=== PATIENT | female | born 1930 | race Caucasian/White ===

== ENCOUNTER 2017-06-21 12:30 | Outpatient (CLI) | payer MEDICARE, OTHER | END 2017-06-21 12:31 | disposition home or self-care (01) | LOC: BICRAD 12:30 | PROVIDERS: ATTEND Internal Medicine Rheumatology | DX: M54.5 Low back pain (principal); M47.896 Other spondylosis, lumbar region; M54.6 Pain in thoracic spine; M85.88 Other specified disorders of bone density and structure, other site; M41.9 Scoliosis, unspecified | CPT/HCPCS: 72070; 72100 ==

== ENCOUNTER 2017-07-10 08:56 | Inpatient (IN) | payer MEDICARE, OTHER ==
[2017-07-10 09:37] LABS: INR-International Normal Ratio 1.9
[2017-07-10 09:40] LABS: Band 29 % (5-11); Hemoglobin 11.2 g/dL (12.0-16.0); Lymphocytes 5 % (21-51); MDiff Complete? YES; Mean Corpuscular HGB CONC 32.2 g/dL (32.0-36.0); Mean Corpuscular Hemoglobin 31.9 pg (27.0-31.0); Mean Corpuscular Volume 99.2 fl (81.0-99.0); Mean Platelet Volume 7.6 fL (7.4-10.4); Metamyelocyte 1 % (0-0); Monocytes 4 % (0-10); Neutrophil 61 % (42-75); Platelet Count 332 thou/uL (130-400); RBC Distribution Width 14.3 % (11.5-14.5); Red Blood Cell (RBC) Count 3.51 mill/uL (4.20-5.40); Toxic Granulation SLIGHT; Vacuoles SLIGHT; White Blood Cell (WBC) Count 13.9 thou/uL (4.8-10.8)
[2017-07-10 09:43] LABS: ALT (SGPT) 12 U/L (8-55); AST (SGOT) 18 U/L (5-34); Albumin 3.4 g/dL (3.4-4.8); Alkaline Phosphatase 61 U/L (40-150); Anion Gap 17 mmol/L (10-20); BUN (Urea Nitrogen) 60 mg/dL (9.8-20.1); Bilirubin, Total 0.5 mg/dL (0.2-1.2); Calc. Creatinine Clearance 0 mL/min (70-130); Calcium 11.3 mg/dL (7.8-10.44); Carbon Dioxide 29 mmol/L (23-31); Chloride 93 mmol/L (98-107); Estimated GFR-MDRD 8; Glucose 114 mg/dL (83-110); Potassium 4.1 mmol/L (3.5-5.1); Protein, Total 6.4 g/dL (6.0-8.3); Sodium 135 mmol/L (136-145)
[2017-07-10 09:50] LABS: Actual Bicarbonate (HCO3a) 27.7 mEq/L (22-26); Base Excess (BEa) 4.2 mEq/L (0 (+/-) 2.5); CO2 Tension 37.1 mmHg (35.0-45.0); Calcium, Ionized 1.3 mmol/L (1.12-1.30); Hematocrit-ABG 33.8 % (36.0-47.0); Hemoglobin (Hb) 9.9 g/dL (12.0-16.0); O2 Tension (PaO2) 85.3 mmHg (80.0-100.0); pH, Arterial 7.49 (7.35-7.45)
[2017-07-10 09:51] LABS: Analyzer IN Cardio ER
[2017-07-10 09:52] LABS: ALV-art Gradient 84.325 (0-20); Puncture Site RRA
[2017-07-10 09:53] LABS: CKMB 3.5 ng/mL (0-6.6); Troponin I 0.204 ng/mL (< 0.028)
[2017-07-10 10:23] LABS: Bilirubin Small (Negative); Blood, Urine Negative (Negative); Clarity CLOUDY (Clear); Glucose, Urine (Dipstick) Negative (Negative); Leukocyte Negative (Negative); Nitrite Negative (Negative); Protein, Urine (Dipstick) 100 mg/dL (Neg-Trace); Urobilinogen 0.2 mg/dL (0.2-1.0)
[2017-07-10 10:26] LABS: Bacteria/HPF None Seen HPF (None Seen); Hyaline Casts/LPF 0-3 HYALINE CAST LPF (0-3 Hyaline); Squamous Epithelial None Seen HPF (0-3); WBC/HPF 0-3 HPF (0-3)
--- NOTE | 2017-07-10 11:04 | RAD ---
FRONTAL VIEW CHEST: COMPARISON: 07/07/17. INDICATION: Dyspnea. FINDINGS: There is redemonstration of right-side tunneled vascular catheter. No lobar consolidation. Linear d ensity at the left lower lung, laterally, may relate to atelectasis. No effusion or discrete pneumot horax. There is extrinsic artifact limiting detail. No additional significant interval change. IMPRESSION: 1. No lobar consolidation. 2. Additional details are described above. POS: [facility]
[2017-07-10] MEDS ORDERED: cefTRIAXone\\ROCEPHIN 1 GM in Sodium Chloride 0.9% 100 ML IVPB SCH (11:15)
[2017-07-10] MEDS ORDERED: Dextrose 5% in Water 1,000 ML IV PRN (11:16)
[2017-07-10] MEDS ORDERED: Dextrose 50% Abboject 50 ML SYRINGE SLOW IVP PRN (11:16)
[2017-07-10] MEDS ORDERED: Azithromycin 500 MG VIAL ONE (11:17)
[2017-07-10] MEDS ORDERED: Vancomycin HCl 1.5 GM in Sodium Chloride 0.9% 250 ML 300 ML IVPB SCH (11:30)
--- NOTE | 2017-07-10 12:34 | PRG ---
DATE OF SERVICE: 07/10/2017 RENAL MEDICINE SUBJECTIVE: Ms. 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 She is currently on maintenance hemodialysis. She came in for shor tness of breath. She was initially noted to be hypoxemic. She was started on BiPAP with improvement of her oxygenation. We are now being consulted for her maintenance hemodialysis. Please note that the patient actually has some increased lung markings. Unclear if she has pneumonia. However, she w ill be empirically treated for pneumonia. Please note patient has some upper respiratory tract sympt oms in the last several days and this has not really improved. She has also noted to have a mildly e levated white count and will be empirically treated with IV antibiotics. We are seeing her for initi ation of dialysis at the hospital. REVIEW OF SYSTEMS: Positive for shortness of breath. No nausea, no vomiting. Denies any overt feve r, no chest pain. Appetite decreased. Energy level is decreased. No joint pains, no gross hematuri a. No dysuria. No urinary frequency. No hematochezia, no melena, no hematemesis. HOME MEDICATIONS: Includes the following; prednisone 40 mg q.a.m., glipizide ER 2.5 mg q.a.m., cloni dine 0.2 mg p.o. b.i.d., Renvela 800 mg t.i.d. with meals, Protonix 40 mg daily, nifedipine 30 mg b.i .d., lisinopril 20 mg b.i.d., furosemide 40 mg b.i.d.?, Coreg 12.5 mg p.o. b.i.d., atorvastatin 10 mg tab q.p.m., and Eliquis 2.5 mg once a day. 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 PAST SURGICAL HISTORY: 1. Status post renal biopsy. 2. Status post right IJ dialysis catheter placement. 3. Status post breast biopsy. 4. Status post eye surgery. 5. Status post bilateral mastectomies. 6. Status post aortic valve replacement. 7. Status post tonsillectomy. 8. Status post appendectomy. ALLERGIES: None. TRAUMA: None. IMMUNIZATIONS: Up to date. HOSPITALIZATION: Please see past medical history. SOCIAL HISTORY: The patient currently lives with one of her nephew/niece. 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 Education: Some college courses. No history of smoking, no alcohol intake , no IV drug abuse. Status post blood transfusion. Currently lives in [facility]. She is , no children. Originally from [place]. FAMILY HISTORY: Noncontributory. PHYSICAL EXAMINATION: VITAL SIGNS: Blood pressure 150/70, heart rate 70, pulse ox is 90% plus. GENERAL: Awake, comfortable, on BiPAP, not in overt distress. SKIN: Adequate turgor. HEENT: Patient has pinkish conjunctivae, anicteric sclerae. NECK: No neck mass, no carotid bruits, no JVD. CHEST: No deformities. LUNGS: Decreased breath sounds. HEART: Normal sinus rhythm. No murmurs, no gallops, no rubs. ABDOMEN: Globular, soft, nontender, no masses. EXTREMITIES: No edema. LABORATORY DATA: Laboratories of 07/10/2017; white count 13.9, hemoglobin 11.2. Sodium 135, potassi um 4.1, chloride 93, carbon dioxide 29, BUN 60, creatinine 5.34, glucose 114, calcium 11.3, AST 18, A LT 12, BNP 1375, albumin 3.4. IMAGING DATA: Chest x-ray of 07/10/2017, no lobar consolidation. There is a linear density of left lower lung field. No overt CHF. ASSESSMENT AND PLAN: 1. Shortness of breath - this could be from an underlying infection? pneumonia versus congestive hea rt failure. We will do an emergent hemodialysis. We will attempt to remove between 2 and 3 liters o f fluid as tolerated by the patient. After the dialysis today, I will maintain her on a Wednesday, Wed, and Wednesday hemodialysis regimen. Review of the last Kt/V suggested that she is adequately d ialyzed with the current dialysis regimen. 2. End-stage renal disease as previously mentioned. Emergent dialysis. Continue Wednesday, , and Wednesday dialysis. Please note, the patient had been receiving rituximab from her hand mounter due to her glomerulonep hritis. However, we have not seen any evidence of renal recovery where I can get off dialysis. Cont inue supportive care.
[2017-07-10 14:10] VITALS: BMI 24.1
--- NOTE | 2017-07-10 16:12 | HP ---
HISTORY OF PRESENT ILLNESS: This is an 87-year-old white female with end-stage renal disease seconda ry to diabetes/lupus, who presents with shortness of breath. The patient is followed by Dr. Robles and Dr. Oakes. She receives dialysis on a regular basis. Over the past week, she has been having inc reasing cough and congestion with low grade fever. This morning, she was having increasing shortness of breath and was unable to go to dialysis. She presented to the emergency room where she was immed iately started on BiPAP and she did well. At this time, she is much more comfortable and less respir atory distress. The BiPAP is helping her significantly. She was also found to have an elevated lact ic acid as well as an elevated white count of 14,000. Chest x-ray showed no obvious pneumonia. PAST MEDICAL HISTORY: 1. Includes lupus, but the diagnosis is uncertain at this time. She is presently being reworked by Dr. Devi. 2. End-stage renal disease. 3. Diabetes. PAST SURGICAL HISTORY: Include hysterectomy in 1985, double mastectomy in 1992, lens implant 2002, a ppendectomy, tonsillectomy, and aortic valve replacement. FAMILY HISTORY: Unremarkable. SOCIAL HISTORY: She is a nonsmoker. Presently living with a cousin in [facility]. ALLERGIES: HYDRALAZINE. REVIEW OF SYSTEMS: As above. PHYSICAL EXAMINATION: VITAL SIGNS: Stable, afebrile at this time. GENERAL: In no acute distress on BiPAP at this time, able to converse. HEENT: Clear. HEART: Regular rate and rhythm. LUNGS: With bilateral expiratory wheezing. ABDOMEN: Soft, nontender. EXTREMITIES: With trace edema. LABORATORY DATA: White count 13.9, H&H 11 and 34, platelets of 332. INR 1.9. Blood gas: pH 7.49, CO2 of 37, O2 of 85. Sodium 135, potassium 4.1, creatinine 5.3, BUN 60, CO2 of 29, blood sugar 114. Lactic acid 2.3. BNP 1375. Troponin 0.204. Chest x-ray with no lobar consolidation and atelectasi s present. No effusion present. ASSESSMENT: 1. Acute respiratory distress. 2. Pulmonary vascular congestion. 3. End-stage renal disease secondary to lupus/diabetes. 4. Diabetes. PLAN: 1. Admit. 2. Dialysis today. 3. Dr. Oakes consulted. 4. Continue to follow. 5. We will monitor CBC and electrolytes. 6. Dr. Devi presently in the process of evaluating the diagnosis of lupus. Patient may have dawn e type of vasculitis. 7. We will continue the Rocephin daily. 8. Blood culture and urine culture is pending.
[2017-07-10] MEDS ORDERED: cloNIDine 0.2 MG TAB PO PRN (16:14)
[2017-07-10 16:17] LABS: Hep B Surf Ag Non-Reactive S/CO (NonReactive)
[2017-07-10] MEDS: Sevelamer Carbonate 800 MG TAB PO SCH ×2 (18:11→19:05)
--- NOTE | 2017-07-10 19:39 | CON ---
DATE OF CONSULTATION: 07/10/2017 SERVICE: Pulmonary Medicine. HISTORY OF PRESENT ILLNESS: Patient is an 87-year-old white female with past medical history significant for end-stage renal disease. She dialyzes on Tuesdays, , and Saturdays. She has been having increasing difficulty breathing and cough going on for a little over a week. They have been increasing much fluid, they have been removing, but it had not had any significant impact on the way that she was feeling. This is a similar presentation to when she was diagnosed with this vascularity. Otherwise, there has been no interval change to her condition. She denies having any fevers, chills, nausea, vomiting or sputum production. She did have increasing weakness. They put her on oxygen in the emergency department immediately. She felt a little bit better. She is currently on dialysis. PAST MEDICAL HISTORY: 1. 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 2. End-stage renal disease. 3. Type 2 diabetes mellitus. PAST SURGICAL HISTORY: 1. Hysterectomy. 2. Double mastectomy. 3. Cataract surgery. 4. Appendectomy. 5. Tonsillectomy. 6. Aortic valve replacement. FAMILY HISTORY: Noncontributory. SOCIAL HISTORY: She denies any alcohol, tobacco or illicit drug use. She is presently living with a cousin in [facility]. ALLERGIES: HYDRALAZINE. MEDICATIONS LIST FOR INPATIENT MEDICATIONS: Reviewed. No specific updates were made at this time. REVIEW OF SYSTEMS: General, head, ears, eyes, nose, throat, cardiovascular, respiratory, GI, , musculoskeletal, neurologic and skin is negative except as mentioned in the HPI. PHYSICAL EXAMINATION: VITAL SIGNS: Afebrile, pulse 97, blood pressure 134/63, respirations 26, saturation 96% on 2-1/2 liters nasal cannula. GENERAL: Patient is awake, alert, in no apparent distress. LUNGS: Decent air entry. There is no prolonged expiratory phase. Crackles are present HEART: Normal rate, regular. ABDOMEN: Soft, nontender, nondistended. Bowel sounds are positive. MUSCULOSKELETAL: No cyanosis or clubbing. There is 1-2+ pitting in the bilateral lower extremities. NEUROLOGIC: Grossly nonfocal. LABORATORY DATA: Previous ANCA studies were positive. The anti-MPO was also elevated, suggested this is likely a very true vascularity that we could be dealing with. On this presentation, WBC 13.9, hemoglobin 11.2, platelets 332, 000. Neutrophil count is 61% with 29% bands. INR 1.9. PH 7.49, pCO2 of 37, pO2 of 85. Creatinine 5.34. Basic metabolic profile and liver function studies otherwise unremarkable. BNP 1300, troponin 0.2. IMAGING: Chest x-ray demonstrates no obvious lobar consolidation. Low lung volumes are evident. Culture in bilateral axilla. No obvious pleural effusion is present. There is a dialysis catheter in good position. ASSESSMENT: 1. Acute hypoxic respiratory failure. 2. End-stage renal disease. 3. 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 4. Systemic inflammatory response syndrome. PLAN: The patient is currently getting broad spectrum antibiotic coverage. I think this is reasonable. We will await the culture results. If she fails to improve her oxygen status with aggressive dialysis and starts developing any infiltrates, my suspicion is that we may be dealing with resurgence the vasculitic process. She is on prednisone 40 mg on a daily basis at home. She has not had any true chemotherapy directed at her vasculitis for several months now. She is due for next dose in August, they have been trying to stretch this thing out. Otherwise, supportive measures will be continued. She no longer requires BiPAP. 70 minutes have been devoted to this patient in various activities. For at least half of this time, I was at the bedside in direct patient interaction or coordinating care with the care team. For the remainder of the time I was immediately available to the patient in the hospital unit. SEAN
[2017-07-10] MEDS: Carvedilol 6.25 MG TAB PO SCH (21:13)
[2017-07-10] MEDS: Apixaban 5 MG TAB PO SCH (21:13)
[2017-07-10] MEDS: Latanoprost 0.005% Ophth Soln 2.5 ml Bottle EA EYE SCH (21:14)
[2017-07-10] MEDS: Atorvastatin Calcium 10 MG TAB PO SCH (21:14)
[2017-07-10] MEDS: NIFEdipine XL 30 MG TAB PO SCH (21:14)
[2017-07-11 05:36] LABS: Anion Gap 15 mmol/L (10-20); BUN (Urea Nitrogen) 32 mg/dL (9.8-20.1); Calc. Creatinine Clearance 13 mL/min (70-130); Calcium 11.2 mg/dL (7.8-10.44); Carbon Dioxide 30 mmol/L (23-31); Chloride 96 mmol/L (98-107); Estimated GFR-MDRD 13; Glucose 79 mg/dL (83-110); Potassium 3.7 mmol/L (3.5-5.1); Sodium 137 mmol/L (136-145)
[2017-07-11 05:54] LABS: Band 18 % (5-11); Hemoglobin 10.5 g/dL (12.0-16.0); Lymphocytes 5 % (21-51); MDiff Complete? YES; Mean Corpuscular HGB CONC 31.6 g/dL (32.0-36.0); Mean Corpuscular Hemoglobin 31.7 pg (27.0-31.0); Mean Platelet Volume 7.3 fL (7.4-10.4); Metamyelocyte 2 % (0-0); Monocytes 4 % (0-10); Myelocyte 2 % (0-0); Neutrophil 69 % (42-75); Platelet Count 319 thou/uL (130-400); RBC Distribution Width 14.2 % (11.5-14.5); Red Blood Cell (RBC) Count 3.32 mill/uL (4.20-5.40); White Blood Cell (WBC) Count 15.6 thou/uL (4.8-10.8)
[2017-07-11] MEDS: predniSONE 20 MG TAB PO SCH (08:45)
[2017-07-11] MEDS: NIFEdipine XL 30 MG TAB PO SCH ×2 (08:45→20:41)
[2017-07-11] MEDS: Apixaban 5 MG TAB PO SCH ×2 (08:45→20:41)
[2017-07-11] MEDS: Sevelamer Carbonate 800 MG TAB PO SCH ×3 (08:45→17:21)
[2017-07-11] MEDS: Lisinopril 20 MG TAB PO SCH (08:45)
[2017-07-11] MEDS: Furosemide 40 MG TAB PO SCH (08:45)
[2017-07-11] MEDS: Carvedilol 6.25 MG TAB PO SCH ×2 (08:46→20:41)
[2017-07-11] MEDS: cefTRIAXone\\ROCEPHIN 1 GM, Syringe 0.4 ML in Sterile Water 9.6 ML SLOW IVP SCH (09:45)
[2017-07-11] MEDS: Azithromycin 500 MG in Sodium Chloride 0.9% 250 ML 250 ML IVPB SCH (11:09)
--- NOTE | 2017-07-11 11:16 | PRG ---
DATE OF SERVICE: 07/11/2017 SUBJECTIVE: The patient is less short of breath compared to yesterday, but still having breathing di fficulties. She is sitting straight up in the bed. She states that this is her baseline for the pas t 2 years. OBJECTIVE: VITAL SIGNS: Temperature 99.6, pulse 97, respiration 24, pulse ox 93 on 3 liters, blood pressure 148 /73. HEART: Regular rate and rhythm. LUNGS: With bilateral rhonchi and rales, less so than yesterday. ABDOMEN: Soft. EXTREMITIES: With trace edema. LABORATORY DATA: White count 15.6, H&H is 10 and 33, platelets 319, sodium 137, potassium 3.7, CO2 3 0, creatinine 3.3, BUN 32, blood sugar 84, lactic acid decreased from 2.3-1.0. ASSESSMENT: 1. Acute hypoxic respiratory failure. 2. End-stage renal disease. 3. Vasculitis. 4. Systemic inflammatory response syndrome. PLAN: 1. Continue antibiotics. 2. Urine and blood cultures negative at this time. 3. Continue to follow with Dr. Prince and Dr. Oakes. Unsure if patient needs to increase steroids or further dialysis, this may be simply due to her vasculitis. 4. Consider albuterol neb treatments if indicated by Dr. Prince. 5. ANCA pending
--- NOTE | 2017-07-11 12:15 | PRG ---
DATE OF SERVICE: 07/11/2017 RENAL MEDICINE SUBJECTIVE: Ms. Curiel is still complaining of shortness of breath. She was on BiPAP yesterday. S he underwent emergent hemodialysis. We were able to remove 2 liters of fluid off her. Subjective feeling of shortness of breath this morning. However, on 2 liters, she is oxygenating 98% . The chest x-ray did not show overt CHF or any significant infiltrates. She has underlying ESRD from chronic glomerulonephritis. Please note she has undergone a course of I V rituximab for the possibility of a vasculitis. I do not see any renal improvement with this course of immunosuppressive regimen. She is being followed up by Dr. Devi, her curriculum and instruction director. A repe at ANCA has been sent again. At one time, he felt that she may not be a candidate for Cytoxan and will consider alternative immuno suppressive regimen with her, which is rituximab. OBJECTIVE: VITAL SIGNS: Blood pressure is 136/69, heart rate is 90, respiratory rate 36, pulse ox is 97%. GENERAL EXAM: Awake, sitting, not in overt distress, but does complain of mild shortness of breath. SKIN: Adequate turgor. HEENT: She has pinkish conjunctivae, anicteric sclerae. NECK: No neck mass, no carotid bruits, no JVD. CHEST: No deformities. LUNGS: Clear breath sounds. No wheezing. HEART: Normal sinus rhythm. No murmurs, no gallops, no rubs. ABDOMEN: Globular, soft, nontender, no masses. EXTREMITIES: No edema. MEDICATIONS: Medications of 07/11/2016 reviewed. LABORATORY DATA: Laboratories of 07/11/2017, white count 15.6, hemoglobin 10.5, sodium 137, potassiu m 3.7, chloride 96, carbon dioxide 30, BUN 32, creatinine 3.33, glucose 79, calcium is noted to be at 11.2. BNP is 1375. ASSESSMENT AND PLAN: 1. Shortness of breath - presumptive congestive heart failure. Consider repeating a cardiac echocar diogram. She is also being empirically treated with antibiotics for possible pulmonary infection. Trinh reina is also following. We are awaiting ANCA. 2. End-stage renal disease - secondary to chronic glomerulonephritis. She has received a course of IV rituximab with her curriculum and instruction director. No improvement with the renal function. Overall, I agree with current management. Continue supportive care. We will check basic metabolic panel and CBC in a.m. and cardiac echo.
--- NOTE | 2017-07-11 18:39 | PRG ---
DATE OF SERVICE: 07/11/2017 SERVICE: Pulmonary Medicine. INTERVAL HISTORY: The patient is doing fine from a respiratory standpoint. She indicates that she i s breathing comfortably, but she seems to have increasing work of breathing and a little conversation al dyspnea. Otherwise, there has been no interval change to her condition. She remains quite weak. PHYSICAL EXAMINATION: VITAL SIGNS: Afebrile, pulse 80, blood pressure 147/77, respirations 22, saturation 95% on 3 liters nasal cannula. GENERAL: The patient is awake and alert. No apparent distress. LUNGS: Bilateral rhonchi and crackles are present. No prolonged expiratory phase or wheezing is rama reciated. HEART: Normal rate, regular. ABDOMEN: Soft, nontender, nondistended. Bowel sounds are positive. MUSCULOSKELETAL: No cyanosis or clubbing. No pitting in the bilateral lower extremities. NEUROLOGIC: Grossly nonfocal. LABORATORY DATA: WBC 15.6, hemoglobin 10.5 and downtrending, platelets 319,000. INR 1.9. Creatinin e 3.3 after dialysis yesterday. Basic metabolic profile is otherwise unremarkable. Calcium is eleva mina at 11.2. ANCA are currently pending. Respiratory virus panel is negative for any acute viral pa thogens. ASSESSMENT: 1. Acute hypoxic respiratory failure. 2. End-stage renal disease. 3. Pulmonary infiltrate. 4. 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 5. Systemic inflammatory response syndrome. PLAN: We are awaiting the ANCAs to return. I am going to repeat chest x-ray tomorrow morning. If t he infiltrates are getting worse and her blood continues to drop, bronchoscopy will set up to determi ne whether or not diffuse alveolar hemorrhage is playing a role here. She is on Rituxan in the outia tient setting, but her last dose was back in May. At this point, I do believe the patient is eu volemic and I do not think that additional attempts at getting her long goods drier warranted.
[2017-07-11] MEDS: Atorvastatin Calcium 10 MG TAB PO SCH (20:41)
[2017-07-11] MEDS: Latanoprost 0.005% Ophth Soln 2.5 ml Bottle EA EYE SCH (20:42)
[2017-07-11] MEDS ORDERED: Amiodarone HCl 150 MG, Admixture Fee 1 EACH in Dextrose 5% in Water 100 ML IVPB SCH (21:45)
[2017-07-11] MEDS: Amiodarone HCl 450 MG, Admixture Fee 1 EACH in Dextrose 5% in Water 250 ML IVPB SCH (22:21)
[2017-07-12 04:54] LABS: Anion Gap 17 mmol/L (10-20); BUN (Urea Nitrogen) 60 mg/dL (9.8-20.1); Calc. Creatinine Clearance 9 mL/min (70-130); Calcium 11.9 mg/dL (7.8-10.44); Carbon Dioxide 29 mmol/L (23-31); Chloride 95 mmol/L (98-107); Estimated GFR-MDRD 9; Glucose 126 mg/dL (83-110); Potassium 4.3 mmol/L (3.5-5.1); Sodium 137 mmol/L (136-145)
[2017-07-12 05:10] LABS: Band 20 % (5-11); Hemoglobin 10.6 g/dL (12.0-16.0); Lymphocytes 5 % (21-51); MDiff Complete? YES; Mean Corpuscular HGB CONC 31.9 g/dL (32.0-36.0); Mean Corpuscular Hemoglobin 32.1 pg (27.0-31.0); Mean Platelet Volume 7.4 fL (7.4-10.4); Metamyelocyte 2 % (0-0); Monocytes 7 % (0-10); Myelocyte 2 % (0-0); Neutrophil 64 % (42-75); Platelet Count 379 thou/uL (130-400); Red Blood Cell (RBC) Count 3.32 mill/uL (4.20-5.40); White Blood Cell (WBC) Count 19.2 thou/uL (4.8-10.8)
[2017-07-12] MEDS: Amiodarone HCl 450 MG, Admixture Fee 1 EACH in Dextrose 5% in Water 250 ML IVPB SCH ×2 (07:27→21:28)
[2017-07-12] MEDS: NIFEdipine XL 30 MG TAB PO SCH ×2 (08:08→20:33)
[2017-07-12] MEDS: predniSONE 20 MG TAB PO SCH (08:08)
[2017-07-12] MEDS: Carvedilol 6.25 MG TAB PO SCH ×2 (08:08→20:33)
[2017-07-12] MEDS: Lisinopril 20 MG TAB PO SCH (08:09)
[2017-07-12] MEDS: Furosemide 40 MG TAB PO SCH (08:09)
[2017-07-12] MEDS: Sevelamer Carbonate 800 MG TAB PO SCH ×3 (08:09→16:49)
[2017-07-12] MEDS: Apixaban 5 MG TAB PO SCH ×2 (08:09→20:32)
[2017-07-12] MEDS: cefTRIAXone\\ROCEPHIN 1 GM, Syringe 0.4 ML in Sterile Water 9.6 ML SLOW IVP SCH (09:59)
--- NOTE | 2017-07-12 09:59 | RAD ---
CHEST 2 VIEWS: HISTORY: Followup infiltrate or vasculitis. COMPARISON: Chest 1 view, 07/10/17. FINDINGS: Worsening left lower lobe and linear airspace opacification. No pneumothorax. No pneumothorax. Central venous catheter is similar. Cardiac valve is similar. IMPRESSION: Worsening left lower lobe and lingular pneumonia. Followup recommended. POS: [facility]
[2017-07-12] MEDS: Azithromycin 500 MG in Sodium Chloride 0.9% 250 ML 250 ML IVPB SCH (11:07)
--- NOTE | 2017-07-12 13:39 | PRG ---
DATE OF SERVICE: 07/12/2017 HISTORY OF PRESENT ILLNESS: The patient states she had difficulty sleeping last night and was found to be in atrial fibrillation with RVR. She was started on an amiodarone drip with good response to h eart rate. She states she feels much better, still has some shortness of breath with speaking, is st able on nasal cannula otherwise. The patient verbalizes understanding of findings of left lobar lowe r and lingular pneumonia and concern for flare up of Bella's vasculitis. She has no other acute co mplaints this a.m. VITAL SIGNS: Temperature 97.7, heart rate peaking on documentation at 143 at 2141 hours last night. Last check at 72 of 11:00 a.m. today. Blood pressure 144/68, oxygen saturation 98% on 4 liters nasa l cannula, respiratory rate of 24. LABORATORY DATA: White blood cell count of 19.2, hemoglobin of 10.6, platelet count of 379, blood gl ucoses last 12 hours 164 to 115 range. Magnesium 2.0. Potassium of 4.3, sodium 137, CO2 29, creatin ine 4.27, BUN of 60, calcium of 11.9, hepatitis B surface antigen nonreactive. Point of care was neg ative, no growth on blood cultures x2 at 48 hours. No growth in urine culture at 48 hours. Major vi ral panel of sputum, nasopharynx swab negative. P-ANCA is pending. Echo report; ejection fraction o f 50-60%, left ventricular size is normal. Left atrial size moderately dilated. Chest x-ray showing left lobar and lingular pneumonia as above. Central venous catheter intact to right side. No pneum othorax. PHYSICAL EXAMINATION: GENERAL: The patient is alert and oriented, in mild respiratory effort when speaking in regards to d istress, no distress otherwise at rest. HEENT: Head is normocephalic, atraumatic. Extraocular movements are intact. Sclerae are white. Na lizbeth cannula in place. Oral mucosa is moist. NECK: Supple. Right tunneled catheter in place without erythema or exudates present. Dressing inta ct overlying line. CARDIOVASCULAR: Irregularly irregular rate and rhythm, regular rate otherwise. At the time of exam, prosthetic heart valve easily auscultated. LUNGS: Lungs with diminished breath sounds bilaterally, left greater than right. No wheezes or rale s at the time of exam. ABDOMEN: Soft, nontender, positive bowel sounds throughout, slightly bloated. EXTREMITIES: Lower extremities without cyanosis or edema. NEUROLOGIC: The patient is alert and oriented x3. Hard of hearing. No focal deficits. Speech is n ormal. ASSESSMENT AND PLAN: 1. Left lobar pneumonia with acute respiratory failure. Continue oxygen support. Pulmonology follo wing. We will follow their recommendations. The patient currently treated with Rocephin and azithro mycin. Nothing in cultures to change this at this point in time. 2. Bella's vasculitis. Follow up on P-ANCA for activity state, may be playing a part in the patie nt's lung function decline. 3. End-stage renal disease on hemodialysis secondary to Bella's. Nephrology following. Dialysis on Wednesday, , Saturdays. Plans for fistula formation are delayed secondary hospitalization, will resume on stabilization of the patient upon discharge. 4. Diastolic heart failure, appears stable, ejection fraction on echo with lung etiologies and heart etiologies. The patient entered atrial fibrillation with RVR, treated with amiodarone drip which kelsey s been titrated down. Will default to Critical Care and Cardiology at this point for p.o. recommenda tions or continuation of the patient's carvedilol otherwise. 5. Prosthetic heart valve, continuation on Eliquis at this point in time, no signs of bleeding. 6. Diabetes, continuation of sliding scale insulin checks. The patient is continued on 2.5 mg of Gl ucotrol, no hypoglycemia recorded in the last 24 hours. We will continue at this point in time. DISPOSITION: Once the patient has been stabilized from a respiratory and cardiac standpoint and unde rgone dialysis and proven to be stable afterwards, likely a candidate for floor transition. Follow u p on cardiac recommendations regarding heart rate last night.
--- NOTE | 2017-07-12 15:13 | CON ---
CARDIOLOGY CONSULTATION NOTE DATE OF CONSULTATION: 07/12/2017 PRIMARY CARE PHYSICIAN: Dr. Jerry Robles. PRIMARY PRODUCT ARCHITECT: Dr. Lisbeth Castillo. REFERRING PHYSICIAN: Dr. Prakash Prince. REASON FOR CARDIOLOGY CONSULTATION: AFib with RVR. HISTORY OF PRESENT ILLNESS: Ms. Curiel is an 87 years old female with significant history of hypertension and chronic kidney disease with hemodialysis on Wednesday, and Wednesday, which is managed by Dr. Oakes. The patient presented to Emergency Department due to worsening of shortness of breath for about 1 week. Because the patient's shortness of breath became worse associated with weakness, the patient's nephew brought the patient to the [facility] last Wednesday for further evaluation and treatment. The patient has been treated by her primary care doctor, Dr Oakes, and pulmonologists during this admission. The patient had been in the sinus rhythm until last night on 07/11/2017 at 1930. Her heart rhythm changed into atrial fibrillation with rapid ventricular response at 1930 on 07/11/2017 to 0920, 07/12/2017. The patient was asymptomatic and denied palpitation or fluttering in her chest. She is receiving amiodarone drip at this moment. The last office note on 06/15/[address] Castillo' office showed her vital sign showed bradycardia and hypotension. During initial cardiology consult assessment, the patient denied any dizziness, lightheadedness, chest pain or discomfort, diaphoresis, nausea, vomiting or any other cardiac complaints. She has a history of atrial valve replacement with bioprosthetic valve in 2016. She also have history of mild diastolic dysfunction. Her echocardiogram on showed an ejection fraction of 50% to 60%, moderate dilated left atrium , mild tricuspid regurgitation and mild mitral valve regurgitation. She never had a history of atrial fibrillation before. PAST MEDICAL HISTORY: 1. Aortic valve replacement with bioprosthetic valve in 2016, in [place]. 2. Lupus nephritis. 3. Chronic kidney disease, hemodialysis on Wednesday, , and Wednesday, which is managed by Dr. Oakes. 4. Hypertension. 5. Dyslipidemia. 6. Diabetes type 2. 7. Chronic diastolic heart failure. PAST SURGICAL HISTORY: 1. AV placement. 2. Total hysterectomy. 3. Appendectomy. 4. Tonsillectomy. 5. Bilateral lens replacement. 6. Mastectomy. FAMILY HISTORY: Her father due to complication of myocardial infarction. The patient's nephew has a history of diabetes and hypertension. Other than that, there are no significant history of coronary artery disease, diabetes, CVA or hypertension in her family. SOCIAL HISTORY: She denies tobacco, alcohol, or illicit drug abuse. She moved to [place], [place] from [place] about 1 year ago. 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 She live by herself nearby her nephew. ALLERGIES: She is allergic to HYDRALAZINE. HOME MEDICATIONS: Nifedipine ER 30 mg once a day, Eliquis 2.5 mg twice a day, Lasix 40 mg once a day, atorvastatin 10 mg once a day, prednisone 40 mg once a day, Protonix 40 mg once a day, glipizide ER 2.5 mg 1 tablet once a day, sevelamer carbonate 800 mg 2 tablets 3 times a day with food, Sensipar 30 mg once a day with food, carvedilol 6.25 mg twice a day, latanoprost 0.005% eye drop every day at evening time, lisinopril 10 mg once a day, clonidine 0.1 mg 1 tablet every 4 hours as needed for elevated blood pressure. REVIEW OF SYSTEMS: The following complete review of systems was negative, unless otherwise mentioned in the HPI or below. CONSTITUTIONAL: Weight loss or gain, sense of well being, ability to conduct usual activities, exercise tolerance. SKIN: Rash, itching, change in hair growth or loss, nail change. BREASTS: Breast lump, tenderness, swelling, nipple discharge. EYES: Vision change, double vision, tearing, blind spots, pain. HENT: Headache, vertigo, lightheadedness, nose bleeding, cold, obstruction, discharge, dental difficulty, gingival bleeding, denture, neck stiffness, pain, tenderness, mass in thyroid or other areas. CARDIOVASCULAR: Precordial pain, substernal distress, palpitations, syncope, dyspnea on exertion, orthopnea, nocturnal dyspnea, edema, cyanosis, heart murmur , varicosis claudication. RESPIRATORY: Pain, wheezing, stridor, hemoptysis, fever or night sweats. GASTROINTESTINAL: Poor appetite, dyspnea, indigestion, abdominal pain, heartburn, eructation, nausea, vomiting, jaundice, constipation, or diarrhea, blood in the stool. GENITOURINARY: Urgency, frequency, dysuria, nocturia, hematuria, polyuria, oliguria, unusual color of urine. MUSCULOSKELETAL: Positive to general weakness due to muscle loss from last hospitalization, but negative to pain, swelling, redness or heat of muscle or joint, limitation of motion, atrophy, cramps. NEUROLOGIC: Convulsion, paralysis, tremor, incoordination, difficulty with memory of speech, sensory or motor disturbance or muscular coordination. PSYCHIATRIC: Emotional problem, anxiety, depression, previous psychiatric care , unusual perceptions and hallucinations. PHYSICAL EXAMINATION: VITAL SIGNS: Blood pressure 144/68, heart rate 72, sinus rhythm, respiratory rate 24, O2 sat 98% with 4 liters nasal cannula and temperature 97.7. GENERAL: Well-developed, well-nourished without any acute distress; however, when she starts talking or eating, she started having shortness of breath. HEAD: Normocephalic and atraumatic. EYES: Extraocular muscle movements are intact. ENT: Oral and nasal mucosa are moist without lesion. NECK: No JVD. Neck is supple. Normal range of motion. LUNGS: Diminished coarse and diminished bilaterally at the bases. No wheezing , rales or rhonchi noted. CARDIOVASCULAR: Regular rate and rhythm. Normal S1 and S2. There are no S3 or S4. No significant murmur, hives, thrills, bruits or rub noted. There are 2 + pulses in the bilateral dorsal pedis, posterior tibial and popliteal. Carotid pulse present without bruits or thrills. No edema in the bilateral lower extremities. ABDOMEN: Soft, nontender or mass to palpate, nondistended. Bowel sounds are present. She is tolerating p.o. oral intake. MUSCULOSKELETAL: Able to move all extremities. No calf tenderness. SKIN: Warm and dry. No skin rash or lesion or bruise noted. NEUROLOGIC: Alert, oriented x4 and awake. Normal affect. PSYCHIATRIC: Mood and affect are normal. IMAGING DATA: EKG last night showed AFib with RVR; however, at this moment, the patient's telemetry records is showing the sinus rhythm, heart rate around 70s and 80s. LABORATORY DATA: WBC 19.2, hematocrit 33.3, hemoglobin 10.6 and hematocrit 30.3 , platelets 379. Sodium 137, potassium 4.3, BUN 60, creatinine 4.72 and glucose 129. BNP on 07/10 was 1375.4. ASSESSMENT AND PLAN: 1. Atrial fibrillation with rapid ventricular response. The patient converted back to sinus rhythm this morning around 0920. Since then, the patient has maintained sinus rhythm with occasional PACs with amiodarone drip. We would like to continue amiodarone drip at this moment and eventually we would like to change to p.o. form. The patient is on Eliquis 2.5 mg twice a day at this moment. It may be beneficial for this patient to discharge home with event monitor to continue to monitor the patient's heart rhythm. We would like to continue to monitor the patient on the telemetry at this moment. 2. Acute hypoxic respiratory failure secondary to pneumonia. At this moment, the patient's breathing status is stable with 4 liters nasal cannula. She is on IV antibiotic, which are managed by her primary care doctor and pulmonologists. 3. Acute on chronic diastolic heart failure. The patient's BNP on 07/10 was 1375.4. The patient has received Lasix 40 mg p.o. daily. The patient's condition is stable with the current medication. We would like to continue to monitor. She is on lisinopril 20 mg once a day. 4. Hypertension. The patient's blood pressure is stable with the current medication. We would like to adjust the patient's medication as appropriate. 5. End-stage renal disease, which Dr. Oakes is already following this patient for renal function. Her last dialysis was last Wednesday. 6. Present prosthetic heart valve. The patient has a history of bioprosthetic atrial valve replacement in 2015. The patient's echocardiogram shows her bioprosthetic valve is functioning normally. We would like to continue to monitor. 7. Type 2 diabetes. The patient on a.c. and bedtime glucose check, which is managed by patient's primary care doctors. 8. Generalized weakness. The patient complains of generalized weakness since the patient was hospitalized in 02/2017. Although she has exercised with physical therapist at home since she was discharged, the patient's condition have not improved. I would like to go ahead to order a physical therapist evaluation and a treatment for this patient to increase her strength. Thank you very much for allowing the Cardiology service to participate in the care of this patient. We will follow along with the patient's care team and make further recommendations as appropriate. SEAN
[2017-07-12] MEDS: Insulin Regular 300 UNITS/3 ML VIAL SC PRN (16:49)
[2017-07-12] MEDS: Latanoprost 0.005% Ophth Soln 2.5 ml Bottle EA EYE SCH (20:33)
[2017-07-12] MEDS: Atorvastatin Calcium 10 MG TAB PO SCH (20:33)
--- NOTE | 2017-07-12 22:20 | CON ---
ADDENDUM DATE OF CONSULTATION: 07/12/2017 Please refer to the notes already dictated by the nurse practitioner, Ashley. INDICATION FOR CONSULTATION: This is a very pleasant 87-year-old female that I have followed for the last year or so. She recently moved back to this area. HISTORY OF PRESENT ILLNESS: This is a very pleasant 87-year-old female who has recently been found t o have end-stage renal disease, and has been placed on dialysis. She has become weak in the last sev eral months and she has been transferred here. She has noticed some increasing shortness of breath f or the last week and was diagnosed on admission with pneumonia. She also was noted to have atrial fi brillation with rapid ventricular response. We are being asked to see her for the atrial fibrillatio n. She did receive some amiodarone and then converted back to sinus rhythm, which she remains in sin us rhythm and she is feeling okay this afternoon when she is being seen in consultation. She has had no history of significant arrhythmias in the past that I am aware of. She does have a bioprosthetic aortic valve and has a history of diastolic dysfunction. Her last echocardiogram showed an ejection fraction of 50% to 60%. There is no history of coronary artery disease that I am aware of. She du s have multiple other medical problems including her end-stage renal disease, which was due to lupus nephritis. She has a history of hypertension, dyslipidemia as well as her diabetes and she also has diastolic heart failure. Past medical history, social history, family history, please refer to the notes dictated. ALLERGIES: She has allergies to HYDRALAZINE. MEDICATIONS: Please refer to the notes already dictated. REVIEW OF SYSTEMS: Please refer to the notes already dictated. PHYSICAL EXAMINATION: GENERAL: Reveals a very pleasant, elderly female who is in no acute distress at this time. However, O2 saturation did drop into the 87% to 88% just while she is having a conversation with me. VITAL SIGNS: Her blood pressure is 144/68, heart rate is in the 70s, it shows a sinus rhythm. She i s afebrile. HEENT: Shows the head to be normocephalic and atraumatic. Carotid pulses are present. I did not he ar any significant bruits. CHEST: Has decreased breath sounds bilaterally and she has significant coarse rales in the left side , it is rhonchi. CARDIAC: Reveals regular rate and rhythm at this time. There were no significant murmurs, heaves, t hrills, bruits, or rubs noted. ABDOMEN: Shows abdomen to be soft and nontender. Positive bowel sounds are present. EXTREMITIES: Showed no clubbing, cyanosis, or edema. Pedal pulses are present. NEUROLOGIC: The patient appears to be intact at this time. She is in the bed, she did not get out o f the bed for any further evaluation. Her EKG shows a sinus rhythm without any acute changes. LABORATORY DATA: Please refer to the notes dictated. Her hemoglobin was 10.6 and WBC of 19.2. IMPRESSION: 1. As noted above, she has atrial fibrillation for which we will continue the amiodarone, we may nee d to eventually change this over. She is also on Eliquis, we will continue this for now. 2. End-stage renal disease for which she is on dialysis. Her BNP was elevated, but some of this was due to diastolic heart failure, but this would be assisted by the dialysis certainly. 3. Respiratory failure due to pneumonia. 4. Hypertension. This is better and stable at this time. 5. Type 2 diabetes. This needs to be dealt with by the primary care service. 6. Overall deconditioning and generalized weakness. The patient is considering moving into an [facility] living facility and then most likely, we will continue on and eventually end up in a halfway due to her inability to take care of herself. At this time, the cardiac status other than the episo de of atrial fibrillation appears to be stable.
[2017-07-13 05:20] LABS: Anion Gap 19 mmol/L (10-20); BUN (Urea Nitrogen) 83 mg/dL (9.8-20.1); Calc. Creatinine Clearance 9 mL/min (70-130); Calcium 11.4 mg/dL (7.8-10.44); Carbon Dioxide 23 mmol/L (23-31); Chloride 96 mmol/L (98-107); Estimated GFR-MDRD 8; Glucose 84 mg/dL (83-110); Potassium 4.4 mmol/L (3.5-5.1); Sodium 134 mmol/L (136-145)
[2017-07-13 05:40] LABS: Band 6 % (5-11); Hemoglobin 10.5 g/dL (12.0-16.0); Lymphocytes 6 % (21-51); MDiff Complete? YES; Mean Corpuscular HGB CONC 30.9 g/dL (32.0-36.0); Monocytes 5 % (0-10); Neutrophil 83 % (42-75); Platelet Count 356 thou/uL (130-400); White Blood Cell (WBC) Count 18.2 thou/uL (4.8-10.8)
--- NOTE | 2017-07-13 08:15 | PRG ---
DATE OF SERVICE: 07/12/2017 SUBJECTIVE: Ms. 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 Over the last sever al months the patient received a course of IV Rituximab. However, in spite of this medication the lydia kovacs's renal function remain unimproved. She still remains dialysis dependent. She was admitted fo r shortness of breath. Subsequent evaluation showed that the patient has an underlying pneumonia to explain her shortness of breath. This morning she is feeling better. Please note this patient is cu rrently being treated with IV antibiotics. She is currently being dialyzed. I am at the bedside sup ervising her dialysis. PHYSICAL EXAMINATION: VITAL SIGNS: Blood pressure 146/65, heart rate 64, respiratory rate 20, temperature 97.4, pulse ox 1 00%. GENERAL: Awake, alert, comfortable, not in distress. SKIN: Adequate turgor. HEENT: She has pinkish conjunctivae, anicteric sclerae. NECK: No neck mass, no carotid bruits, no JVD. CHEST: No deformities. LUNGS: Decreased breath sounds. HEART: Normal sinus rhythm. No murmur, no gallops, no rubs. ABDOMEN: Globular, soft, nontender, no masses. EXTREMITIES: No edema, no deformities. MEDICATIONS: 07/13/2017 - Reviewed. LABORATORY: 07/13/2017 - White count 18.2, hemoglobin 10.5, sodium 134, potassium 4.4, chloride 96, carbon dioxide 23, BUN 83, creatinine 5.18, calcium noted at 11.4. ASSESSMENT AND PLAN: 1. End-stage renal disease - stable. Continue current maintenance hemodialysis. Fluid removal as t olerated. The patient is noted to be euvolemic. No changes with the current dialysis bath. We will continue her Wednesday, , and Wednesday dialysis. 2. Mild. hypercalcemia. We will continue to observe. 3. Pneumonia on IV antibiotics. 4. As previously mention biopsy showed Pauci-immune glomerulonephritis. Status post Rituximab treat ment by a central office technician. Overall, continue supportive care.
--- NOTE | 2017-07-13 09:28 | PDOC.CTH ---
<Ashley Trevino - Last Filed: 07/13/17 14:00> Cardiology Progress Note - Subjective The pt seen and examined. No overnight events. No cardiac complaints. She stated she can breath better today with 3LNC. She is undergoing HD at this moment - Objective Vital Signs Temp Pulse Resp BP Pulse Ox 07/13/17 04:00 97.8 F 64 20 146/65 H 100 07/13/17 03:40 99 07/13/17 00:00 72 22 H 122/65 100 07/12/17 23:54 74 18 98 Weight 153 lb 4.8 oz 07/12/17 07/13/17 07/14/17 06:59 06:59 06:59 Intake Total 2039.6 2302.6 Output Total 100 250 Balance 1939.6 2052.6 - Physical Examination General/Neuro: alert & oriented x3 Neck: no JVD present Lungs: other: (diminished at bases) Heart: RRR Abdomen: soft Extremities: other: (No edemas) - Telemetry Telemetry Rhythm: SR w/ PACs - Labs Result Diagrams: 07/13/17 04:31 07/13/17 04:31 Troponin/CKMB CK-MB (CK-2) 3.5 ng/mL (0-6.6) 07/10/17 09:13 Troponin I 0.204 ng/mL (< 0.028) H 07/10/17 09:13 - Assessment/Plan 1. New onset of Afib with RVR - remain SR since 07/12/17 with Amiodarone drip; Change Amiodarone PO 400mg BID for 1wk and change to 200mg BID. 2. Acute resp. failure 2ndary to PNA - improving with IV antibiotics; managed by PCP/Gold Nib Grinder 3. HTN - stable with current medication; cont. monitor 4. CKD with HD - undergoing HD at this moment; S/p IV Rituximab tx by silver solution mixer managed by call center specialist 5. DM type 2 - on ACHS BG check; managed by PCP 6. Hyperlipidemia - on statin 7. Chronic diastolic HF - stable 8. Hx of AVR with bioprosthetic valve in 2016 - 9. Generalized weakness - the pt reported she feels better today MAR reviewed Review of Systems - Review of Systems Constitutional: reports: no symptoms reported EENTM: reports: no symptoms reported Respiratory: reports: see HPI Cardiac (ROS): reports: no symptoms reported ABD/GI: reports: no symptoms reported : reports: no symptoms reported <Bigg Castillo - Last Filed: 07/13/17 18:00> Cardiology Progress Note - Objective Vital Signs Temp Pulse Pulse Resp BP BP BP 07/13/17 15:00 98.2 F 83 24 H 139/71 07/13/17 14:00 70 131/66 07/13/17 13:41 07/13/17 13:39 72 16 07/13/17 13:00 69 131/66 07/13/17 12:00 81 20 117/66 07/13/17 11:19 82 125/71 07/13/17 11:00 98.4 F 90 24 H 07/13/17 10:43 90 07/13/17 10:42 144/60 H 07/13/17 10:29 98.4 F 90 24 H 144/60 H Pulse Ox Pulse Ox 07/13/17 15:00 96 07/13/17 14:00 07/13/17 13:41 99 07/13/17 13:39 99 07/13/17 13:00 07/13/17 12:00 98 07/13/17 11:19 89 L 07/13/17 11:00 94 L 07/13/17 10:43 07/13/17 10:42 07/13/17 10:29 94 L Weight 153 lb 4.8 oz 07/12/17 07/13/17 07/14/17 06:59 06:59 06:59 Intake Total 2039.6 2302.6 904 Output Total 397 963 6008 Balance 1939.6 2052.6 -1696 - Labs Result Diagrams: 07/13/17 04:31 07/13/17 04:31 Troponin/CKMB CK-MB (CK-2) 3.5 ng/mL (0-6.6) 07/10/17 09:13 Troponin I 0.204 ng/mL (< 0.028) H 07/10/17 09:13 - Assessment/Plan Pt. seen and eval. by me. I agree with the A/P by the STAGECRAFT PROFESSOR. She is feeling a little better today but is fatigued after dialysis.She remains in NSR. Change amiodarone from IV to po.
[2017-07-13] MEDS: Carvedilol 6.25 MG TAB PO SCH ×2 (10:42→21:27)
[2017-07-13] MEDS: predniSONE 20 MG TAB PO SCH (10:43)
[2017-07-13] MEDS: Lisinopril 20 MG TAB PO SCH (10:43)
[2017-07-13] MEDS: NIFEdipine XL 30 MG TAB PO SCH ×2 (10:43→21:27)
[2017-07-13] MEDS: Apixaban 5 MG TAB PO SCH ×2 (10:43→21:26)
[2017-07-13] MEDS: Sevelamer Carbonate 800 MG TAB PO SCH ×3 (10:43→17:16)
[2017-07-13] MEDS: cefTRIAXone\\ROCEPHIN 1 GM, Syringe 0.4 ML in Sterile Water 9.6 ML SLOW IVP SCH (10:49)
[2017-07-13] MEDS: Azithromycin 500 MG in Sodium Chloride 0.9% 250 ML 250 ML IVPB SCH (10:54)
[2017-07-13] MEDS: Amiodarone HCl 450 MG, Admixture Fee 1 EACH in Dextrose 5% in Water 250 ML IVPB SCH (12:05)
--- NOTE | 2017-07-13 14:15 | PRG ---
DATE OF SERVICE: 07/13/2017 HISTORY OF PRESENT ILLNESS: The patient states she successfully underwent hemodialysis this morning, feeling very fatigued afterwards. Physical therapy evaluation pending this afternoon. The patient currently living with nephew; however, she has come to conclusion that she will likely need additiona l assistance going forward with her continued deteriorating health, looking at [facility] currently f or assisted living options for additional help. However, acutely inpatient patient required re-stabi lization of amiodarone drip, currently last telemetry being in normal sinus rhythm. The patient brianne ins stable on 4 liters of nasal cannula when resting; however, when she coughs she de-saturates down into the low 80s, quickly rebounds. She states she is not producing any phlegm production at this po int in time despite the aggressive efforts to cough. She has not ambulated much while in the unit. Feels she would be amicable to a skilled placement as needed for continued rehabilitation and strengt h regain prior to discharge if needed. PHYSICAL EXAMINATION: VITAL SIGNS: Review of vital signs, temperature of 98.4, pulse of 81, respiratory rate of 20, oxygen saturation of 98% on 4 liters nasal cannula, oxygen saturation on 2 liters nasal cannula earlier tod ay at 89, blood pressure 117/66. GENERAL: The patient is alert and oriented, in no acute distress. HEENT: Head is normocephalic, atraumatic. Extraocular movements are intact. Sclerae are clear. Or al mucosa is moist. NECK: Supple. HEART: Regular rate and rhythm at the time of exam. LUNGS: With coarse breath sounds bilaterally with rhonchi, no wheezes, in left lower base. ABDOMEN: Soft, nontender, positive bowel sounds throughout, slightly bloated. EXTREMITIES: No lower extremity edema or cyanosis. NEUROLOGIC: The patient is alert and oriented x3, no focal deficits. Speech is normal. LABORATORY DATA: This a.m., sodium 134, potassium of 4.4, CO2 of 23, creatinine pre-hemodialysis 5.1 8, blood glucose last 12 hours range of 212-82. ASSESSMENT AND PLAN: 1. Lobar pneumonia with acute respiratory failure. Continuing IV antibiotics, azithromycin and Roce phin. Pulmonology has been following. The patient has had good benefit from DuoNeb. However, has n ot had much productive sputum. We will add Mucinex and adjust physical therapy as able on schedule w ith respiratory therapy. 2. 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 The patient continued on 40 mg of prednisone daily. 3. End-stage renal disease, on hemodialysis. Continued on dialysis program of Wednesday, , an d Wednesday, underwent successful hemodialysis this a.m., managed by Nephrology. 4. Atrial fibrillation with rapid ventricular response, rapid ventricular response component resolve d. Patient in sinus rhythm per rhythm strips after amiodarone drip reinitiated, management per Cardi ology. We will look forward to possible p.o. intervention for discharge planning. 5. Prosthetic heart valve. Continued on Eliquis. 6. Diabetes, type 2. Continue on sliding scale insulin and glipizide. The patient with some 80s bl ood glucose with no symptoms. We will continue with current regimen, especially after hemodialysis a nd monitor afterwards over the next 24 hours. Otherwise, we will hold glipizide. DISPOSITION: Pending Physical therapy evaluation with adding case management consultation as patient is having very slow progress with lungs, may require significant LTACH placement in the interim whil e she improves her strength and lung function. Possible transfer to telemetry today.
--- NOTE | 2017-07-13 16:44 | PRG ---
DATE OF SERVICE: 07/12/2017 SERVICE: Pulmonary Medicine. INTERVAL HISTORY: The patient is doing well from a respiratory standpoint. She denies any current f catherine, chills, nausea, vomiting or chest discomfort. She looks less toxic today. She just went down for a chest x-ray and I have reviewed that with her. PHYSICAL EXAMINATION: VITAL SIGNS: Afebrile, pulse 134/69, respirations 20, saturation 100% on 4 liters nasal cannula. GENERAL: Patient is awake, alert, no apparent distress. LUNGS: Excellent air entry. There is no prolonged expiratory phase. Rhonchi are present, but clear with cough. No crackles. HEART: Normal rate, regular. ABDOMEN: Soft, nontender, nondistended. Bowel sounds are positive. MUSCULOSKELETAL: No cyanosis or clubbing. No pitting in the bilateral lower extremities. NEUROLOGIC: Grossly nonfocal. LABORATORY DATA: WBC 19.2, hemoglobin 10.6, platelets 376,000. Neutrophil count is 64% with 20% ban ds. INR 1.9. Creatinine 1.5, carbon creatinine 4.72, BUN 60. Basic metabolic profile is otherwise unremarkable. Calcium 11.9. Blood cultures x2, influenza, respiratory virus panel, urine culture ar e all negative to date. IMAGING: Chest x-ray demonstrates a clear lower lobe infiltrate. ASSESSMENT: 1. Acute hypoxic respiratory failure. 2. End-stage renal disease. 3. Severe sepsis. 4. Healthcare-associated pneumonia. 5. History of vasculitis without active disease. PLAN: The chest x-ray today on the lateral showed a clear infiltrate in the left lower lobe. Vascul itis are multifocal. As such, I am less inclined to believe that we are dealing with a vasculitic pr ocess. I will leave everything where it is for the time being and will allow her to defervesce. If she continues to look better tomorrow, we will discontinue her steroids back to home doses. If she l ooks good tomorrow morning, transition to the floor.
--- NOTE | 2017-07-13 16:51 | PRG ---
DATE OF SERVICE: 07/13/2017 SERVICE: Pulmonary Medicine. INTERVAL HISTORY: The patient is really doing quite well from a respiratory standpoint. She is elenita thing very comfortably this morning. She went to dialysis today and has returned in good health. Tiarra dee has no complaints of shortness of breath or chest discomfort. She is clearing her secretions comfo rtably with cough. PHYSICAL EXAMINATION: VITAL SIGNS: Afebrile, pulse 70, blood pressure 131/66, respirations 24, saturation 96% on 4 liters nasal cannula. GENERAL: The patient is awake and alert, in no apparent distress. LUNGS: Decent air entry. There are no crackles, wheezing or rhonchi appreciated. HEART: Normal rate, regular. ABDOMEN: Soft, nontender, nondistended. Bowel sounds are positive. MUSCULOSKELETAL: No cyanosis or clubbing. There is trace to 1+ pitting in the bilateral lower extre mities. NEUROLOGIC: Grossly nonfocal. LABORATORY DATA: WBC 18.2 and gently down trending. There has been a significant improvement in the band count down to 6%. Hemoglobin and platelets are stable. Basic metabolic profile is essentially stable and unremarkable. Currently pending. ASSESSMENT: 1. Acute hypoxic respiratory failure. 2. Healthcare-associated pneumonia. 3. History of vasculitis (MPO positive). 4. Severe sepsis, resolving. 5. End-stage renal disease. PLAN: I will deescalate the patient's steroids to her home doses. She will transition to the floor. She will require a 7-day course of antibiotic. She will need a repeat chest x-ray in the outpatien t setting in 4-6 weeks to verify the infiltrate has resolved. Pulmonary Critical Care will continue to follow for the time being.
[2017-07-13] MEDS ORDERED: Polyethylene Glycol 3350 17 GM Packet PO SCH (20:00)
[2017-07-13] MEDS: Amiodarone 200 MG TAB PO SCH (21:26)
[2017-07-13] MEDS: guaiFENesin/DM ER PO SCH (21:27)
[2017-07-13] MEDS: Atorvastatin Calcium 10 MG TAB PO SCH (21:27)
[2017-07-13] MEDS: Insulin Regular 300 UNITS/3 ML VIAL SC PRN (21:27)
[2017-07-13] MEDS: Latanoprost 0.005% Ophth Soln 2.5 ml Bottle EA EYE SCH (21:28)
[2017-07-14 06:23] LABS: Band 7 % (5-11); Hemoglobin 10.1 g/dL (12.0-16.0); Lymphocytes 4 % (21-51); MDiff Complete? YES; Mean Corpuscular HGB CONC 31.2 g/dL (32.0-36.0); Mean Corpuscular Hemoglobin 31.2 pg (27.0-31.0); Mean Platelet Volume 7.1 fL (7.4-10.4); Metamyelocyte 1 % (0-0); Monocytes 7 % (0-10); Myelocyte 1 % (0-0); Neutrophil 80 % (42-75); Platelet Count 341 thou/uL (130-400); RBC Distribution Width 13.6 % (11.5-14.5); Red Blood Cell (RBC) Count 3.24 mill/uL (4.20-5.40); White Blood Cell (WBC) Count 13.6 thou/uL (4.8-10.8)
--- NOTE | 2017-07-14 09:09 | PRG ---
DATE OF SERVICE: 07/14/2017 SUBJECTIVE: Ms. 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 She was subsequently found to have pneumonia. She has been treated with antibiotics at the present time. Her breathing is much better today. PHYSICAL EXAMINATION: VITAL SIGNS: Blood pressure is 108/62, heart rate 74, respiratory rate 14, temperature 98.1, pulse o x 98%. GENERAL: Awake, alert, comfortable, not in distress. SKIN: Adequate turgor. HEENT: Pinkish conjunctiva. Anicteric sclerae. NECK: No neck mass, no carotid bruits, no JVD. CHEST: No deformities. LUNGS: Decreased breath sounds. HEART: Normal sinus rhythm. No murmur, no gallops or rubs. ABDOMEN: Globular, soft, nontender. No masses. EXTREMITIES: No edema, no deformities. MEDICATIONS: 07/14/2017 - Reviewed. LABORATORY: 07/14/2017 - White count 13.6, hemoglobin 10.1. 07/13/2017 - Sodium 134, potassium 4.4, chloride 96, carbon dioxide 23, BUN 83, creatinine 5.18, calc ium 11.4. ASSESSMENT AND PLAN: 1. End-stage renal disease, stable. Continue Wednesday, , and Wednesday hemodialysis regimen. No changes to be made with the current dialysis regimen. Again, fluid removal only as tolerated. 2. Shortness of breath - secondary to pneumonia, currently on IV antibiotics. 3. Pneumonia, on IV antibiotics. 4. Mild hypercalcemia. Continue to observe. Recheck basic met and CBC in a.m.
[2017-07-14] MEDS: Carvedilol 6.25 MG TAB PO SCH ×2 (10:11→22:13)
[2017-07-14] MEDS: predniSONE 20 MG TAB PO SCH (10:13)
[2017-07-14] MEDS: Sevelamer Carbonate 800 MG TAB PO SCH ×2 (10:18→10:21)
[2017-07-14] MEDS: Apixaban 5 MG TAB PO SCH ×2 (10:18→22:12)
[2017-07-14] MEDS: Amiodarone 200 MG TAB PO SCH ×2 (10:18→22:12)
[2017-07-14] MEDS: NIFEdipine XL 30 MG TAB PO SCH ×2 (10:18→22:12)
[2017-07-14] MEDS: guaiFENesin/DM ER PO SCH ×2 (10:19→22:12)
[2017-07-14] MEDS: Lisinopril 20 MG TAB PO SCH (10:19)
[2017-07-14] MEDS: cefTRIAXone\\ROCEPHIN 1 GM, Syringe 0.4 ML in Sterile Water 9.6 ML SLOW IVP SCH (10:25)
[2017-07-14] MEDS: Azithromycin 500 MG in Sodium Chloride 0.9% 250 ML 250 ML IVPB SCH (10:27)
--- NOTE | 2017-07-14 10:30 | PDOC.CTH ---
<Ashley Trevino - Last Filed: 07/14/17 10:28> Cardiology Progress Note - Subjective The pt seen and examined. No overnight events. No cardiac complaints. The pt reported that she was at bedside with minimal SOB. - Objective Vital Signs Temp Pulse Resp BP BP Pulse Ox 07/14/17 10:19 122/68 07/14/17 10:18 82 122/68 07/14/17 10:11 122/68 07/14/17 04:00 98.1 F 74 14 108/62 98 07/14/17 00:25 63 18 100 07/14/17 00:00 98.3 F 82 22 H 159/71 H 98 Weight 152 lb 4.8 oz 07/13/17 07/14/17 07/15/17 06:59 06:59 06:59 Intake Total 2302.6 2164 Output Total 250 2600 Balance 2052.6 -436 - Physical Examination General/Neuro: alert & oriented x3 Neck: no JVD present Lungs: other: (coases and diminished at bases) Heart: RRR Abdomen: soft Extremities: other: (No edema) - Telemetry Telemetry Rhythm: SR - Labs Result Diagrams: 07/14/17 04:39 07/13/17 04:31 Troponin/CKMB CK-MB (CK-2) 3.5 ng/mL (0-6.6) 07/10/17 09:13 Troponin I 0.204 ng/mL (< 0.028) H 07/10/17 09:13 - Assessment/Plan 1. New onset of Afib with RVR - remain SR with Amiodarone PO 400mg BID for 1wk and change to 200mg BID. 2. Acute resp. failure 2ndary to PNA - improving with IV antibiotics; managed by PCP/Baker Chef 3. HTN - stable with current medication; cont. monitor 4. CKD with HD on , , Wed - S/p IV Rituximab tx by mission planner; managed by manager corporate communications 5. DM type 2 - on ACHS BG check; managed by PCP 6. Hyperlipidemia - on statin 7. Chronic diastolic HF - stable 8. Hx of AVR with bioprosthetic valve in 2016 - cont. monitor 9. Generalized weakness - the pt reported she feels better today MAR reviewed Review of Systems - Review of Systems Constitutional: reports: see HPI EENTM: reports: no symptoms reported Respiratory: reports: see HPI Cardiac (ROS): reports: no symptoms reported ABD/GI: reports: no symptoms reported : reports: no symptoms reported <Bigg Castillo - Last Filed: 07/14/17 16:19> Cardiology Progress Note - Objective Vital Signs Temp Pulse Resp BP BP BP BP 07/14/17 11:55 97.2 F L 75 18 07/14/17 10:19 122/68 07/14/17 10:18 82 122/68 07/14/17 10:11 122/68 07/14/17 09:37 137/75 161/65 H 07/14/17 08:00 97.4 F L 82 18 122/68 BP Pulse Ox 07/14/17 11:55 118/63 100 07/14/17 10:19 07/14/17 10:18 07/14/17 10:11 07/14/17 09:37 07/14/17 08:00 100 Weight 152 lb 4.8 oz 07/13/17 07/14/17 07/15/17 06:59 06:59 06:59 Intake Total 2302.6 2164 720 Output Total 250 2600 Balance 2052.6 -436 720 - Labs Result Diagrams: 07/14/17 04:39 07/13/17 04:31 Troponin/CKMB CK-MB (CK-2) 3.5 ng/mL (0-6.6) 07/10/17 09:13 Troponin I 0.204 ng/mL (< 0.028) H 07/10/17 09:13 - Assessment/Plan Pt. seen and eval. She is feeling much better today. I agree with the A/P by the COMMUNITY OUTREACH COORDINATOR. Chest: expiratory wheeze. RRR.
--- NOTE | 2017-07-14 11:35 | PQF ---
CLINICAL DOCUMENTATION IMPROVEMENT CLARIFICATION FORM: ICD-10 Updated PLEASE DO AN ADDENDUM TO THE PROGRESS NOTE WITH ANY DOCUMENTATION UPDATES OR ADDITIONS AND CARRY THROUGH TO DC SUMMARY. THANK YOU. DATE: 07/14/17 ATTN: Dr. Jerry Robles Please exercise your independent, professional judgment in responding to the clarification form. Clinical indicators are provided on the bottom of this form for your review Please check appropriate box(s): [x ] Sepsis due to: (Pna, UTI, gangrenous gall bladder, etc.) PNA [ ] SIRS due to non-infectious process (please specify etiology) [ ] with organ dysfunction [ ] without organ dysfunction [ ] Severe sepsis with acute organ dysfunction of: (Examples: respiratory failure, encephalopathy, acute kidney failure, other) [ ] Other diagnosis [ ] Unable to determine In addition, please specify: Present on Admission (POA): [x ] Yes [ ] No [ ] Unable to determine For continuity of documentation, please document condition throughout progress notes and discharge summary. Thank You. CLINICAL INDICATORS - SIGNS / SYMPTOMS / LABS ER RECORD: PULSE 93, RESP 29, O2 SAT 83 ON ROOM AIR DX: RESPIRATORY DISTRESS, CKD, HOSPITAL AQUIRED PNEUMONIA, SEPSIS H&P: WHITE COUNT 13.9. LACTIC ACID 2.3 PULM. PN 07/13: HEALTHCARE-ASSOCIATED PNEUMONIA SEVERE SEPSIS, RESOLVING RISKS: H&P: ESRD. DIABETES. RECEIVES DIALYSIS ON REGULAR BASIS. PULMONOLOGY CONSULT: ACUTE HYPOXIC RESP. FAILURE. VASCULITIS, SIRS. TREATMENT: ADMIT INTERMEDIATE CARE. CPOE 07/10: RESP: CPAP/BIPAP CONTINUOUS ORDER 07/10: ROCEPHIN 1 GM CPOE 07/10: ZITHROMAX 500MG IV Thank you, Vicki (This form is maintained as a part of the permanent medical record) 2014 [employer] All Rights Reserved Vicki Miller RN, BSN [email or web address] Office: [phone] [facility]
[2017-07-14] MEDS ORDERED: Polyethylene Glycol 3350 17 GM Packet PO PRN (13:17)
--- NOTE | 2017-07-14 14:29 | PRG ---
DATE OF SERVICE: 07/14/2017 HISTORY OF PRESENT ILLNESS: The patient states that she worked with physical therapy in a much impro fly capacity this morning with improved breathing without shortness of breath and energy. However, s he only made it 120 steps with assistance on both sides with use of IV pole as a makeshift cane. She and nephew at bedside whom she lives with verbalized understanding about likely SNIF placement and a gree. Case Management consultation pending this p.m. VITAL SIGNS: Temperature of 97.2, pulse of 75, respiratory rate of 18, oxygen saturation 100% on 3 l iters nasal cannula, blood pressure 118/63. LABORATORY DATA: White blood cell count trending down to 13.7, hemoglobin 10.1, platelet count of 34 1, glucoses in the last 12 hours low of 63, high of 226. PHYSICAL EXAMINATION: GENERAL: The patient is alert and oriented, no acute distress. HEENT: Head is normocephalic, atraumatic. Extraocular movements are intact. Sclerae are clear. Or al mucosa is moist. NECK: Supple. Nasal cannula in place. HEART: Regular rate and rhythm. No murmurs auscultated. LUNGS: With coarse breath sounds bilaterally, diminished in the bases, left greater than right. ABDOMEN: Soft, nontender, positive bowel sounds throughout. EXTREMITIES: Lower extremities without cyanosis or edema. NEUROLOGIC: The patient is alert and oriented x3, no focal deficits. Normal speech. ASSESSMENT AND PLAN: 1. Left lobar pneumonia with acute respiratory failure, stabilized with IV antibiotics and on oxygen with nasal cannula. Documentation clarifications sepsis present on admission secondary to lobar pne umonia, currently resolved, per Pulmonology likely 1 more day of IV antibiotics. The patient is at d ay 4 of 5 of azithromycin IV, likely oral candidate tomorrow per Pulmonology recommendations for 7 da ys of antibiotics with follow up x-ray on an outpatient basis in several weeks. We will push forward with this plan. 2. Bella's vasculitis, pANCA currently still pending. It does not appear to be affecting the olivia ent's lungs at this point in time. 3. End-stage renal disease on hemodialysis, managed by Nephrology per outpatient infusion with Rheum atology. Recommend follow up on an outpatient basis once well healed. 4. Atrial fibrillation with rapid ventricular response is currently resolved. Patient back in sinus rhythm following amiodarone drip. Patient has been transitioned to amiodarone by mouth. 5. Prosthetic heart valve, continuation of Eliquis at this point in time and for paroxysmal atrial f ibrillation as above. 6. Diabetes type 2 with blood sugars reaching down in the 60s, discontinuing the glipizide. Continu e sliding scale, Accu-Cheks and insulin coverage. DISPOSITION: Recommendations for SNIF placement. Case Management consultation is pending. Continua tion of physical therapy and antibiotics. Likely transitioning to oral in the next 24 hours. The pa fermín continues to need oxygen and physical therapy support, will continue to need dialysis, currentl y scheduled for every Wednesday, , and Wednesday. We will follow up on case management rene ospina.
[2017-07-14 16:15] LABS: Cytoplasmic (C-ANCA) <1:20 titer (Neg:<1:20); Myeloperoxidase AutoAbs <9.0 U/mL (0.0-9.0); Perinuclear (P-ANCA) 1:20 titer (Neg:<1:20); Proteinase-3 AutoAbs Less than 3.5 U/mL (0.0-3.5)
[2017-07-14] MEDS: Atorvastatin Calcium 10 MG TAB PO SCH (22:12)
[2017-07-14] MEDS: Latanoprost 0.005% Ophth Soln 2.5 ml Bottle EA EYE SCH (22:13)
--- NOTE | 2017-07-14 22:46 | PRG ---
DATE OF SERVICE: 07/14/2017 SERVICE: Pulmonary Medicine. INTERVAL HISTORY: The patient is doing really quite well from a respiratory standpoint. She has bee n weaned down to room air. She currently denies any shortness of breath, fevers, chills, nausea, vom iting, or diarrhea. Her strength has improved and she was up walking in the hallways. Outside of [facility], there has been no interval change in her condition. PHYSICAL EXAMINATION: VITAL SIGNS: Afebrile, pulse 74, blood pressure 128/66, respirations 18, saturation 95% on room air. GENERAL: The patient is awake and alert, in no apparent distress. LUNGS: Excellent air entry. Dependent crackles are present. HEART: Normal rate, regular. ABDOMEN: Soft, nontender, nondistended. Bowel sounds are positive. MUSCULOSKELETAL: No cyanosis or clubbing. No pitting in the bilateral lower extremities. NEUROLOGIC: Grossly nonfocal. LABORATORY DATA: WBC 13.6, hemoglobin 10.1, platelets 341,000. RENE is 1:20. MPO is below assay motta it. Respiratory virus panel is negative. Urine culture and blood culture x2 are unremarkable. ASSESSMENT: 1. Acute hypoxic respiratory failure, resolved. 2. Healthcare-associated pneumonia. 3. History of vasculitis, currently not active. 4. Severe sepsis, resolving. 5. End-stage renal disease. PLAN: The patient can complete a 7-day course of antibiotics. At this point, she is stable for abarca sition out of the hospital. She has no further requirements for inpatient Pulmonary or Critical Care opinion. A repeat chest x-ray will need to be done in 4-6 weeks to verify if the infiltrate has res olved. Please call with additional questions or concerns moving forward. The patient will need to f ocus on mobility.
[2017-07-15 05:31] LABS: Anion Gap 15 mmol/L (10-20); BUN (Urea Nitrogen) 74 mg/dL (9.8-20.1); Calc. Creatinine Clearance 9 mL/min (70-130); Calcium 11.3 mg/dL (7.8-10.44); Carbon Dioxide 28 mmol/L (23-31); Chloride 95 mmol/L (98-107); Estimated GFR-MDRD 8; Glucose 112 mg/dL (83-110); Potassium 4.5 mmol/L (3.5-5.1); Sodium 133 mmol/L (136-145)
[2017-07-15 06:02] LABS: Band 5 % (5-11); Hemoglobin 10.2 g/dL (12.0-16.0); Lymphocytes 4 % (21-51); MDiff Complete? YES; Mean Corpuscular HGB CONC 31.3 g/dL (32.0-36.0); Mean Corpuscular Hemoglobin 31.1 pg (27.0-31.0); Mean Corpuscular Volume 99.4 fl (81.0-99.0); Mean Platelet Volume 7.1 fL (7.4-10.4); Metamyelocyte 2 % (0-0); Monocytes 3 % (0-10); Neutrophil 86 % (42-75); PLT Morphology Comment Appears Adequate; Platelet Count 332 thou/uL (130-400); RBC Distribution Width 13.6 % (11.5-14.5); Red Blood Cell (RBC) Count 3.27 mill/uL (4.20-5.40)
[2017-07-15] MEDS ORDERED: Epoetin (ESRD) 20,000 UNITS/ML SC SCH (08:15)
--- NOTE | 2017-07-15 08:28 | PRG ---
DATE OF SERVICE: 07/15/2017 SUBJECTIVE: Ms. Curiel is an 87-year-old white female who was admitted for pneumonia. Currently on antibiotics. She is currently at the dialysis, I am supervising her at bedside. She does complain of abdominal fullness. Denies any fever, shortness of breath or chest pain. OBJECTIVE: VITAL SIGNS: Blood pressure 138/65, heart rate 73, respiratory rate 18, pulse ox 92%. GENERAL: Awake, supine, comfortable, not in distress. SKIN: Adequate turgor. HEENT: Pinkish conjunctiva, anicteric sclerae. NECK: No neck mass, no carotid bruits, no JVD. CHEST: No deformities. LUNGS: Decreased breath sounds. HEART: Normal sinus rhythm. No murmur, no gallops, no rubs. ABDOMEN: Globular, soft, nontender, no masses. EXTREMITIES: No edema, no deformities. MEDICATIONS: 07/15/2017 - Reviewed. LABORATORY: 07/15/2017 - White count 15, hemoglobin 10.2. Sodium 133, potassium 4.5, chloride 95, c arbon dioxide 28, BUN 74, creatinine 4.9, glucose 112, calcium is 11.3. ASSESSMENT AND PLAN: 1. End-stage renal disease, stable. Continue current hemodialysis regimen of Wednesday, , and Wednesday. Due to the patient complaining of being uncomfortable with the dialysis - she was nonspec ific. I will shorten the treatment by 30 minutes. 2. Pneumonia - clinically much improved. The patient has been treated with antibiotics. 3. Hypertension, excellent control. Continue current blood pressure meds. 4. Borderline anemia. Start Epogen 7500 units subcu q. week. 5. Mild hypercalcemia. Continue to observe. If needed, we can refer her to Endocrinology in the ne ar future. Please note, calcium was improved from a peak of 11.9 to a most recent value of 11.2. I agree with current management. Recheck base met and CBC in a.m.
[2017-07-15] MEDS: Sevelamer Carbonate 800 MG TAB PO SCH (11:23)
[2017-07-15] MEDS: predniSONE 20 MG TAB PO SCH (11:26)
[2017-07-15] MEDS: guaiFENesin/DM ER PO SCH ×2 (11:26→23:09)
[2017-07-15] MEDS: Apixaban 5 MG TAB PO SCH ×2 (11:26→23:08)
[2017-07-15] MEDS: Lisinopril 20 MG TAB PO SCH (11:27)
[2017-07-15] MEDS: Amiodarone 200 MG TAB PO SCH ×2 (11:27→23:08)
[2017-07-15] MEDS: Carvedilol 6.25 MG TAB PO SCH ×2 (11:27→23:08)
[2017-07-15] MEDS: NIFEdipine XL 30 MG TAB PO SCH ×2 (11:28→23:08)
[2017-07-15] MEDS ORDERED: cefTRIAXone\\ROCEPHIN 1 GM, Syringe 0.4 ML in Sterile Water 9.6 ML SLOW IVP SCH (12:00)
[2017-07-15] MEDS ORDERED: Azithromycin 500 MG in Sodium Chloride 0.9% 250 ML 250 ML IVPB SCH (12:00)
--- NOTE | 2017-07-15 14:30 | PDOC.CTH ---
<Ashley Trevino - Last Filed: 07/15/17 14:29> Cardiology Progress Note - Subjective The pt seen and examined. No overnight events. No cardiac complaints. She feels weak today due to s/p HD today. She is on RA without any distress - Objective Vital Signs Temp Pulse Resp BP BP Pulse Ox 07/15/17 11:46 72 14 100 07/15/17 11:28 78 114/57 L 07/15/17 11:27 114/57 L 07/15/17 11:00 97.2 F L 78 20 134/59 L 100 07/15/17 06:23 73 18 138/65 92 L Weight 152 lb 6.4 oz 07/14/17 07/15/17 07/16/17 06:59 06:59 06:59 Intake Total 2164 1690 Output Total 2600 450 Balance -436 1240 - Physical Examination General/Neuro: alert & oriented x3 Neck: no JVD present Lungs: other: (diminished at bases) Heart: RRR Abdomen: soft Extremities: other: (no edema) - Telemetry Telemetry Rhythm: SR - Labs Result Diagrams: 07/15/17 04:43 07/15/17 04:43 Troponin/CKMB CK-MB (CK-2) 3.5 ng/mL (0-6.6) 07/10/17 09:13 Troponin I 0.204 ng/mL (< 0.028) H 07/10/17 09:13 - Assessment/Plan 1. New onset of Afib with RVR - remain SR with Amiodarone PO 400mg BID for 1wk and change to 200mg BID. 2. Acute resp. failure 2ndary to PNA - stable with IV antibiotics; managed by PCP/Skilled Nursing Professional 3. HTN - stable with current medication; cont. monitor 4. CKD with HD on , , Wed - S/p IV Rituximab tx by administrative assistant front desk; she had HD today;managed by gaming host 5. DM type 2 - on ACHS BG check; managed by PCP 6. Hyperlipidemia - on statin 7. Chronic diastolic HF - stable 8. Hx of AVR with bioprosthetic valve in 2016 - cont. monitor 9. Generalized weakness - the pt reported she feels weak due to s/p HD today MAR reviewed Review of Systems - Review of Systems Constitutional: reports: weakness EENTM: reports: no symptoms reported Respiratory: reports: no symptoms reported Cardiac (ROS): reports: no symptoms reported ABD/GI: reports: no symptoms reported : reports: no symptoms reported Musculoskeletal: reports: no symptoms reported <Bigg Castillo - Last Filed: 07/15/17 17:56> Cardiology Progress Note - Objective Vital Signs Temp Pulse Resp BP BP Pulse Ox 07/15/17 16:08 94 L 07/15/17 15:14 97.9 F 68 18 119/59 L 07/15/17 11:46 72 14 100 07/15/17 11:28 78 114/57 L 07/15/17 11:27 114/57 L 07/15/17 11:00 97.2 F L 78 20 134/59 L 100 07/15/17 06:23 73 18 138/65 92 L Weight 152 lb 6.4 oz 07/14/17 07/15/17 07/16/17 06:59 06:59 06:59 Intake Total 2164 1690 720 Output Total 2600 450 Balance -436 1240 720 - Labs Result Diagrams: 07/15/17 04:43 07/15/17 04:43 Troponin/CKMB CK-MB (CK-2) 3.5 ng/mL (0-6.6) 07/10/17 09:13 Troponin I 0.204 ng/mL (< 0.028) H 07/10/17 09:13 - Assessment/Plan Pt. seen and eval. by me. I agree with the A/P by the RECONNAISSANCE MAN. She continues to have scattered coarse rhonchi but denies any significant SOB. She was very fatigued after her dialysis today. The plan is to transfer her to rehab. tomorrow. Continue amiodarone.
[2017-07-15] MEDS: Amoxicillin/Potassium Clav 500 MG TAB PO SCH (18:32)
[2017-07-15] MEDS: Insulin Regular 300 UNITS/3 ML VIAL SC PRN (19:12)
--- NOTE | 2017-07-15 20:26 | PRG ---
DATE OF SERVICE: 07/15/2017 SERVICE: Pulmonary Medicine. INTERVAL HISTORY: The patient is doing really well from a respiratory standpoint. This morning afte r dialysis, she felt lousy with lack of energy. A couple hours later, she perked up a little bit and had an improving strength. She has gone through this enough to realize that this is really more ass ociated with dialysis. She does feel that she is back into her normal routine. PHYSICAL EXAMINATION: VITAL SIGNS: Afebrile, pulse 68, blood pressure 119/59, respirations 18, saturation 94% on room air. GENERAL: The patient is awake, alert, in no apparent distress. LUNGS: Excellent air entry with no prolonged expiratory phase, wheezing, rhonchi, or crackles. HEART: Normal rate, regular. ABDOMEN: Soft, nontender, nondistended. Bowel sounds are positive. MUSCULOSKELETAL: No cyanosis or clubbing. There is no pitting in the bilateral lower extremities. NEUROLOGIC: Grossly nonfocal. LABORATORY DATA: WBC 15.0, hemoglobin 10.2, platelets 332,000. Creatinine 4.9, BUN 74. Basic metab olic profile is otherwise unremarkable. Calcium is 11.3. ANCA is 1-20 pattern, which is significant ly below prior. Respiratory virus panel is negative. ASSESSMENT: 1. Acute hypoxic respiratory failure, resolved. 2. Healthcare-associated pneumonia. 3. History of vasculitis, currently not active. 4. Severe sepsis, resolving. 5. End-stage renal disease. 6. Leukocytosis, possibly in the setting of volume contraction. PLAN: The patient is doing really quite well from a cardiovascular and respiratory standpoint. She is stable for transition out of the hospital provided we repeat a chest x-ray in 4-6 weeks in the out patient setting to verify the infiltrate resolves. Pulmonary will sign off at this time. Please sissy l with additional questions or concerns.
[2017-07-15] MEDS: Atorvastatin Calcium 10 MG TAB PO SCH (23:08)
[2017-07-15] MEDS: Latanoprost 0.005% Ophth Soln 2.5 ml Bottle EA EYE SCH (23:09)
--- NOTE | 2017-07-16 00:33 | PRG ---
DATE OF SERVICE: 07/15/2017 HISTORY OF PRESENT ILLNESS: The patient has been successfully weaned off oxygen following hemodialys is today. She reports being fatigued for about half a day with improved energy this evening, improve d coughing profile. The patient still remains weak with ambulation and feels as if she would rather spend more time in bed given energy profile. No new complaints. Positive bowel movement today repor mina. The patient has worked with case management and has been successfully accepted to [facility] rehabilitation with pending discharge likely tomorrow. LABORATORY DATA: White blood count of 15.0, hemoglobin 10.2, platelet count of 332. Neutrophils ban ds of 5, improved. Blood glucoses in the last 12 hours low of 68, high of 188. Sodium of 133, potas sium of 4.5, CO2 of 28, creatinine of 4.9. Calcium of 11.3, ANCA pattern of 1:20 titre, ANCA proper less than 1:20 titre, anti myeloperoxidase less than 9.0, atypical pANCA less than 1:20 titre, anti p roteinase 3 less than 3.5. PHYSICAL EXAMINATION: VITAL SIGNS: Temperature 97.9, pulse of 68, respiratory rate of 18, oxygen saturation of 100% on 1 l iter nasal cannula this a.m., 94% on room air this p.m. Blood pressure 119/59. GENERAL: The patient is alert and oriented, no acute distress. HEENT: Normocephalic, atraumatic. Extraocular movements are intact. Sclerae are clear. Oral mucos a is moist. NECK: Supple. HEART: Regular rate and rhythm at time of exam. LUNGS: Clear to auscultation bilaterally. No rubs or wheezes. ABDOMEN: Soft, nontender, positive bowel sounds throughout. EXTREMITIES: Lower extremities without cyanosis or edema. NEUROLOGIC: The patient is alert and oriented x3, no focal deficits. Speech is normal. ASSESSMENT AND PLAN: 1. Healthcare-acquired pneumonia. Plan to transition patient to oral antibiotics and discharge the patient secondary to deconditioning to [facility] inpatient rehabilitation tomorrow morning. We wi ll follow up on chest x-ray on an outpatient basis after patient is discharged. 2. End-stage renal disease on hemodialysis. Continue dialysis every Wednesday, , and Wednesday . 3. Diabetes type 2. The patient is stable on sliding scale insulin with Accu-Cheks a.c. and at bedt uday. 4. Paroxysmal atrial fibrillation. Patient currently in sinus rhythm, stable on oral amiodarone and antihypertensive medications. 5. Prosthetic aortic valve. We will continue on Eliquis at this point in time. DISPOSITION: Discharge tomorrow with inpatient rehabilitation with [facility].
[2017-07-16 05:38] LABS: Anion Gap 13 mmol/L (10-20); BUN (Urea Nitrogen) 48 mg/dL (9.8-20.1); Calc. Creatinine Clearance 12 mL/min (70-130); Carbon Dioxide 29 mmol/L (23-31); Chloride 98 mmol/L (98-107); Estimated GFR-MDRD 11; Glucose 127 mg/dL (83-110); Potassium 4.2 mmol/L (3.5-5.1); Sodium 136 mmol/L (136-145)
[2017-07-16 06:03] LABS: Band 8 % (5-11); Lymphocytes 9 % (21-51); MDiff Complete? YES; Macrocytosis SLIGHT = 6-15 cells (100X) (0-5/hpf); Mean Corpuscular HGB CONC 31.7 g/dL (32.0-36.0); Mean Corpuscular Hemoglobin 31.7 pg (27.0-31.0); Mean Corpuscular Volume 99.9 fl (81.0-99.0); Mean Platelet Volume 7.2 fL (7.4-10.4); Metamyelocyte 3 % (0-0); Monocytes 7 % (0-10); Myelocyte 1 % (0-0); Neutrophil 72 % (42-75); PLT Morphology Comment Appears Adequate; Platelet Count 316 thou/uL (130-400); RBC Distribution Width 13.6 % (11.5-14.5); Red Blood Cell (RBC) Count 3.15 mill/uL (4.20-5.40); White Blood Cell (WBC) Count 14.9 thou/uL (4.8-10.8)
[2017-07-16] MEDS: predniSONE 20 MG TAB PO SCH (08:27)
[2017-07-16] MEDS: Sevelamer Carbonate 800 MG TAB PO SCH ×3 (08:27→18:03)
[2017-07-16] MEDS: Lisinopril 20 MG TAB PO SCH (08:28)
[2017-07-16] MEDS: Carvedilol 6.25 MG TAB PO SCH ×2 (08:28→21:42)
[2017-07-16] MEDS: guaiFENesin/DM ER PO SCH ×2 (08:28→21:42)
[2017-07-16] MEDS: NIFEdipine XL 30 MG TAB PO SCH ×2 (08:28→21:59)
[2017-07-16] MEDS: Amiodarone 200 MG TAB PO SCH ×2 (08:28→21:41)
[2017-07-16] MEDS: Apixaban 5 MG TAB PO SCH ×2 (08:29→21:42)
--- NOTE | 2017-07-16 09:04 | PRG ---
DATE OF SERVICE: 07/16/2017 RENAL MEDICINE SUBJECTIVE: Ms. Curiel is feeling better. She was admitted for shortness of breath secondary to pn eumonia. She is tolerating her hemodialysis. She voices no new complaints today. PHYSICAL EXAMINATION: VITAL SIGNS: Blood pressure 138/64, heart rate 73, respiratory rate 18, temperature 97.5, pulse ox 9 6%. GENERAL: Awake, sitting comfortable, not in distress. SKIN: Adequate turgor. HEENT: Pinkish conjunctivae, anicteric sclerae. NECK: No neck mass, no carotid bruits, no JVD. CHEST: No deformities. LUNGS: Clear breath sounds. No wheezing, no crackles. HEART: Normal sinus rhythm. No murmur, no gallops, no rubs. ABDOMEN: Globular, soft, nontender. EXTREMITIES: No edema, no deformities. MEDICATIONS: Medications of 07/16/2017 was reviewed. LABORATORY DATA: Laboratories of 07/16/2017; white count 14.9, hemoglobin 10. Sodium 136, potassium 4.2, chloride 98, carbon dioxide 29, BUN 48, creatinine 3.78, glucose 127, calcium is 11. ANCA of less than 1:20. ASSESSMENT AND PLAN: 1. 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 Continuing maintenance hemodialysis. The patient is status post rituximab susana tment with her wall washer. 2. Pneumonia - clinically much improved. Continue supportive care. 3. Borderline anemia, currently on weekly Epogen. Agree with current management.
[2017-07-16] MEDS ORDERED: Heparin 10,000 UNITS/ 10 ML VIAL ONE (10:06)
--- NOTE | 2017-07-16 11:11 | PDOC.CTH ---
<Ashley Trevino - Last Filed: 07/16/17 11:09> Cardiology Progress Note - Subjective The pt seen and examined. No overnight events. No cardiac complaints. She feels more energy today. She already exercised with PT this AM without any difficulties. - Objective Vital Signs Temp Pulse Resp BP Pulse Ox 07/16/17 08:30 97.5 F L 73 18 96 07/16/17 08:23 97.5 F L 73 18 138/64 96 07/16/17 08:14 75 15 97 07/16/17 04:00 98.7 F 81 16 174/80 H 91 L 07/16/17 00:30 78 14 95 Weight 152 lb 1.6 oz 07/15/17 07/16/17 07/17/17 06:59 06:59 06:59 Intake Total 1690 1570 Output Total 450 2300 Balance 1240 -730 - Physical Examination General/Neuro: alert & oriented x3 Neck: no JVD present Lungs: CTA Heart: RRR Abdomen: soft Extremities: other: (no edema) - Telemetry Telemetry Rhythm: SR 60-70s - Labs Result Diagrams: 07/16/17 04:48 07/16/17 04:48 Troponin/CKMB CK-MB (CK-2) 3.5 ng/mL (0-6.6) 07/10/17 09:13 Troponin I 0.204 ng/mL (< 0.028) H 07/10/17 09:13 - Assessment/Plan 1. New onset of Afib with RVR - remain SR with Amiodarone PO 400mg BID for 1wk and change to 200mg BID. on Eliquis 2.5mg BID 2. Acute resp. failure 2ndary to PNA - stable with IV antibiotics; managed by PCP/Dry Mill Operator 3. HTN - stable with current medication; cont. monitor 4. CKD with HD on , , Wed - S/p IV Rituximab tx by bodybuilder; she had HD today;managed by sales promotion manager 5. DM type 2 - on ACHS BG check; managed by PCP 6. Hyperlipidemia - on statin 7. Chronic diastolic HF - stable; on Coreg and lisinopril; 8. Hx of AVR with bioprosthetic valve in 2016 - cont. monitor 9. Generalized weakness - the pt reported she feels weak due to s/p HD today MAR reviewed * From cardiac standpoint, the pt is stable to tx to rehab. The pt will f/u with Dr Castillo' office within 2 wks after she is discharged from rehab Review of Systems - Review of Systems Constitutional: reports: no symptoms reported EENTM: reports: no symptoms reported Respiratory: reports: no symptoms reported Cardiac (ROS): reports: no symptoms reported ABD/GI: reports: no symptoms reported : reports: no symptoms reported <Bigg Castillo - Last Filed: 07/16/17 15:15> Cardiology Progress Note - Objective Vital Signs Temp Pulse Resp BP Pulse Ox 07/16/17 14:00 67 15 97 07/16/17 11:44 97.5 F L 65 18 172/79 H 94 L 07/16/17 08:30 97.5 F L 73 18 96 07/16/17 08:23 97.5 F L 73 18 138/64 96 07/16/17 08:14 75 15 97 07/16/17 04:00 98.7 F 81 16 174/80 H 91 L Weight 152 lb 1.6 oz 07/15/17 07/16/17 07/17/17 06:59 06:59 06:59 Intake Total 1690 1570 Output Total 450 2300 Balance 1240 -730 - Labs Result Diagrams: 07/16/17 04:48 07/16/17 04:48 Troponin/CKMB CK-MB (CK-2) 3.5 ng/mL (0-6.6) 07/10/17 09:13 Troponin I 0.204 ng/mL (< 0.028) H 07/10/17 09:13 - Assessment/Plan Pt. seen and eval. by me. I agree with the A/P by the WATER SERVICE DISPATCHER. She looks overall improved and is anticipating going to rehab today if a bed is available. I will see her back in the office as an outpt. in the next 1-2 months. Exam : still some minimal rhonchi but denies SOB.
[2017-07-16] MEDS: Insulin Regular 300 UNITS/3 ML VIAL SC PRN ×2 (11:53→18:02)
[2017-07-16] MEDS: Amoxicillin/Potassium Clav 500 MG TAB PO SCH (18:03)
--- NOTE | 2017-07-16 19:18 | PRG ---
DATE OF SERVICE: 07/16/2017 HISTORY OF PRESENT ILLNESS: The patient has no new complaints, has been stable on room air over the last evening. Reports better breathing, still coughing with a covered button maker phlegm production. Bowels are moving well. The patient has more energy after dialysis on . Verbalized understanding abou t attempts to go to [facility] inpatient rehab today, which she was accepted for with case manageemanuel olson. After speaking with case management this afternoon, there were no available beds at [facility] and therefore, she was not transferred despite discharge orders being placed. The patient di d well with exercises with physical therapy and bed. Do not feel she is safe at this point in time t o go home given her generalized weakness and inability to have 24-hour care with her nephew whom she lives with now. The patient was ambulatory with a walker for a short distance today with physical kolby. PHYSICAL EXAMINATION: VITAL SIGNS: Temperature 97.5, pulse is 73, respiratory rate of 18, oxygen saturation 96% on room ai r, blood pressure of 138/64. GENERAL: The patient is alert, oriented, in no acute distress. HEENT: Head is normocephalic, atraumatic. Extraocular movements are intact. Sclerae are clear. Or al mucosa is moist. NECK: Supple. HEART: Regular rate and rhythm. No murmurs auscultated. LUNGS: Clear to auscultation bilaterally. No rubs, wheezes, rhonchi, or rales. Tunneled catheteriz ation of jugular is intact without erythema. Dressing in place. ABDOMEN: Soft, nontender. Positive bowel sounds throughout. EXTREMITIES: Lower extremities without cyanosis or edema. NEUROLOGIC: The patient is alert and oriented x3. No focal deficits. Speech is normal. LABORATORY DATA: White blood cell count of 14.9 on steroids, hemoglobin 10, platelet count of 316. Blood glucose last 12 hours, 117 to 314 range. Creatinine of 3.78. Sodium of 134, potassium of 4.2, chloride of 98, calcium of 11. ASSESSMENT AND PLAN: 1. Healthcare-acquired pneumonia from hemodialysis location, clinically improved. Transition to ora l Augmentin q.24 hours. Goal x7 days per Pulmonology. We will repeat chest x-ray on outpatient basi s for resolution of infiltrates. 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 3. End-stage renal disease, on hemodialysis. Continue Wednesday, , Wednesday dialysis under Ne phrology's purview. Added Epogen. Monitoring calcium at this point in time. 4. Paroxysmal atrial fibrillation. The patient is currently in sinus rhythm. We will continue amio darone and beta davie. Follow up EKG in the morning after transition to medical floor to give ayla tional space in telemetry unit after the patient has been stable for several days. 5. Prosthetic heart valve. Continue Eliquis. 6. Diabetes type 2, following hypoglycemia into the 60s. The patient was asymptomatic. Removal of glipizide x48 hours after dialysis, the patient has spiked up into the 300s. We will restart and mon itor for hypoglycemic events. Again, continue sliding scale insulin. We will await placement in inpatient rehabilitation, which may not happen over the weekend. We will reassess the patient's status with physical therapy going into next week and reassess disposition rishabh nning if the patient is stable to go to inpatient rehab on the weekend. Discharge planning per on-ca physician.
[2017-07-16] MEDS: Atorvastatin Calcium 10 MG TAB PO SCH (21:42)
[2017-07-16] MEDS: Latanoprost 0.005% Ophth Soln 2.5 ml Bottle EA EYE SCH (21:42)
[2017-07-17 05:41] LABS: Hemoglobin 10.1 g/dL (12.0-16.0); MDiff Complete? YES; Mean Corpuscular HGB CONC 31.7 g/dL (32.0-36.0); Mean Corpuscular Hemoglobin 31.6 pg (27.0-31.0); Mean Corpuscular Volume 99.7 fl (81.0-99.0); Mean Platelet Volume 7.2 fL (7.4-10.4); Platelet Count 322 thou/uL (130-400); RBC Distribution Width 13.8 % (11.5-14.5); Red Blood Cell (RBC) Count 3.19 mill/uL (4.20-5.40)
[2017-07-17 05:42] LABS: Band 6 % (5-11); Lymphocytes 3 % (21-51); Monocytes 4 % (0-10); Neutrophil 87 % (42-75); PLT Morphology Comment Appears Adequate; RBC Morphology Normal
[2017-07-17] MEDS: Sevelamer Carbonate 800 MG TAB PO SCH ×3 (08:00→17:14)
--- NOTE | 2017-07-17 10:04 | PRG ---
DATE OF SERVICE: 07/17/2017 RENAL MEDICINE SUBJECTIVE: Ms. Curiel is an 87-year-old white female with ESRD, undergoing hemodialysis, currently at the bedside supervising her dialysis. She complains of being tired. However, she denies being s hort of breath. She was admitted for pneumonia. PHYSICAL EXAMINATION: VITAL SIGNS: Blood pressure 169/74, heart rate 72, respiratory rate 18, temperature 96, pulse ox 96% . GENERAL: Awake, supine, lethargic, not in distress. SKIN: Adequate turgor. HEENT: Pinkish conjunctivae, anicteric sclerae. NECK: No neck mass, no carotid bruits, no JVD. CHEST: No deformities. LUNGS: Decreased breath sounds. HEART: Normal sinus rhythm. No murmurs, no gallops, no rubs. ABDOMEN: Globular, soft, nontender. No masses. EXTREMITIES: No edema. No deformities. MEDICATIONS: Medications of 07/17/2017 was reviewed. LABORATORY DATA: Laboratories of 07/17/2017; white count 16, hemoglobin 10.1. On 07/16/2017; sodium 136, potassium 4.2, chloride 98, carbon dioxide 29, BUN 48, creatinine 3.78, and calcium is 11. ASSESSMENT AND PLAN: 1. 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 Status pos t rituximab therapy. Continue current supportive dialysis. Continue 3 times a week hemodialysis. P curt is currently tolerating current dialysis regimen. 2. Pneumonia - on antibiotics, clinically improving. 3. Mild hypercalcemia, stable, actually it is slightly improved. Continue to observe. 4. Anemia, on weekly Epogen.
[2017-07-17] MEDS: guaiFENesin/DM ER PO SCH ×2 (12:05→21:34)
[2017-07-17] MEDS: Carvedilol 6.25 MG TAB PO SCH ×2 (12:06→21:34)
[2017-07-17] MEDS: Lisinopril 20 MG TAB PO SCH (12:06)
[2017-07-17] MEDS: NIFEdipine XL 30 MG TAB PO SCH ×2 (12:06→21:34)
[2017-07-17] MEDS: Amiodarone 200 MG TAB PO SCH ×2 (12:07→21:33)
[2017-07-17] MEDS: Apixaban 5 MG TAB PO SCH ×2 (12:07→21:34)
[2017-07-17] MEDS: predniSONE 20 MG TAB PO SCH (12:12)
--- NOTE | 2017-07-17 12:22 | PRG ---
DATE OF SERVICE: 07/17/2017 PRIMARY CARE PHYSICIAN: Dr. Jerry Robles. SUBJECTIVE: The events of yesterday I have noted patient was not able to be transferred to the rehab due to lack of bed availability at [facility]. The patient still in the hospital bed and she is do ing well. She continues to have cough and dyspnea on exertion. She feels weak after dialysis, but d oing some better. She is able to walk with assist up and in the hallway with therapy yesterday. She has a good appetite. Positive bowel movements. Denies fevers or chills. OBJECTIVE: VITAL SIGNS: Temperature 98.0, pulse of 70-78, respirations 18, blood pressure 169/74, pulse ox is 9 6% on room air. GENERAL: She is awake and alert, in no acute distress. She appears fatigued, but in no acute distre ss. HEENT: Mucosa is moist. NECK: Supple. HEART: Regular rate and rhythm. LUNGS: With scattered rhonchi, worse on the right side with some expiratory wheezing. ABDOMEN: Soft. EXTREMITIES: No edema. LABORATORY DATA: White blood cell count 16,000, hemoglobin and hematocrit 10.1 and 31.8 with macrocy tic indices, platelets of 322. Accu-Chek of 104. ASSESSMENT AND PLAN: This is an 87-year-old female patient with chronic kidney failure on dialysis w ith Bella's vasculitis, admitted with healthcare-acquired pneumonia. She has been improving throug hout her hospitalization. She was transitioned to oral Augmentin every 24 hours. She continues to h ave cough. Continues to feel weak, but slowly improving. 1. Healthcare-acquired pneumonia. We will continue Augmentin. 2. End-stage renal disease. Continue hemodialysis as per Dr. Oakes. Continue to monitor electrolytes . 3. Paroxysmal atrial fibrillation, remained stable at this time. We will continue amiodarone and be ta davie. 4. Prosthetic heart valve, on Eliquis. 5. Type 2 diabetes, has remained stable. Continue insulin sliding scale at this time. 6. Disposition: Awaiting placement. I will consider placement at the [facility] where the family desires her to be more long-term. The family has discussed with retail marketing executive there and they will do an evaluation on Wednesday for placement at that time versus inpatient rehabilitation. I w ill continue therapy and initiate walking program as well as an incentive spirometry while she remain s here in the hospital.
[2017-07-17] MEDS: Amoxicillin/Potassium Clav 500 MG TAB PO SCH (19:35)
[2017-07-17] MEDS: Latanoprost 0.005% Ophth Soln 2.5 ml Bottle EA EYE SCH (21:32)
[2017-07-17] MEDS: Atorvastatin Calcium 10 MG TAB PO SCH (21:34)
[2017-07-17] MEDS: Insulin Regular 300 UNITS/3 ML VIAL SC PRN (21:35)
[2017-07-18 05:11] LABS: Band 2 % (5-11); Burr Cells SLIGHT = 2-5 cells (100X) (0-1/hpf); Hemoglobin 10.6 g/dL (12.0-16.0); Lymphocytes 4 % (21-51); MDiff Complete? YES; Mean Corpuscular HGB CONC 32.8 g/dL (32.0-36.0); Mean Corpuscular Hemoglobin 32.4 pg (27.0-31.0); Mean Corpuscular Volume 98.8 fl (81.0-99.0); Mean Platelet Volume 7.2 fL (7.4-10.4); Metamyelocyte 2 % (0-0); Monocytes 5 % (0-10); Neutrophil 87 % (42-75); PLT Morphology Comment Appears Adequate; Platelet Count 311 thou/uL (130-400); RBC Distribution Width 13.8 % (11.5-14.5); Red Blood Cell (RBC) Count 3.26 mill/uL (4.20-5.40); White Blood Cell (WBC) Count 17.6 thou/uL (4.8-10.8)
[2017-07-18] MEDS: Sevelamer Carbonate 800 MG TAB PO SCH ×3 (08:11→17:28)
[2017-07-18] MEDS: Carvedilol 6.25 MG TAB PO SCH ×2 (08:12→20:18)
[2017-07-18] MEDS: Amiodarone 200 MG TAB PO SCH ×2 (08:12→20:17)
[2017-07-18] MEDS: NIFEdipine XL 30 MG TAB PO SCH ×2 (08:12→20:18)
[2017-07-18] MEDS: guaiFENesin/DM ER PO SCH ×2 (08:12→20:18)
[2017-07-18] MEDS: predniSONE 20 MG TAB PO SCH (08:13)
[2017-07-18] MEDS: Apixaban 5 MG TAB PO SCH ×2 (08:13→20:17)
[2017-07-18] MEDS: Lisinopril 20 MG TAB PO SCH (08:13)
--- NOTE | 2017-07-18 11:07 | PRG ---
DATE OF SERVICE: 07/18/2017 SUBJECTIVE: The patient is feeling better. She has more energy today since her dialysis yesterday. She ambulated in the room with assistance to the bathroom. She was ambulating prior to dialysis yes terday and is motivated to do the walking program today. She denies chest pain, shortness of breath, or palpitations. She states that her diet has been good. She has had a bowel movement in the last 2 days. No nausea or vomiting. PHYSICAL EXAMINATION: VITAL SIGNS: Temperature 98.1, pulse of 69, respirations 18, blood pressure 144/76, pulse oximetry i s 95% on room air. GENERAL: She is awake and alert, in no acute distress. Speech is clear. NECK: Supple. HEART: Regular rate and rhythm. LUNGS: Clear bilaterally. ABDOMEN: Soft. EXTREMITIES: With no edema. LABORATORY DATA: White blood cell count 17,600, hemoglobin and hematocrit 10.6 and 32.2, platelets o f 311. Accu-Cheks 119, 203, 100, 104. ASSESSMENT AND PLAN: This is an 87-year-old female patient with end-stage renal disease, on dialysis , admitted with healthcare-acquired pneumonia. She continues to improve. She is tolerating oral ant ibiotics. She has some cough, but is improving in her strength. 1. Healthcare-acquired pneumonia. We will continue Augmentin. 2. End-stage renal disease. Continue dialysis per Dr. Oakes on Wednesday, , Wednesday. 3. Paroxysmal atrial fibrillation is stable, on amiodarone and beta davie. 4. Prosthetic heart valve, on Eliquis. 5. Type 2 diabetes, on insulin sliding scale, but remains stable on diet. DISPOSITION: Awaiting placement. I discussed with the family and they desire placement at the [facility] in hope to be able to do her physical therapy [facility], awaiting evaluation by the [facility] tomorrow morning.
[2017-07-18] MEDS: Amoxicillin/Potassium Clav 500 MG TAB PO SCH (18:56)
[2017-07-18] MEDS: Atorvastatin Calcium 10 MG TAB PO SCH (20:17)
[2017-07-18] MEDS: Latanoprost 0.005% Ophth Soln 2.5 ml Bottle EA EYE SCH (20:18)
[2017-07-18] MEDS: Insulin Regular 300 UNITS/3 ML VIAL SC PRN (20:21)
[2017-07-19 05:43] LABS: Band 2 % (5-11); Hemoglobin 10.3 g/dL (12.0-16.0); Lymphocytes 7 % (21-51); MDiff Complete? YES; Mean Corpuscular HGB CONC 31.5 g/dL (32.0-36.0); Mean Corpuscular Hemoglobin 31.4 pg (27.0-31.0); Mean Corpuscular Volume 99.6 fl (81.0-99.0); Mean Platelet Volume 7.2 fL (7.4-10.4); Metamyelocyte 1 % (0-0); Monocytes 1 % (0-10); Neutrophil 89 % (42-75); PLT Morphology Comment Appears Adequate; Platelet Count 328 thou/uL (130-400); RBC Distribution Width 13.9 % (11.5-14.5); Red Blood Cell (RBC) Count 3.28 mill/uL (4.20-5.40); White Blood Cell (WBC) Count 19.7 thou/uL (4.8-10.8)
[2017-07-19] MEDS: Sevelamer Carbonate 800 MG TAB PO SCH ×3 (07:14→16:17)
[2017-07-19] MEDS: Apixaban 5 MG TAB PO SCH ×2 (07:15→20:32)
[2017-07-19] MEDS: guaiFENesin/DM ER PO SCH ×2 (07:15→20:34)
[2017-07-19] MEDS: predniSONE 20 MG TAB PO SCH (07:16)
[2017-07-19] MEDS: Amiodarone 200 MG TAB PO SCH ×2 (07:18→20:33)
[2017-07-19] MEDS: Lisinopril 20 MG TAB PO SCH (07:18)
[2017-07-19] MEDS: Carvedilol 6.25 MG TAB PO SCH ×2 (07:19→20:34)
[2017-07-19] MEDS: NIFEdipine XL 30 MG TAB PO SCH ×2 (07:19→20:34)
[2017-07-19] MEDS: Polyethylene Glycol 3350 17 GM Packet PO SCH (11:22)
[2017-07-19] MEDS: Amoxicillin/Potassium Clav 500 MG TAB PO SCH (16:17)
[2017-07-19] MEDS: Insulin Regular 300 UNITS/3 ML VIAL SC PRN ×2 (16:17→20:38)
--- NOTE | 2017-07-19 17:20 | PRG ---
DATE OF SERVICE: 07/19/2017 HISTORY OF PRESENT ILLNESS: The patient is awaiting placement at either [facility] or [facility] with physical therapy. She is pending release of her tetanus status for admission to [facility]. She remains on waitlist for admission to [facility]. She has had improv ed walking with physical therapy, but has not been on any superintendent terminal goals, still recommended to go to inpatient rehab for best therapy practices. The patient has no new complaints other than mild const ipation. OBJECTIVE: VITAL SIGNS: Temperature 97.5, pulse of 59, respiratory rate of 20, oxygen saturation 94% on room ai r, blood pressure 120/65. GENERAL: The patient is alert and oriented, no acute distress. HEENT: Normocephalic, atraumatic. Extraocular movements are intact. Sclerae are clear. Oral mucos a is moist. NECK: Supple. HEART: Regular rate and rhythm. No murmurs auscultated. LUNGS: Clear to auscultation bilaterally. No rubs or wheezes. ABDOMEN: Soft, nontender, slightly bloated. EXTREMITIES: No lower extremity edema. The patient with left upper extremity edema with some bruisi ng noted distal to blood draw site. No palpable cords or pallor. LABORATORY DATA: White blood cell count of 19.7, hemoglobin of 10.3, platelet count of 328, bands of 2. Blood glucoses in the last 12 hours are ranging 105-270 covered with sliding scale insulin. ASSESSMENT AND PLAN: Left lobar pneumonia, Bella vasculitis, end-stage renal disease on hemodialys is, diastolic congestive failure, paroxysmal atrial fibrillation, prosthetic heart valve, diabetes ty pe 2. Continuing current therapies on oral antibiotics and amiodarone. Continue on Eliquis. Awaiti ng placement for deconditioning, be the [facility] or [facility] with physical therapy. We will lloyd ck with case management day by day for discharge planning.
[2017-07-19] MEDS ORDERED: Bisacodyl 10 MG SUPP PR PRN (19:45)
[2017-07-19] MEDS: Atorvastatin Calcium 10 MG TAB PO SCH (20:33)
[2017-07-19] MEDS: Latanoprost 0.005% Ophth Soln 2.5 ml Bottle EA EYE SCH (20:35)
[2017-07-19 20:52] VITALS: TEMP 98.4
[2017-07-20 05:53] LABS: Band 5 % (5-11); Hemoglobin 10.6 g/dL (12.0-16.0); Lymphocytes 4 % (21-51); MDiff Complete? YES; Macrocytosis SLIGHT = 6-15 cells (100X) (0-5/hpf); Mean Corpuscular HGB CONC 33.1 g/dL (32.0-36.0); Mean Corpuscular Hemoglobin 32.8 pg (27.0-31.0); Mean Corpuscular Volume 99.1 fl (81.0-99.0); Mean Platelet Volume 7.5 fL (7.4-10.4); Metamyelocyte 2 % (0-0); Monocytes 6 % (0-10); Neutrophil 83 % (42-75); Nucleated RBC 1 % (0); PLT Morphology Comment Appears Adequate; Platelet Count 293 thou/uL (130-400); Red Blood Cell (RBC) Count 3.23 mill/uL (4.20-5.40)
--- NOTE | 2017-07-20 08:38 | PRG ---
DATE OF SERVICE: 07/20/2017 SUBJECTIVE: Ms. Curiel is an 87-year-old white female with ESRD secondary to biopsy-proven Pauci-Im mune glomerulonephritis. She is status post Rituximab therapy. She is currently undergoing dialysis . I am at the bedside supervising her dialysis. No new complaints today. No shortness of breath. PHYSICAL EXAMINATION: VITAL SIGNS: Blood pressure 155/73, heart rate 60, respiratory rate 18, temperature 98.4, pulse ox 1 00%. GENERAL: Noted to be awake, alert, supine, comfortable, not in distress. SKIN: Adequate turgor. HEENT: She has pinkish conjunctivae, anicteric sclerae. NECK: No neck mass, no carotid bruits, no JVD. CHEST: No deformities. LUNGS: Decreased breath sounds. HEART: Normal sinus rhythm. No murmur, no gallops, no rubs. ABDOMEN: Globular, soft, nontender, no masses. EXTREMITIES: No edema, no deformities. MEDICATIONS: 07/20/2017 - Reviewed. LABORATORY: 07/20/2017 - White count 21, hemoglobin 10.6. Glucose 104. 07/16/2017 - BUN 48, creatinine 3.78. ASSESSMENT AND PLAN: 1. End-stage renal disease - our plan is to do a 3-hour hemodialysis. Fluid removal of about 2 lite rs as tolerated. No changes in the dialysis bath. 2. Pneumonia - clinically improved. Currently on p.o. antibiotics. In the near future, we may need to consider decreasing her prednisone.
[2017-07-20] MEDS ORDERED: Heparin 10,000 UNITS/ 10 ML VIAL ONE (09:00)
[2017-07-20] MEDS: Sevelamer Carbonate 800 MG TAB PO SCH ×2 (09:13→11:15)
[2017-07-20] MEDS: Polyethylene Glycol 3350 17 GM Packet PO SCH (11:14)
[2017-07-20] MEDS: Amiodarone 200 MG TAB PO SCH (11:14)
[2017-07-20] MEDS: guaiFENesin/DM ER PO SCH (11:15)
[2017-07-20] MEDS: Apixaban 5 MG TAB PO SCH (11:15)
[2017-07-20] MEDS: predniSONE 20 MG TAB PO SCH (11:15)
[2017-07-20 11:21] VITALS: BP 123/77
[2017-07-20] MEDS: Carvedilol 6.25 MG TAB PO SCH (11:21)
[2017-07-20] MEDS: Lisinopril 20 MG TAB PO SCH (11:22)
[2017-07-20] MEDS: NIFEdipine XL 30 MG TAB PO SCH (11:22)
--- NOTE | 2017-07-21 00:37 | DIS ---
DATE OF ADMISSION: 07/10/2017 DATE OF DISCHARGE: 07/20/2017 CHIEF COMPLAINT: Shortness of breath. HISTORY OF PRESENT ILLNESS: The patient is undergoing hemodialysis following Bella's vasculitis with renal insufficiency followed by Dr. Oakes. She developed apparent left lower lobe pneumonia on x-ray in the emergency department, was placed on BiPAP transitioned to ICU step down after being titrated down to the nasal cannula with close observation, doing well with IV antibiotics and breathing treatments along with baseline steroids the patient was taking on an outpatient basis. HOSPITAL COURSE: The patient developed atrial fibrillation with RVR. She is known to have paroxysmal atrial fibrillation and was placed on amiodarone drip, transitioned to p.o. amiodarone and converted back into sinus rhythm with event. Cardiology recommending the patient be titrated down on amiodarone in the next 10 days or so from 400 mg BIDto 200 mg. Pulmonology is recommending repeat chest x-ray in 1-2 weeks to ensure resolution of lobar pneumonia. The patient has been stable on room air and recommended to complete 7 days of oral antibiotics. The patient is currently on day #5 of 7 of oral antibiotics. The patient has been significantly weak, was unable to ambulate initially. On post- dialysis days, she succeeded in ambulating 300 feet. On nondialysis days, has not been able to surpass 100 feet on dialysis days. The patient's current dialysis was Wednesday, , and Wednesday, recommended to continue. The patient was placed on Epogen weekly with dialysis. The patient remains anticoagulated with Eliquis following resolution of pneumonia. Surgery is planning on an outpatient basis to place AV fistula. At this point in time, the patient is maintained on right-sided tunneled catheter for hemodialysis, currently operating without any issues. The patient transitioned to [facility] today. The long-term goal of transitioning into [facility] assisted living. 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 The patient will likely need with home health, PT, and OT, so the patient transitioned to inpatient rehab until she can become stronger and be more independent. CONSULTATIONS: Include Pulmonary Critical Care, Dr. Prince, Nephrology with Dr. Oakes, Cardiology with Dr. Castillo. PERTINENT STUDIES: Include echocardiogram on 07/10/2017. DISCHARGE DIAGNOSES: Included: 1. Healthcare-acquired pneumonia left lobar with acute respiratory failure status resolved. 2. Bella's vasculitis. 3. End-stage renal disease on hemodialysis. 4. Anemia of chronic disease. 5. Paroxysmal atrial fibrillation. 6. Prosthetic heart valve on anticoagulation. 7. Type 2 diabetes. 8. Deconditioning. ACTIVITY: As tolerated up with assistance and with physical therapy and occupational therapy. DISCHARGE DIET: Renal, heart healthy, diabetes mellitus, carb controlled. DISCHARGE CONDITION: Fair. Follow up with Jerry Robles M.D. 1 week to 10 days after discharge from inpatient rehabilitation. SEAN
--- NOTE | 2017-07-27 14:55 | EKG ---
Test Reason : POSS A-FIB Blood Pressure : / mmHG Vent. Rate : 141 BPM Atrial Rate : 119 BPM P-R Int : 000 ms QRS Dur : 086 ms QT Int : 300 ms P-R-T Axes : 000 -29 119 degrees QTc Int : 459 ms Poor data quality, interpretation may be adversely affected Atrial fibrillation with rapid ventricular response Abnormal ECG When compared with ECG of 10-JUL-2017 09:17, (Unconfirmed) Atrial fibrillation has replaced Sinus rhythm Vent. rate has increased BY [address] now depressed in Lateral leads T wave inversion now evident in Lateral leads Confirmed by DR. Teresa DO ([id number]) on 07/27/2017 2:55:19 PM Referred By: SHARLENE Confirmed By:DR. Teresa DO
== END 2017-07-20 15:51 | DRG 871 ==
LOC: ERS 08:56 → ERHOLD 11:24 → IMCU/EMU 13:30 → 2NO 07-13 15:52 → T4-B 07-17 20:54
PROVIDERS: ADMIT Family Medicine; ATTEND Family Medicine
PROC: 5A09357 Assistance with Respiratory Ventilation, Less than 24 Consecutive Hours, Continuous Positive Airway Pressure (ICD-10-PCS; principal; 2017-07-10)
PROC: 5A1D70Z Performance of Urinary Filtration, Intermittent, Less than 6 Hours Per Day (ICD-10-PCS; 2017-07-10)
PROC: 5A1D70Z Performance of Urinary Filtration, Intermittent, Less than 6 Hours Per Day (ICD-10-PCS; 2017-07-13)
PROC: 5A1D70Z Performance of Urinary Filtration, Intermittent, Less than 6 Hours Per Day (ICD-10-PCS; 2017-07-15)
PROC: 5A1D70Z Performance of Urinary Filtration, Intermittent, Less than 6 Hours Per Day (ICD-10-PCS; 2017-07-17)
PROC: 5A1D70Z Performance of Urinary Filtration, Intermittent, Less than 6 Hours Per Day (ICD-10-PCS; 2017-07-20)
DX: A41.9 Sepsis, unspecified organism (principal); J96.01 Acute respiratory failure with hypoxia; M31.31 Wegener's granulomatosis with renal involvement; J18.1 Lobar pneumonia, unspecified organism; E11.649 Type 2 diabetes mellitus with hypoglycemia without coma; I11.0 Hypertensive heart disease with heart failure; I50.32 Chronic diastolic (congestive) heart failure; M32.14 Glomerular disease in systemic lupus erythematosus; N18.6 End stage renal disease; I48.0 Paroxysmal atrial fibrillation; R65.20 Severe sepsis without septic shock; E83.52 Hypercalcemia; Z99.2 Dependence on renal dialysis; Z90.13 Acquired absence of bilateral breasts and nipples; Z95.2 Presence of prosthetic heart valve; Z88.8 Allergy status to other drugs, medicaments and biological substances; N05.8 Unspecified nephritic syndrome with other morphologic changes; Y95 Nosocomial condition; Z79.01 Long term (current) use of anticoagulants; Z79.4 Long term (current) use of insulin; D63.1 Anemia in chronic kidney disease; Z79.899 Other long term (current) drug therapy; Z85.3 Personal history of malignant neoplasm of breast; I08.1 Rheumatic disorders of both mitral and tricuspid valves; E78.5 Hyperlipidemia, unspecified
CPT/HCPCS: 36415; 36416; 51701; 71045; 71046; 80048; 80053; 81003; 81015; 82553; 82805; 83605; 83735; 83880; 84484; 85025; 85060; 85610; 86021; 86038; 87040; 87086; 87340; 87633; 87798; 87804; 90935; 93005; 93010; 93306; 94640; 94660; 94760; 96365; 96367; 96375; A4216; A4353; G0257; G8978-GP-CK; G8979-GP-CI; J0282; J0456; J0696; J1644; J1815; J3370; J7050; J7070; J7506; J7620; Q4081

== ENCOUNTER 2017-09-14 09:35 | Outpatient (CLI) | payer MEDICARE, OTHER | END 2017-09-14 09:36 | disposition home or self-care (01) | LOC: BICMAMMO 09:35 | PROVIDERS: ATTEND Internal Medicine Rheumatology | DX: M81.0 Age-related osteoporosis without current pathological fracture (principal) | CPT/HCPCS: 77080 ==

== ENCOUNTER 2017-10-05 07:26 | Outpatient (CLI) | payer MEDICARE, OTHER ==
--- NOTE | 2017-10-05 09:28 | ULT ---
VEIN MAPPING FOR DIALYSIS ACCESS: Date: 10/05/17 HISTORY: Renal failure. Evaluate for left upper extremity venous access for dialysis graft. TECHNIQUE: Multiplanar Wade scale and color Doppler images were obtained in a bilateral upper extremity venous u ltrasound. Spectral analysis of Doppler waveforms performed. FINDINGS: The bilateral internal jugular veins are patent without evidence of thrombus. The right subclavian ve in could not be seen secondary to a catheter and overlying bandages. The left subclavian vein is alexander nt without evidence of thrombus. The right brachial, radial, and ulnar arteries measure 3.5, 1.1, and 1.1 mm in size, respectively. The left brachial, radial, and ulnar arteries measure 3.5, 1.0, and 1.5 mm in size, respectively. RIGHT UPPER EXTREMITY CEPHALIC VEIN Shoulder 2.3 mm Upper arm 3.3 mm Mid upper arm 2.6 mm Just proximal to elbow 3.1 mm Just distal to elbow 1.7 mm Forearm 2.3 mm At wrist 2.2 mm BASILIC VEIN Shoulder 3.8 mm Upper arm 3.2 mm Mid upper arm 2.8 mm Just proximal to elbow 3.0 mm Just distal to elbow 1.5 mm Mid forearm 1.0 mm At wrist 0.7 mm LEFT UPPER EXTREMITY CEPHALIC VEIN Shoulder 3.2 mm Upper arm 3.8 mm Mid upper arm 3.5 mm Just proximal to elbow 3.2 mm Just distal to elbow 1.6 mm Mid forearm 2.4 mm At wrist 2.0 mm BASILIC VEIN Shoulder 2.3 mm Upper arm 2.7 mm Mid upper arm 2.6 mm Just proximal to elbow 1.8 mm Just distal to elbow 1.0 mm Mid forearm 1.2 mm At wrist 0.7 mm IMPRESSION: Vein mapping for dialysis access as above. POS: GEREMIAS
== END 2017-10-05 07:27 | disposition home or self-care (01) ==
LOC: ULT 07:26
DX: N18.6 End stage renal disease (principal)
CPT/HCPCS: 93970; G0365

== ENCOUNTER 2017-10-29 05:59 | Day surgery (SDC) | payer MEDICARE, OTHER ==
--- NOTE | 2017-10-25 08:43 | HP ---
HISTORY OF PRESENT ILLNESS: Johanna Curiel is an 87-year-old female who had a right IJ cuffed tunne led dialysis catheter placed in [place] 01/2017 that required exchange later [address] Herrera robertson. The patient had ultrasound vein mapping prior to this visit and has good cephalic veins both arms. On the right she is right-handed. The patient lives in [facility]. She arrives in my office in a wheelchair. She does ambulate with a walker, although unsteady. She is on Eliquis for a prosthetic aortic valve. Ultrasound vein mapping both arms reveals a right a rm cephalic vein 2.3, 3.3, 2.6, 3.1 mm, antecubital fossa 1.7 mm, 2.3 mm, 2.2 mm forearm with basilic vein 3.8, 3.2, 2.8 mm, 3 mm antecubital fossa and 1.5, 1.0 and 0.7 mm forearm. Left cephalic vein 3 .2, 3.8, 35, 3.2 mm just proximal to the elbow at the antecubital fossa 1.6 mm, 2.42 mm, basilic ve in 2.3, 2.7, 2.6 mm, 1.8 mm antecubital fossa distally 1.0, 1.2 and 0.7 mm. Plan is for right arm fi stula. She will hold her Eliquis for 3 days prior and resume her Eliquis the day after surgery that evening. Risk of infection, bleeding, reoperation, revision explained. She consents. IV access usi ng her dialysis catheter will be utilized PAST SURGICAL HISTORY: Hemodialysis catheter right IJ 2016, bilateral mastectomies 1992, she had schuyler ast cancer in 1 breast and 3 months later had breast cancer in the other breast requiring bilateral m astectomies. Hemodialysis catheter placed 01/2017. She [facility] Wednesday[facility] Wednesday[facility] She is followed by Dr. Oakes. She has been seeing Dr. Castillo in the past. Her primary care physician, Dr. Jerry Robles. PAST MEDICAL HISTORY: Recent pneumonia requiring rehab stay earlier this year, end-stage renal disea se, diabetes mellitus, history of lupus, history of hypertension, history of aortic valve replacement PAST SURGICAL HISTORY: Double mastectomy in 1992, lens implants 2002, aortic valve replacement 2016 in [place], appendectomy as a child, tonsillectomy as a child, hysterectomy, bilateral oophorectomy b enign disease. ALLERGIES: HYDRALAZINE. TOBACCO: None. ALCOHOL: None. MEDICATIONS: Benzonatate as needed twice a day, lorazepam 0.5 mg 1/2 tablet q.i.d. p.r.n., Remeron 1 5 mg at bedtime, Eliquis 2.5 mg twice a day, Sertraline 50 mg once a day, glipizide 5 mg 1/2 tablet e very day, Sevelamer 800 mg with meals three times a day, Bactrim-DS daily, multiple eye drops, Proton ix 40 mg a day, atorvastatin 10 mg daily, amiodarone 200 mg once a day, hold on Wednesday, Wednesday, an d Wednesday, carvedilol 12.5 mg once a day, hold on Wednesday, Wednesday, and Wednesday, lisinopril 20 mg a , hold on Wednesday, Wednesday, and Wednesday, prednisone 20 mg taper, clonidine 0.2 mg twice a day, Sensi par 30 mg after meals with food once a day. REVIEW OF SYSTEMS: Ten point noncontributory except as noted above. PHYSICAL EXAMINATION: VITAL SIGNS: Weight 152 pounds, 67 inches. She is in a wheelchair. Blood pressure 93/40, 58, 97.9 degrees. LUNGS: Clear to auscultation. CARDIAC: Regular rate and rhythm without murmur or gallop. ABDOMEN: Soft, nontender. EXTREMITIES: Unremarkable. Palpable radial pulses She is a thin individual with a fragile appearin g forearm veins. She has an antecubital veins superior on the right relative to the left. ASSESSMENT AND PLAN: 1. End-stage renal disease. She has a hemodialysis catheter, right IJ. We will use for IV access b lood draws. We will plan right arm primary fistula, proximal forearm, regional anesthesia and sedati on. She will follow up in the office in 3 weeks. She is advised that she should exercise her arm af ter block resolves. The patient is on Eliquis and she will hold that for 3 days preoperatively and r esume it the day after surgery that evening. 2. Diabetes mellitus. 3. Hypertension. 4. Prosthetic aortic valve. 5. Lupus, on steroids.
[2017-10-28 16:29] VITALS: BMI 23.5
[2017-10-29] MEDS ORDERED: Bupivacaine HCl 0.5%/Epinephrine 1:200,000/PF 30 ml Vial ONE ×2 (06:42→15:45)
[2017-10-29] MEDS ORDERED: Heparin 5,000 UNITS/ML VIAL ONE (06:42)
[2017-10-29] MEDS ORDERED: Lidocaine 2% 10 ML INJ ONE (06:42)
[2017-10-29] MEDS ORDERED: Protamine Sulfate 50 MG/5 ML VIAL ONE (06:42)
[2017-10-29] MEDS ORDERED: CEFAZOLIN/Water 2 GM/20 ML SYRINGE ONE (06:45)
[2017-10-29 07:01] LABS: #Eosinphils 0.2 thou/uL (0.0-0.7); #Lymphocytes 1.1 thou/uL (1.20-3.40); #Monocytes 0.6 thou/uL (0.11-0.59); #Neutrophils 4.8 thou/uL (1.40-6.50); %Basophils 0.3 % (0.0-1.0); %Eosinophils 3.4 % (0.0-10.0); %Lymphocytes 15.9 % (21.0-51.0); %Monocytes 9.4 % (0.0-10.0); %Neutrophils 71.1 % (42.0-75.0); Mean Corpuscular HGB CONC 31.7 g/dL (32.0-36.0); Mean Corpuscular Hemoglobin 31.2 pg (27.0-31.0); Mean Corpuscular Volume 98.5 fl (81.0-99.0); Mean Platelet Volume 7.7 fL (7.4-10.4); Platelet Count 222 thou/uL (130-400); RBC Distribution Width 13.8 % (11.5-14.5); Red Blood Cell (RBC) Count 3.53 mill/uL (4.20-5.40); White Blood Cell (WBC) Count 6.8 thou/uL (4.8-10.8)
[2017-10-29] MEDS ORDERED: Midazolam HCl 2 mg/2 ml Vial ONE ×2 (07:06→08:28)
[2017-10-29] MEDS ORDERED: Fentanyl 100 MCG/2 ML VIAL ONE (07:06)
[2017-10-29 07:19] LABS: Anion Gap 13 mmol/L (10-20); BUN (Urea Nitrogen) 39 mg/dL (9.8-20.1); Calc. Creatinine Clearance 8 mL/min (70-130); Calcium 10.8 mg/dL (7.8-10.44); Carbon Dioxide 30 mmol/L (23-31); Chloride 96 mmol/L (98-107); Estimated GFR-MDRD 7; Glucose 97 mg/dL (83-110); Potassium 4.8 mmol/L (3.5-5.1); Sodium 134 mmol/L (136-145)
--- NOTE | 2017-10-29 10:41 | OP ---
DATE OF PROCEDURE: 10/29/2017 PREOPERATIVE DIAGNOSES: End-stage renal disease with preexisting hemodialysis catheter of right inte rnal jugular and chronic anticoagulation on Eliquis for a prosthetic aortic valve. POSTOPERATIVE DIAGNOSES: End-stage renal disease with preexisting hemodialysis catheter of right int ernal jugular and chronic anticoagulation on Eliquis for a prosthetic aortic valve. PROCEDURES: Right arm primary AV fistula, perforating branch antecubital vein to the proximal radial artery, outflow cephalic vein with communicating branch basilic vein appear fibrotic, but preserved, retrograde antecubital vein preserved. Good Doppler signal in the cephalic vein outflow upper arm. ESTIMATED BLOOD LOSS: 20 mL. BLOOD TRANSFUSED: None. ANESTHESIA: Regional anesthesia, TIVA. PROCEDURE IN DETAIL: Patient taken to the operating room where under regional anesthesia and intrave nous sedation, right upper extremity was prepared with ChloraPrep and draped in routine fashion. Pro ximal volar incision made and carried down to the skin and subcutaneous tissue below the antecubital fossa longitudinally. Antecubital vein was of good caliber. Communicating branch to the basilic vei n appeared to be fibrotic and retrograde antecubital vein preserved. Perforating branch antecubital vein was large and dissected free and branches divided between clips and 4-0 silk ties and vein spatu lated over a branch point. Patient is given 6,000 units of heparin intravenously by Anesthesia. Per forating branch of antecubital vein interrogated with coronary dilators, passing coronary dilators fr om a 2 mm to a 4 mm dilator obstructed the cephalic vein outflow, 3 mm long. Dilator used without ob struction. After adequate circulation time, the brachial, ulnar, and radial arteries were clamped an d branches temporary controlled with loose clips and longitudinal arteriotomy made sharply and elonga mina with Mei scissors over the proximal radial artery and distal brachial artery. Artery was small but of good quality without arteriosclerotic disease. End vein to side proximal artery/brachial art andrew anastomosis created with continuous suture of 6-0 Prolene. Vascular clamps were released and the re was good flow in the fistula interrogated by Doppler in the outflow upper arm. Good hemostasis ob tained with 4-0 silk ties and clips. The patient was given 25 mg of protamine intravenously by Yevgeniy woodruff. Subcutaneous tissues approximated with 3-0 Monocryl, skin with subdermal 4-0 Monocryl and Lance maGlue applied.
[2017-10-29] MEDS ORDERED: Heparin 10,000 UNITS/ 10 ML VIAL ONE (16:07)
== END 2017-10-29 11:30 | disposition home or self-care (01) ==
LOC: SDC 05:59
PROVIDERS: ATTEND Specialist
PROC: 031B0ZF Bypass Right Radial Artery to Lower Arm Vein, Open Approach (ICD-10-PCS; principal; 2017-10-29)
DX: I12.0 Hypertensive chronic kidney disease with stage 5 chronic kidney disease or end stage renal disease (principal); E11.22 Type 2 diabetes mellitus with diabetic chronic kidney disease; N18.6 End stage renal disease; M32.9 Systemic lupus erythematosus, unspecified; Z88.8 Allergy status to other drugs, medicaments and biological substances; Z79.01 Long term (current) use of anticoagulants; Z79.52 Long term (current) use of systemic steroids; Z95.2 Presence of prosthetic heart valve; Z99.2 Dependence on renal dialysis; Z98.890 Other specified postprocedural states
CPT/HCPCS: 36415; 80048; 85025; J0670; J1644; J2250; J2720; J3010

== ENCOUNTER 2018-01-18 10:04 | Outpatient (CLI) | payer MEDICARE, OTHER | END 2018-01-18 10:05 | disposition home or self-care (01) | LOC: BICRAD 10:04 | PROVIDERS: ATTEND Internal Medicine Rheumatology | DX: I77.6 Arteritis, unspecified (principal); M41.9 Scoliosis, unspecified | CPT/HCPCS: 71046 ==

== ENCOUNTER 2018-02-17 14:22 | Emergency (ER) | payer MEDICARE, OTHER ==
--- NOTE | 2018-02-17 15:10 | RAD ---
ONE VIEW PELVIS: History: Altered mental status. Weakness. Comparison: None. FINDINGS: Single view of the pelvis limits evaluation of the sacral ala due to bowel gas and fecal material as well as bone demineralization. The rest of the sacral ala appear to be preserved. Bony pelvis appears to be intact. Contours of both femoral heads are maintained and the hip joint spaces are symmetric. IMPRESSION: No definite fracture. POS: [facility]
[2018-02-17 15:19] LABS: #Eosinphils 0.1 thou/uL (0.0-0.7); #Lymphocytes 0.9 thou/uL (1.20-3.40); #Monocytes 0.8 thou/uL (0.11-0.59); #Neutrophils 8.6 thou/uL (1.40-6.50); %Basophils 0.1 % (0.0-1.0); %Eosinophils 0.6 % (0.0-10.0); %Lymphocytes 8.6 % (21.0-51.0); %Monocytes 7.6 % (0.0-10.0); %Neutrophils 83.1 % (42.0-75.0); Hemoglobin 8.3 g/dL (12.0-16.0); Mean Corpuscular HGB CONC 32.4 g/dL (32.0-36.0); Mean Corpuscular Hemoglobin 32.5 pg (27.0-31.0); Mean Platelet Volume 7.3 fL (7.4-10.4); Platelet Count 382 thou/uL (130-400); RBC Distribution Width 13.9 % (11.5-14.5); Red Blood Cell (RBC) Count 2.55 mill/uL (4.20-5.40); White Blood Cell (WBC) Count 10.3 thou/uL (4.8-10.8)
[2018-02-17 15:40] LABS: ALT (SGPT) 7 U/L (8-55); AST (SGOT) 11 U/L (5-34); Albumin 3.4 g/dL (3.4-4.8); Alkaline Phosphatase 88 U/L (40-150); Anion Gap 14 mmol/L (10-20); BUN (Urea Nitrogen) 42 mg/dL (9.8-20.1); Bilirubin, Total 0.4 mg/dL (0.2-1.2); Calc. Creatinine Clearance 0 mL/min (70-130); Calcium 9.8 mg/dL (7.8-10.44); Carbon Dioxide 30 mmol/L (23-31); Chloride 96 mmol/L (98-107); Estimated GFR-MDRD 8; Globulin 2.7 g/dL (2.4-3.5); Glucose 94 mg/dL (83-110); Protein, Total 6.1 g/dL (6.0-8.3); Sodium 136 mmol/L (136-145)
[2018-02-17 15:43] LABS: CKMB 0.5 ng/mL (0-6.6); Troponin I 0.021 ng/mL (< 0.028)
--- NOTE | 2018-02-17 16:26 | RAD ---
PORTABLE CHEST ONE VIEW: 02/17/18 at 3:17 p.m. HISTORY: Cough. FINDINGS/IMPRESSION: Comparison is made with the exam of 07/10/17. The heart is enlarged. There is a small left pleural effusion with adjacent infiltrate/atelectatic ch chana. The aorta is tortuous. There is evidence of old granulomatous disease. There are surgical clips in the axillae on either side. No pneumothoraces are seen. POS: [facility]
== END 2018-02-17 19:00 | disposition home or self-care (01) ==
LOC: ERS 14:22
DX: R53.1 Weakness (principal); D64.9 Anemia, unspecified; E11.22 Type 2 diabetes mellitus with diabetic chronic kidney disease; N18.6 End stage renal disease; I12.0 Hypertensive chronic kidney disease with stage 5 chronic kidney disease or end stage renal disease; Z79.899 Other long term (current) drug therapy
CPT/HCPCS: 36415; 71045; 72170; 80053; 82274; 82553; 83880; 84484; 85025; 86850; 86900; 86901; 93005; 94640; 94760; J7620

== ENCOUNTER 2018-03-20 07:29 | Inpatient (IN) | payer MEDICARE, OTHER ==
[2018-03-20 08:20] LABS: Bilirubin Negative (Negative); Blood, Urine Negative (Negative); Clarity CLEAR (Clear); Glucose, Urine (Dipstick) Negative (Negative); Leukocyte Negative (Negative); Nitrite Negative (Negative); Protein, Urine (Dipstick) 100 mg/dL (Neg-Trace); Specific Gravity, Urine 1.014 (1.002-1.036); Urobilinogen 0.2 mg/dL (0.2-1.0)
[2018-03-20 08:20] LABS: #Monocytes 0.4 thou/uL (0.11-0.59); #Neutrophils 6.9 thou/uL (1.40-6.50); %Eosinophils 0.3 % (0.0-10.0); %Monocytes 5.2 % (0.0-10.0); %Neutrophils 82.5 % (42.0-75.0); Hemoglobin 7.4 g/dL (12.0-16.0); Mean Corpuscular HGB CONC 31.1 g/dL (32.0-36.0); Mean Corpuscular Hemoglobin 31.5 pg (27.0-31.0); Mean Platelet Volume 6.9 fL (7.4-10.4); Platelet Count 468 thou/uL (130-400); RBC Distribution Width 16.1 % (11.5-14.5); Red Blood Cell (RBC) Count 2.34 mill/uL (4.20-5.40); White Blood Cell (WBC) Count 8.4 thou/uL (4.8-10.8)
[2018-03-20 08:21] LABS: Bacteria/HPF None Seen HPF (None Seen); Pathc Cast-AUWi Flag 1.74 (0-2.49); RBC/HPF 0-3 HPF (0-3); Squamous Epithelial 0-3 HPF (0-3); WBC/HPF 0-3 HPF (0-3)
[2018-03-20 08:36] LABS: Hyaline Casts/LPF 0-3 HYALINE CAST LPF (0-3 Hyaline); Renal Epithelial 0-3 HPF (0-3); Transitional Epithelial 0-3 HPF (0-3)
[2018-03-20 08:41] LABS: ALT (SGPT) 15 U/L (8-55); AST (SGOT) 37 U/L (5-34); Albumin 3.3 g/dL (3.4-4.8); Alkaline Phosphatase 91 U/L (40-150); Anion Gap 17 mmol/L (10-20); BUN (Urea Nitrogen) 31 mg/dL (9.8-20.1); Bilirubin, Total 0.5 mg/dL (0.2-1.2); CK (CPK) 42 U/L (29-168); Calc. Creatinine Clearance 0 mL/min (70-130); Calcium 9.3 mg/dL (7.8-10.44); Carbon Dioxide 29 mmol/L (23-31); Chloride 96 mmol/L (98-107); Estimated GFR-MDRD 9; Globulin 2.5 g/dL (2.4-3.5); Glucose 108 mg/dL (83-110); Potassium 3.7 mmol/L (3.5-5.1); Protein, Total 5.8 g/dL (6.0-8.3); Sodium 138 mmol/L (136-145)
[2018-03-20 08:45] LABS: CKMB 1.2 ng/mL (0-6.6)
[2018-03-20 08:50] LABS: Troponin I 0.997 ng/mL (< 0.028)
--- NOTE | 2018-03-20 09:05 | RAD ---
1 VIEW CHEST: Date: 03/20/18 COMPARISON: 02/17/18. HISTORY: Cough. Chronic lung problems. FINDINGS: Enlarged cardiac silhouette and atherosclerosis of aorta. Pulmonary vessels are slightly prominent. T here are bibasilar pleural and parenchymal changes. No pneumothorax. IMPRESSION: Presumed congestive heart failure. Continued surveillance recommended. POS: [facility]
[2018-03-20] MEDS ORDERED: Aspirin 325 MG TAB ONE (10:03)
[2018-03-20] MEDS ORDERED: Enoxaparin Sodium 80 MG/0.8 ML SYRINGE ONE (10:03)
[2018-03-20] MEDS ORDERED: Ondansetron HCl/PF 4 MG/2 ML Vial IVP PRN ×2 (11:20→11:32)
[2018-03-20] MEDS ORDERED: Acetaminophen 325 MG TAB PO PRN (11:20)
[2018-03-20] MEDS ORDERED: Ondansetron ODT 4 MG TAB SL PRN (11:20)
[2018-03-20 11:23] VITALS: BMI 24.8
[2018-03-20] MEDS ORDERED: Pepto Bismol Chew TAB PO PRN (11:32)
[2018-03-20] MEDS ORDERED: Docusate 100 MG CAP PO PRN (11:32)
[2018-03-20] MEDS ORDERED: Bisacodyl 5 MG TAB PO PRN (11:32)
[2018-03-20] MEDS ORDERED: Promethazine 25 MG TAB PO PRN (11:32)
[2018-03-20] MEDS ORDERED: Ondansetron ODT 4 MG TAB PO PRN (11:32)
[2018-03-20] MEDS ORDERED: Famotidine 20 MG TAB PO PRN ×2 (11:32→14:09)
[2018-03-20] MEDS ORDERED: Acetaminophen 500 MG TAB PO PRN (11:32)
[2018-03-20 12:04] LABS: Troponin I 1.229 ng/mL (< 0.028)
[2018-03-20 12:17] LABS: Magnesium 2.1 mg/dL (1.6-2.6); Phosphorus 3.5 mg/dL (2.3-4.7)
--- NOTE | 2018-03-20 13:46 | CT ---
CT BRAIN: DATE: 03/20/18. PROVIDED CLINICAL HISTORY: Lethargy, change in mental status. FINDINGS: No comparisons. The ventricular system appears normal in size and morphology. T here is no evidence for intracranial hemorrhage or mass effect. Encephalomalacia in the right parietal region compatible with prior infarction. The extracranial soft tissues and osseous structures demonstrate no acute fi ndings. IMPRESSION: No evidence for intracranial hemorrhage or mass effect. Findings were communicated with Dr. Robles via telephone 1:37 p.m. 03/20/18. CODE CR POS: [facility]
[2018-03-20 14:26] LABS: INR-International Normal Ratio 1.9; PTT 58.6 SEC (22.9-36.1); Prothrombin Time 21.9 SEC (12.0-14.7)
[2018-03-20 14:45] LABS: Critical Call Chem Troponin I RESULT DECREASING
[2018-03-20] MEDS: Sevelamer Carbonate 800 MG TAB PO SCH ×2 (14:46→17:43)
[2018-03-20] MEDS: cefTRIAXone\\ROCEPHIN 2 GM in Sodium Chloride 0.9% 100 ML IVPB SCH (14:47)
--- NOTE | 2018-03-20 15:19 | CON ---
DATE OF CONSULTATION: 03/20/2018 SERVICE: Pulmonary Medicine REASON FOR CONSULTATION: Respiratory failure. HISTORY OF PRESENT ILLNESS: The patient is an 88-year-old white female with past medical history significant for ANCA-associated vascularity. This was diagnosed several years ago. She has been on disease modifying therapy ever since. She has not had any recurrence of the disease process since the original presentation. She was in the hospital [facility] for respiratory event, not associated with vasculitis. She responded to diuretics, but antibiotics were also provided. Because of increasing respiratory difficulties and altered mentation, she was subsequently brought to the emergency department. She was tucked into the [facility]. Stroke alert was just called on her. She was brought down, but did not have any focalizing neurologic deficits. A CT scan was unremarkable. Either way, she would not be a candidate for some emergency procedure or TPA. That being said does not appear as though she is having an acute neurologic injury. I have had the opportunity to watch her sleep. She has horrendous obstructive events associated with intermittent desaturation, consistent with untreated sleep apnea. Otherwise, she cannot provide any additional elements of the history because of her encephalopathy. PAST MEDICAL HISTORY: 1. Bella's granulomatosis. 2. End-stage renal disease. 3. Type 2 diabetes mellitus. PAST SURGICAL HISTORY: 1. Hysterectomy. 2. Double mastectomy. 3. Cataract surgery. 4. Appendectomy. 5. Tonsillectomy. 6. Aortic valve replacement. FAMILY HISTORY: Noncontributory. SOCIAL HISTORY: Negative for alcohol, tobacco or illicit drug use. She lives in a nursing facility. ALLERGIES: HYDRALAZINE. MEDICATIONS: List of inpatient medications were reviewed. No specific updates were made at this time. REVIEW OF SYSTEMS: This cannot be obtained as the patient is currently encephalopathic. PHYSICAL EXAMINATION: VITAL SIGNS: Afebrile, pulse 99, blood pressure 147/75, respirations 20, saturation 97% on room air. GENERAL: The patient is sleepy. She responds to noxious stimuli in all 4 extremities. That being said, without stimulation, she will drift off back to sleep within 3 seconds. HEENT: Normocephalic, atraumatic. Sclerae are white, conjunctivae pink. Oral mucosa is moist without lesions. LUNGS: Excellent air entry. She does have transmitted breath sounds from the upper airway. HEART: Normal rate, regular. ABDOMEN: Soft, nontender, nondistended. Bowel sounds are positive. MUSCULOSKELETAL: No cyanosis or clubbing. There is no pitting in the bilateral lower extremities. NEUROLOGIC: Grossly nonfocal. She will withdraw from noxious stimuli in all 4 extremities. She does wake up and appropriately answer questions. LABORATORY DATA: WBC 8.4, hemoglobin 7.4, platelets 468,000. INR 1.9. Troponin 1.22 and up trending, BNP 6900. Magnesium and phosphorus are elevated. Lactate is unremarkable. Liver function studies and basic metabolic profile are essentially unremarkable except for creatinine of 4.58. Urinalysis is negative. IMAGING: CT of the brain demonstrates no acute intracranial abnormality. Chest x-ray demonstrates bibasilar infiltrates, effusions, consistent with volume overload. Cephalization is also noted. ASSESSMENT: 1. Acute hypoxic respiratory failure. 2. Volume overload. 3. End-stage renal disease. 4. Obstructive sleep apnea, horrendous. 5. Encephalopathy, likely secondary to horrendous sleep apnea. DISCUSSION AND PLAN: I will put the patient on CPAP between 7 and 13 cm of water pressure. We titrated at bedside to make certain that we can fix the obstructive events. In the outpatient setting, the patient will require a polysomnogram if the family wants to be aggressive with her moving forward. I do not believe that the infiltrates on the chest x-ray with represent resurgence in her vasculitis process. We will get her volume neutral. Once she is, repeat chest x-ray can be performed. At this point, I would recommend doing nothing more than continuing her outpatient immunosuppressing medications. I am doubtful she has an infection, as such, I am okay with the current choice of antibiotics. 70 minutes have been devoted to this patient in various activities. I personally reviewed all imaging studies and laboratory data noted within this document. For fifty percent of this time, I was interacting with the patient at the bedside or coordinating care with the care team. For the remainder of the time I was immediately available to the patient in the hospital unit. SEAN
[2018-03-20] MEDS ORDERED: Dextrose 50% Abboject 50 ML SYRINGE SLOW IVP PRN (16:07)
[2018-03-20] MEDS ORDERED: Dextrose 5% in Water 1,000 ML IV PRN (16:07)
[2018-03-20] MEDS ORDERED: HumaLOG 300 UNITS/3 ML VIAL SC PRN (16:07)
[2018-03-20] MEDS ORDERED: predniSONE 20 MG TAB PO SCH (17:00)
[2018-03-20] MEDS: Atorvastatin Calcium 10 MG TAB PO SCH (20:58)
[2018-03-20] MEDS: Carvedilol 6.25 MG TAB PO SCH (20:58)
[2018-03-20] MEDS: cloNIDine 0.2 MG TAB PO SCH (20:59)
[2018-03-20] MEDS: Latanoprost 0.005% Ophth Soln 2.5 ml Bottle EA EYE SCH (20:59)
[2018-03-21 03:59] LABS: #Eosinphils 0.1 thou/uL (0.0-0.7); #Lymphocytes 0.8 thou/uL (1.20-3.40); #Monocytes 0.4 thou/uL (0.11-0.59); #Neutrophils 4.4 thou/uL (1.40-6.50); %Basophils 0.2 % (0.0-1.0); %Lymphocytes 13.9 % (21.0-51.0); %Monocytes 7.4 % (0.0-10.0); %Neutrophils 76.6 % (42.0-75.0); Hemoglobin 7.6 g/dL (12.0-16.0); Mean Corpuscular HGB CONC 31.3 g/dL (32.0-36.0); Mean Corpuscular Hemoglobin 31.6 pg (27.0-31.0); Mean Platelet Volume 6.9 fL (7.4-10.4); Platelet Count 437 thou/uL (130-400); RBC Distribution Width 16.2 % (11.5-14.5); Red Blood Cell (RBC) Count 2.41 mill/uL (4.20-5.40); White Blood Cell (WBC) Count 5.7 thou/uL (4.8-10.8)
[2018-03-21 04:20] LABS: ALT (SGPT) 20 U/L (8-55); AST (SGOT) 30 U/L (5-34); Albumin 3.2 g/dL (3.4-4.8); Alkaline Phosphatase 85 U/L (40-150); Anion Gap 17 mmol/L (10-20); BUN (Urea Nitrogen) 40 mg/dL (9.8-20.1); Bilirubin, Total 0.3 mg/dL (0.2-1.2); Calc. Creatinine Clearance 8 mL/min (70-130); Calcium 9.3 mg/dL (7.8-10.44); Carbon Dioxide 31 mmol/L (23-31); Cardiac Risk 3.5 (Less than 4.5); Chloride 95 mmol/L (98-107); Cholesterol 122 mg/dl (< 200 Desired); Estimated GFR-MDRD 7; Globulin 2.7 g/dL (2.4-3.5); Glucose 85 mg/dL (83-110); HDL Cholesterol 35 mg/dL (>60 Neg Risk); LDL Cholesterol, Calculated 68 mg/dL; Potassium 3.9 mmol/L (3.5-5.1); Protein, Total 5.9 g/dL (6.0-8.3); Sodium 139 mmol/L (136-145); Triglycerides 93 mg/dL (Less than 150)
--- NOTE | 2018-03-21 04:24 | CON ---
DATE OF CONSULTATION: 03/20/2018 CONSULTING PHYSICIAN: Hospitalist Service. IMPRESSION: Encephalopathy secondary to hypoxia, renal failure and congestive heart failure. PLAN: Supportive measures. HISTORY OF PRESENT ILLNESS: Ms. Curiel is an 88-year-old white female with a known history of renal failure on dialysis, who came in with progressive hypoxemia and shortness of breath. Apparently, her sats were down in the 70s. She became quite lethargic and was taken down for a CAT scan. It did not reveal any acute changes. Her pulses are around 60. Her sats are currently in the low 90s. I called to give a neurologic opinion. MEDICATIONS: As per chart. ALLERGIES: HYDRALAZINE. SOCIAL HISTORY: She is living at the halfway requires assistance for daily care. She is wheelchair bound. FAMILY HISTORY: Noncontributory. REVIEW OF SYSTEMS: Not obtainable. PHYSICAL EXAMINATION: VITAL SIGNS: Blood pressure 147/75, respirations 20, sats 93%. HEENT: Pupils equal and reactive. Conjunctivae clear. NEUROLOGIC: She is wearing a BiPAP mask. I could get her to open her eyes and follow commands. She appeared quite lethargic and went back to sleep quite readily. Her tone was symmetric. She had good balance wheel facer strength bilaterally. No abnormal movements were seen. LABORATORY: BNP is 6950, BUN 31, creatinine 4.58, hemoglobin 7.4, normal platelet count. SUMMARY: Elderly lady that is quite lethargic, but I do not see any acute neurologic issues. It is likely related to exhaustion as well as metabolic and hypoxic factors. MTDD
--- NOTE | 2018-03-21 04:29 | HP ---
DATE OF ADMISSION: 03/20/2018 PRIMARY CARE PHYSICIAN: Jerry Robles M.D. CHIEF COMPLAINT: Shortness of breath. HISTORY OF PRESENT ILLNESS: The patient resides at [facility], who was found to have a low grade temperature either late yesterday or early this morning became more and more short of breath. Her pulse oximetry was checked and was found to be in 60s to 70s, presented to the emergency department and was quickly stabilized on 4 liters nasal cannula with good relief of shortness of breath and tachypnea. Chest x-ray reviewed, pulmonary congestion. 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 Oakes on an outpatient basis and Dr. Castillo Cardiology. Prior echo in 07/2017, preserved ejection fraction of 55%-60%. The patient has struggled on an outpatient basis with her blood pressures being hypotensive, has had modifications to her home blood pressure medications, to be held on days of dialysis given on Wednesday, , Wednesday, Wednesday. She is most recently down dose to her amiodarone to 200 mg once daily on Wednesday, , Wednesday , Wednesday, with modest improvement to her systolic blood pressure, has had some difficulty getting some fluid off with her on an outpatient basis with dialysis in the last several months. Intervally at bedside of examination, the patient was breathing easily with good blood pressure, pulse, and pulse oximetry with a good waveform pattern, was only responding with right hand to command, not moving the left side, unarousable to voice and shaking the patient. Pupillary response was equal, pinpoint pupils bilaterally to light. The patient was unarousable given recent administration of Lovenox on top of the patient's baseline Eliquis, called code stroke following more vigorous stimulation with turning the patient, checking blood sugar, reassessing vital signs, and EKG. The patient was aroused, moved bilateral extremities equally, was able to be alert and oriented x2-3. Stat head CT showed no bleeding. NIH stroke score less than 6 on initial evaluation following code green is being called. EKG evaluation following with no changes from the emergency department with inverted T waves. Discussed with the patient and relatives at bedside reconfirm patient desires and long-term status to be a DNR/DNI. Given her hemodialysis history, she has already come to the decision prior to this hospitalization. The patient is quite somnolent, returns to sleep, resting comfortably on nasal cannula, unable to provide further review of systems. ALLERGIES: Include HYDRALAZINE. PAST MEDICAL HISTORY: The patient is status post aortic valve replacement, hypertension; gastroesophageal reflux disease with prior GI bleed; hyperlipidemia; diabetes, type 2; diastolic heart failure; end-stage renal disease; ANCA-associated vasculitis of the kidneys, rapidly progressive glomerulonephritis; osteoporosis; physical deconditioning; chronic anticoagulation. HOME MEDICATIONS: Include Sensipar 30 mg; Eliquis 2.5 mg b.i.d.; prednisone 20 mg daily; pantoprazole 40 mg; Remeron 15 mg; lorazepam 0.25 mg p.r.n. anxiety; 0.005% solution ophthalmic; carvedilol 6.25 mg 1 tab on Wednesday, , Wednesday, and Wednesday twice daily; lisinopril 10 mg 1 tab Wednesday, , Wednesday, and Wednesday; sertraline 50 mg daily; glipizide 2.5 mg daily; atorvastatin 10 mg daily; Epogen 7500 units q. weekly. PAST SURGICAL HISTORY: Include right arm fistula, established by Dr. Hagen; hysterectomy; double mastectomy; cataract surgery; aortic valve replacement; appendectomy; tonsillectomy. SOCIAL HISTORY: The patient is a nonsmoker, lives in assisted living, and his family members living in community. PHYSICAL EXAMINATION: VITAL SIGNS: On arrival to floor, temperature of 99.2, pulse is 71, respiratory rate of 20, oxygen saturation of 97% on 3 liters nasal cannula, blood pressure 128/90. GENERAL: Following green, the patient was able to be aroused. Her speech is slow, but understandable. HEENT: Head is normocephalic, atraumatic. Extraocular movements are intact. Pupils are equal, round, reactive and accommodate to light equally. Oral mucosa is moist. Nasal cannula in place. NECK: Supple. HEART: Regular rate and rhythm with occasional dropped beat. LUNGS: Diminished in bilateral bases. No wheezes, rhonchi or rales. ABDOMEN: Soft, nontender, positive bowel sounds throughout. EXTREMITIES: Lower extremities without cyanosis or edema. No signs of volume overload in extremities. AV fistula with positive bruit and thrill. NEUROLOGIC: The patient is moving arms equally. No current facial droop. Has a change in speech pattern from the patient's baseline on an outpatient basis; however, when she makes concerted effort, is not slurred. LABORATORY DATA AND IMAGING: White blood cell count of 8.4, hemoglobin of 7.4, platelet count of 468, neutrophil percent 82, INR of 1.9. Sodium 138, potassium of 3.7, CO2 of 29, BUN of 31, creatinine of 4.5, glucose of 108, calcium of 9.3, AST of 37, ALT of 15. BNP of 6950, albumin of 3.3. Troponins x3 is 0.99, 1.22, 1.06. Magnesium of 2.1, phosphorus of 3.5. Lactic acid of 0.9. Blood glucose checked at the time of code green is 95. Urinalysis, small protein, no blood, nitrites, leukocyte esterase, bacteria seen. Blood cultures pending. 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 Chest x-ray, pulmonary congestion consistent with heart failure. ASSESSMENT AND PLAN: Congestive heart failure exacerbation, diastolic; end- stage renal disease, on hemodialysis secondary to autoimmune disease; suspected pneumonia; transient altered awareness; diabetes, type 2; hypertension; gastroesophageal reflux disease. Discussed with Dr. Prince at bedside following green and agrees with a community-acquired pneumonia coverage with Rocephin and Levaquin renally dosed. Given the fact her clinical picture is that of diastolic heart failure since the patient has been unable to have adequate diuresis on an outpatient basis, we will undergo hemodialysis under the preview of Nephrology with likely more aggressive volume pull off since she will be monitored inpatient until lungs improved. Given code stroke called, we will follow through with Neurology consultation. However, no acute hemorrhagic component and the patient appears to be largely somnolent secondary to respiratory effort produce last night, unable to sleep. The patient is now much more comfortable on nasal cannula. We will have nursing staff titrate down. Follow up Cardiology recommendations on any further changes to the patient's outpatient regimen for beta davie and amiodarone. The patient's troponins have plateaued likely secondary to heart strain from mild hypoxia on outpatient basis secondary to acute on chronic respiratory failure from patient' s diastolic heart failure and end-stage renal disease. We will go ahead and follow through with echocardiogram at this point in time to see if the patient has had any change in systolic function. We will have nursing staff to do a bedside swallow evaluation prior to feeding the patient. EKG and code green status with continued inverted T waves in several leads, unchanged from emergency room evaluation. For now, we will continue therapeutic Lovenox renally dosed. Transitioning from the patient's home Eliquis given her history of GERD and prior gastrointestinal bleed, we will hopefully down titrate based on cardiology's recommendations, continuing patient's PPI coverage. Continuing prednisone, AILEEN inhibitor, beta davie from outpatient basis Discussed with family and patient at bedside regarding her code status, she desires to be a DNR /DNI at this point in time. Major goals included diuresis to make patient comfortable and then likely return back to [facility] as long as patient is stable. MTDD
[2018-03-21 05:42] LABS: Folate (Folic Acid) 9.7 ng/mL (7.0-31.4)
--- NOTE | 2018-03-21 07:40 | CON ---
DATE OF CONSULTATION: 03/20/2018 HISTORY OF PRESENT ILLNESS: The patient is an unfortunate 88-year-old woman, who presented with increasing dyspnea and altered mental status. The patient has a history of aortic valve replacement. She also has end-stage renal disease. The patient has been admitted several times with congestive heart failure, felt to be secondary to diastolic dysfunction. The patient presented with increasing dyspnea and confusion. The patient is unable to give a coherent history. PAST MEDICAL HISTORY: 1. Congestive heart failure. 2. History of aortic valve replacement. 3. Hypertension. 4. End-stage renal disease. 5. Bella's granulomatosis. 6. Diabetes mellitus. 7. History of atrial fibrillation. PAST SURGICAL HISTORY: Aortic valve replacement, hysterectomy, mastectomy, appendectomy, tonsillectomy. SOCIAL HISTORY: Nonsmoker. FAMILY HISTORY: There is a positive family history of heart disease. ALLERGIES: She is allergic to HYDRALAZINE. MEDICATIONS: See nursing list. PHYSICAL EXAMINATION: GENERAL: Somnolent woman in no acute distress. VITAL SIGNS: Blood pressure 147/75. NECK: Full. LUNGS: Crackles throughout both lung emmanuel. HEART: Regular rate and rhythm, normal S1 and S2, no murmurs. ABDOMEN: Nondistended. EXTREMITIES: Showed no edema. LABORATORY RESULTS: Sodium 138; potassium 3.7; chloride 96; bicarbonate 29; BUN 31; creatinine is 4.58; troponin 0.9, it was 1.2. BNP is 6950. Her INR was 1.9. White blood count 8.4, hemoglobin 7.4, hematocrit 23.7, platelets 468. Her chest x-ray revealed cardiomegaly with bilateral effusions. EKG revealed normal sinus rhythm with T-wave abnormality suggestive of ischemia. IMPRESSION: 1. Congestive heart failure, diastolic dysfunction. 2. Elevated troponin level, possibly due to demand ischemia or ischemic heart disease. 3. History of aortic valve replacement. 4. End-stage renal disease. 5. Hypertension. 6. Diabetes mellitus. 7. History of atrial fibrillation. 8. History of Bella's granulomatosis. The patient presents with congestive heart failure, most likely secondary to diastolic dysfunction. We will check the patient's echocardiogram. The patient 's prognosis is guarded. We will follow this patient with you through her hospitalization. SEAN
[2018-03-21] MEDS: Sevelamer Carbonate 800 MG TAB PO SCH ×3 (08:47→18:27)
--- NOTE | 2018-03-21 08:52 | PRG ---
DATE OF SERVICE: 03/21/2018 SERVICE: Pulmonary Medicine INTERVAL HISTORY: The patient is doing great from a respiratory standpoint. This morning I find her awake and alert. She is perfectly cooperative. Her mentation is actually quite clear. She denies any current chest pain, nausea, vomiting, fevers or chills. She did not have any events overnight. There were no complications. She actually really likes the CPAP unit. She indicates that it helped her get some consolidated sleep. PHYSICAL EXAMINATION: VITAL SIGNS: Afebrile, pulse 82, blood pressure 159/74, respirations 24, saturation 100% on CPAP wit h 21% FiO2. GENERAL: The patient is awake and alert, in no apparent distress. LUNGS: Excellent air entry. There is no prolonged expiratory phase. I do not appreciate crackles t adolfo. HEART: Normal rate, regular. ABDOMEN: Soft, nontender, nondistended. Bowel sounds are positive. MUSCULOSKELETAL: No cyanosis or clubbing. No pitting in the bilateral lower extremities. NEUROLOGIC: Grossly nonfocal. LABORATORY DATA: WBC 5.7, hemoglobin 7.6, platelets 437,000. Her neutrophil count is 76%. INR 1.9. Creatinine 5.45 and gently up trending. Basic metabolic profile and liver function studies are oth erwise unremarkable. B12 and folate fall within the normal limits. IMAGING: Echocardiogram demonstrates normal ejection fraction, moderately dilated left atrium, mildl y enlarged right atrium, diastolic dysfunction and a large pleural effusion. ASSESSMENT: 1. Acute hypoxic respiratory failure, resolved. 2. Volume overload. 3. End-stage renal disease. 4. Acute on chronic diastolic heart failure. 5. Pleural effusion. 6. Obstructive sleep apnea, horrendous. 7. Metabolic encephalopathy, resolved. DISCUSSION AND PLAN: The patient is doing fine on CPAP therapy. This needs to be continued for anot her 24 hours whenever the patient is sleeping. If she is awake, she has no need for this device. We will continue dialysis in order to get her close to euvolemia. In the outpatient setting, she requi res a polysomnogram. She actually has suggested that she would love to have a CPAP at home to help h er get consolidated sleep.
[2018-03-21] MEDS: predniSONE 20 MG TAB PO SCH (08:55)
[2018-03-21] MEDS: Amiodarone 200 MG TAB PO SCH (08:56)
[2018-03-21] MEDS ORDERED: Apixaban 2.5 MG TAB PO SCH (09:00)
[2018-03-21] MEDS: Lisinopril 20 MG TAB PO SCH (09:00)
[2018-03-21] MEDS ORDERED: Heparin 10,000 UNITS/ 10 ML VIAL ONE (09:00)
[2018-03-21] MEDS: Carvedilol 6.25 MG TAB PO SCH ×2 (09:00→20:22)
[2018-03-21] MEDS: cloNIDine 0.2 MG TAB PO SCH ×2 (09:00→20:22)
[2018-03-21] MEDS ORDERED: Enoxaparin Sodium 80 MG/0.8 ML SYRINGE SC SCH (09:00)
[2018-03-21] MEDS ORDERED: Epoetin (ESRD) 10,000 UNITS/ML VIAL SC SCH (10:00)
[2018-03-21] MEDS: Cinacalcet HCl 30 MG TAB PO SCH (12:30)
[2018-03-21] MEDS ORDERED: Lidocaine-Prilocaine 2.5% Cream 5 GM TUBE TOP SCH (13:15)
--- NOTE | 2018-03-21 13:36 | PDOC.CTH ---
<Ashley Trevino - Last Filed: 03/21/18 13:28> Cardiology Progress Note - Subjective The pt seen and examined. No overnight events. No cardiac complaints. Per family, she is doing well after she started wearing Cpap at HS. - Objective Vital Signs Temp Pulse Pulse Pulse Resp BP BP 03/21/18 10:50 98.9 F 77 16 03/21/18 10:04 73 76 157/74 H 163/77 H 03/21/18 07:42 03/21/18 07:22 98.1 F 82 24 H 03/21/18 04:00 97.5 F L 62 18 03/21/18 03:00 BP Pulse Ox Pulse Ox Pulse Ox 03/21/18 10:50 163/77 H 99 03/21/18 10:04 99 99 03/21/18 07:42 100 03/21/18 07:22 159/74 H 100 03/21/18 04:00 116/57 L 97 03/21/18 03:00 95 Weight 159 lb 3.2 oz 03/20/18 03/21/18 03/22/18 06:59 06:59 06:59 Intake Total 330 Balance 330 - Physical Examination General/Neuro: alert & oriented x3 Neck: no JVD present Lungs: other: (diminished at bases) Heart: RRR Abdomen: soft Extremities: other: (No edema) - Telemetry Telemetry Rhythm: SR 80s - Labs Result Diagrams: 03/21/18 03:33 03/21/18 03:33 Troponin/CKMB CK-MB (CK-2) 1.2 ng/mL (0-6.6) 03/20/18 08:11 Troponin I 1.060 ng/mL (< 0.028) H* 03/20/18 14:09 - Assessment/Plan 1. Acute on Chronic Diastolic HF - BNP > 6000 on 03/20/18. Stable with 2LNC. On Coreg, Lisinopril. 2. PNA - on Antibiotics by PCP 3. Prox. Afib - Remains in SR with Amiodarone 200mg qd. Will resume Eliquis 2.5mg BID at discharge. 4. Hyperlipidemia - on Lipitor 5. DM type 2 - on ACHS BG with SS insulin 6. Hx of Biothetic AV placement - stable by Echo. 7. Anemia - no changed 8. Sleep Apnea - stable with Cpap at HS 9. CKD with HD - managed by Dr Oakes. MAR reviewed * Echo on 03/20/18 showed EF 50-55%, diastolic dysfunction, mod dilated LA, mild ERA and ERV, bioprosthetic valve, mild AR, MR, and TR, and large Pleural effusion. Review of Systems - Review of Systems Constitutional: reports: weakness EENTM: reports: no symptoms reported Respiratory: reports: no symptoms reported, shortness of breath Cardiac (ROS): reports: no symptoms reported ABD/GI: reports: no symptoms reported : reports: no symptoms reported Musculoskeletal: reports: no symptoms reported Skin: reports: no symptoms reported <Bigg Castillo - Last Filed: 03/21/18 16:12> Cardiology Progress Note - Objective Vital Signs Temp Pulse Pulse Pulse Resp BP BP 03/21/18 15:10 97.6 F 75 16 03/21/18 10:50 98.9 F 77 16 03/21/18 10:04 73 76 157/74 H 163/77 H 03/21/18 07:42 03/21/18 07:22 98.1 F 82 24 H BP Pulse Ox Pulse Ox Pulse Ox 03/21/18 15:10 138/64 99 03/21/18 10:50 163/77 H 99 03/21/18 10:04 99 99 03/21/18 07:42 100 03/21/18 07:22 159/74 H 100 Weight 159 lb 3.2 oz 03/20/18 03/21/18 03/22/18 06:59 06:59 06:59 Intake Total 330 Balance 330 - Labs Result Diagrams: 03/21/18 03:33 03/21/18 03:33 Troponin/CKMB CK-MB (CK-2) 1.2 ng/mL (0-6.6) 03/20/18 08:11 Troponin I 1.060 ng/mL (< 0.028) H* 03/20/18 14:09 - Assessment/Plan pt. seen and eval. by me. I agree with the A/P by the [employer]PER. She is feeling better. Presently on dialysis. RRR at this time.
--- NOTE | 2018-03-21 13:41 | CON ---
DATE OF CONSULTATION: 03/21/2018 HISTORY OF PRESENT ILLNESS: Ms. Curiel is an 88-year-old white female with known history of ESRD - currently on maintenance hemodialysis. She was admitted for shortness of breath. The initial evalua tion is that she may have underlying CHF plus or minus pneumonia. She is being empirically treated w ith antibiotics. We are scheduling this patient for hemodialysis today. REVIEW OF SYSTEMS: Positive for shortness of breath, no chest pain,? of fever, no nausea, no vomitin g. Appetite and energy level is fair. No abdominal pain, no hematochezia, no melena, no hematemesis , no dysuria, no abdominal pain, no headache, no diplopia. MEDICATIONS: Tylenol 1000 mg q.6 hours p.r.n., Cordarone 200 mg daily, Lipitor 10 mg at bedtime, Cor eg 12.5 mg p.o. b.i.d., ceftriaxone 2 grams IV daily, Sensipar 30 mg tab once a day, clonidine 0.2 mg p.o. b.i.d., Colace 100 mg p.o. b.i.d., Pepcid 20 mg daily, Humalog sliding scale, Xalatan eyedrop a s directed, Levaquin 500 mg every 2 days, lisinopril 20 mg once a day, prednisone 20 mg q.a.m., Renve la 800 mg p.o. t.i.d. with meals. PAST MEDICAL HISTORY: 1. ESRD - currently he is on maintenance hemodialysis Wednesday, Wednesday, and Wednesday. 2. Hypertension. 3. Type 2 diabetes mellitus, controlled by diet. 4. History of positive immuno glomerulonephritis, status post immunotherapy. 5. Also, hyperlipidemia. 6. Status post CHF. 7. Decreased auditory acuity. 8. Breast cancer in remission. PAST SURGICAL HISTORY: 1. Status post renal biopsy. 2. Status post breast biopsy. 3. Status post eye surgery. 4. Status post bilateral mastectomy. 5. Status post aortic valve replacement. 6. Status post appendectomy. 7. Status post tonsillectomy. 8. Status post right IJ dialysis catheter placement. 9. Status post AV fistula. ALLERGIES: None. TRAUMA: None. IMMUNIZATIONS: Up to date. HOSPITALIZATIONS: Please see past medical history. FAMILY HISTORY: No ESRD. SOCIAL HISTORY: Patient originally from [place] and currently in a fpc at . She is wi dowed, no children. 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 No his tory of smoking, no alcohol intake, no drug abuse. Status post blood transfusion. PHYSICAL EXAMINATION: VITAL SIGNS: Blood pressure is 159/74, heart rate 82, respiratory rate 24, temperature 98.1, pulse o x 100%. GENERAL: Noted to be awake, comfortable, not in overt distress. SKIN: Adequate turgor. HEENT: She has slightly pale conjunctivae, anicteric sclerae. NECK: No neck mass, no carotid bruits, no JVD. CHEST: No deformities. LUNGS: Decreased breath sounds. HEART: Normal sinus rhythm. No murmur, no gallops, no rubs. ABDOMEN: Globular, soft, nontender. No masses. EXTREMITIES: No edema. MEDICATIONS: Of 03/21/2018, white count 5.7, hemoglobin 7.6. Sodium 139, potassium 3.9, chloride 95 , carbon dioxide 31, BUN 40, creatinine 5.45, glucose 85, calcium 9.3, AST 30, ALT 20, albumin 3.2. Chest x-ray of 03/20/[address] scan of the brain 03/20/2018 no acute intracranial abnormality. 03/20/2018, cardiac echo showed a n EF of 50%-55%. ASSESSMENT AND PLAN: 1. Congestive heart failure - The possibility of a diastolic dysfunction remains. We will max out f luid removal as tolerated by the patient with dialysis today. 2. End-stage renal disease, stable. We will continue current Wednesday, Wednesday, Wednesday hemodialysis regimen. Review of the last Kt/V suggests this patient is adequately dialyzed with the current dial ysis regimen. 3. Anemia. Resume back Epogen 10,000 units subcu every week. Thank you for the consult. We will continue to follow.
--- NOTE | 2018-03-21 13:48 | PRG ---
DATE OF SERVICE: 03/21/2018 HISTORY OF PRESENT ILLNESS: The patient is currently alert and oriented, back to her formal baseline following CPAP overnight and nasal cannula during the day, is being prepped for hemodialysis at the time of exam. The patient verbalized understanding regarding diastolic heart failure exacerbation. Reports comfortable breathing on nasal cannula at this point in time. She states that if she does ta lk for prolonged periods of time, she does feel a bit more winded, however, has no additional acute c omplaints. PHYSICAL EXAMINATION: VITAL SIGNS: Temperature of 98.9, pulse of 77, respiratory rate of 16, oxygen saturation at 99% on 2 liters nasal cannula, blood pressure 163/77. GENERAL: The patient is alert and oriented, in no acute distress. HEENT: Normocephalic, atraumatic. Extraocular movements are intact. Sclerae are clear. Oral mucos a is moist. NEUROLOGIC: Cranial nerves II-XII grossly intact. NECK: Supple. Nasal cannula in place. HEART: Regular rate and rhythm. No murmurs auscultated. LUNGS: Clear to auscultation bilaterally. Lower bases diminished, left greater than right on exam. ABDOMEN: Soft, nontender. Positive bowel sounds throughout. EXTREMITIES: Lower extremities without cyanosis or edema. Deep tendon reflexes 2+ upper and lower e xtremities bilaterally. Upper and lower extremity strength 5/5 bilaterally. LABORATORY DATA: Hemoglobin of 7.8, platelet count of 437,000, white blood cell count of 5.7, creati nine of 5.47, glucose of 85. Sodium of 139, potassium of 3.9, CO2 of 31, albumin of 3.2. B12 of 685 , folic acid of 9.7. Urinalysis normal other than small protein. Cultures, blood and urine negative at 24 hours growth. Echo showed diastolic dysfunction along with 55%-60% ejection fraction. ASSESSMENT AND PLAN: Acute respiratory failure secondary to acute on chronic diastolic heart failure , the patient has end-stage renal disease on hemodialysis, diabetes type 2, well controlled, elevated troponins, pauci-immune glomerulonephritis, status post aortic valve replacement, transient altered awareness. The patient's transient altered awareness triggering a code stroke yesterday appears to b e completely resolved following a good night's sleep on BiPAP. The patient is stable on nasal cannul a today, is currently at her baseline neurologically. CT of head showed no hemorrhagic component fol lowing Lovenox given on top of the patient's home Eliquis for her anticoagulation regarding her aorti c valve. The patient does have a history of gastrointestinal bleed. Continuing proton pump inhibito r. No current signs of bleeding at this point in time. Elevated troponin likely secondary to heart strain given exacerbation of diastolic heart failure. Given the patient's dialysis dependence, we wi ll likely have to undergo more aggressive dialysis over the next several days to resolve. We will fo llow up on recommendations from Cardiology, Nephrology and Pulmonary Critical Care. Given a code str evans was called, follow up with Neurology recommendations; however, I do not feel there would be like any further intervention. The patient reconfirmed DNR/DNI status on exam at bedside today.
[2018-03-21 15:30] LABS: HBSAB Concentration 1.04 mIU/mL; HBSAg Index 0.17 S/CO (0-0.99); Hep B Surf AB Non-Reactive (NonReactive); Hep B Surf Ag Non-Reactive S/CO (NonReactive)
[2018-03-21] MEDS: cefTRIAXone\\ROCEPHIN 2 GM in Sodium Chloride 0.9% 100 ML IVPB SCH (18:26)
[2018-03-21] MEDS: Atorvastatin Calcium 10 MG TAB PO SCH (20:22)
[2018-03-21] MEDS: Latanoprost 0.005% Ophth Soln 2.5 ml Bottle EA EYE SCH (21:08)
[2018-03-22 04:54] LABS: #Monocytes 0.5 thou/uL (0.11-0.59); #Neutrophils 4.7 thou/uL (1.40-6.50); %Basophils 0.2 % (0.0-1.0); %Eosinophils 0.6 % (0.0-10.0); %Lymphocytes 16.5 % (21.0-51.0); %Monocytes 7.6 % (0.0-10.0); %Neutrophils 75.1 % (42.0-75.0); Mean Corpuscular HGB CONC 32.1 g/dL (32.0-36.0); Mean Corpuscular Hemoglobin 32.3 pg (27.0-31.0); Mean Platelet Volume 7.1 fL (7.4-10.4); Platelet Count 472 thou/uL (130-400); RBC Distribution Width 16.8 % (11.5-14.5); Red Blood Cell (RBC) Count 2.49 mill/uL (4.20-5.40); White Blood Cell (WBC) Count 6.3 thou/uL (4.8-10.8)
[2018-03-22 05:34] LABS: ALT (SGPT) 22 U/L (8-55); AST (SGOT) 30 U/L (5-34); Albumin 3.3 g/dL (3.4-4.8); Alkaline Phosphatase 90 U/L (40-150); Anion Gap 16 mmol/L (10-20); BUN (Urea Nitrogen) 25 mg/dL (9.8-20.1); Bilirubin, Total 0.3 mg/dL (0.2-1.2); Calc. Creatinine Clearance 13 mL/min (70-130); Calcium 9.3 mg/dL (7.8-10.44); Carbon Dioxide 30 mmol/L (23-31); Chloride 99 mmol/L (98-107); Estimated GFR-MDRD 13; Globulin 2.7 g/dL (2.4-3.5); Glucose 103 mg/dL (83-110); Potassium 3.8 mmol/L (3.5-5.1); Sodium 141 mmol/L (136-145)
[2018-03-22] MEDS: predniSONE 20 MG TAB PO SCH (07:58)
[2018-03-22] MEDS: Sevelamer Carbonate 800 MG TAB PO SCH ×3 (07:58→18:26)
[2018-03-22] MEDS: Carvedilol 6.25 MG TAB PO SCH ×2 (07:59→21:01)
[2018-03-22] MEDS: cloNIDine 0.2 MG TAB PO SCH ×2 (07:59→21:51)
[2018-03-22] MEDS: Amiodarone 200 MG TAB PO SCH (07:59)
[2018-03-22] MEDS: Cinacalcet HCl 30 MG TAB PO SCH (07:59)
[2018-03-22] MEDS: Lisinopril 20 MG TAB PO SCH (08:00)
[2018-03-22] MEDS: Enoxaparin Sodium 80 MG/0.8 ML SYRINGE SC SCH (08:02)
--- NOTE | 2018-03-22 09:27 | PRG ---
DATE OF SERVICE: 03/22/2018 SUBJECTIVE: Ms. Curiel is an 88-year-old white female with ESRD admitted for shortness of breath. She was found to be in congestive heart failure. She underwent emergent hemodialysis yesterday with about 2.5 liter of fluid removed. Her breathing is much improved this morning. Review of the cardia c echo showed normal EF with diastolic dysfunction. Cardiology has been reconsulted. She is feeling better this morning. Shortness of breath is improved. PHYSICAL EXAMINATION: VITAL SIGNS: Blood pressure is 150/71, heart rate 60, respiratory rate 16, temperature 98.3, pulse o x is 97%. GENERAL: Awake, alert, comfortable, not in distress. SKIN: Adequate turgor. HEENT: She has slightly pale conjunctivae, anicteric sclerae. NECK: No neck mass, no carotid bruits, no JVD. CHEST: No deformities. LUNGS: Clear breath sounds. HEART: Normal sinus rhythm. No murmurs, no gallops, no rubs. ABDOMEN: Globular, soft, nontender, no masses. EXTREMITIES: No edema, no deformities. MEDICATIONS: Medications of 03/22/2018 was reviewed. LABORATORY DATA: Laboratories of 03/22/2018; white count 6.2, hemoglobin 8. Sodium 141, potassium 3 .8, chloride 99, carbon dioxide 30, BUN 25, creatinine 3.46, calcium 9.3, AST is 30, ALT is 22, album in 3.3. ASSESSMENT AND PLAN: 1. Shortness of breath - secondary to acute congestive heart failure - diastolic dysfunction much im proved with fluid removal with dialysis. Maxing out fluid removal with each dialysis session. 2. End-stage renal disease, stable. Continuing Wednesday, Wednesday and Wednesday hemodialysis. As previ ously mentioned, we are maxing out fluid removal with this patient. 3. Anemia. We have started this patient on weekly Epogen 10,000 units subcutaneously every week.
--- NOTE | 2018-03-22 13:31 | PDOC.CTH ---
<Ashley Trevino - Last Filed: 03/22/18 13:32> Cardiology Progress Note - Subjective The pt seen and examined. No overnight events. No cardiac complaints. She reported she walked to bathroom with assent without any cardiac complaints. - Objective Vital Signs Temp Pulse Resp BP BP BP Pulse Ox 03/22/18 11:45 98.3 F 58 L 20 94/44 L 98 03/22/18 11:30 60 85/42 L 03/22/18 11:00 94/38 L 03/22/18 10:30 70 103/47 L 03/22/18 10:12 64 76/40 L 03/22/18 10:00 67 98/40 L 03/22/18 09:00 72 112/56 L 03/22/18 08:00 150/71 H 03/22/18 07:59 150/71 H 03/22/18 07:45 97 03/22/18 07:26 98.3 F 60 16 149/64 H 97 03/22/18 04:00 97.7 F 60 18 103/53 L 98 Weight 153 lb 9.6 oz 03/21/18 03/22/18 03/23/18 06:59 06:59 06:59 Intake Total 330 240 Balance 330 240 - Physical Examination General/Neuro: alert & oriented x3 Neck: no JVD present Lungs: CTA (diminished at bases) Heart: RRR Abdomen: soft Extremities: other: (No edema) - Telemetry Telemetry Rhythm: SR - Labs Result Diagrams: 03/22/18 03:30 03/22/18 03:30 Troponin/CKMB CK-MB (CK-2) 1.2 ng/mL (0-6.6) 03/20/18 08:11 Troponin I 1.060 ng/mL (< 0.028) H* 03/20/18 14:09 - Assessment/Plan 1. Acute on Chronic Diastolic HF - BNP > 6000 on 03/20/18. Stable with 2LNC. On Coreg and Lisinopril. 2. PNA - on Antibiotics by PCP 3. Prox. Afib - Remains in SR with Amiodarone 200mg qd. Will resume Eliquis 2.5mg BID at discharge. 4. Hyperlipidemia - on Lipitor 5. DM type 2 - on ACHS BG with SS insulin 6. Hx of Biothetic AV placement - stable by Echo. 7. Anemia - no changed 8. Sleep Apnea - stable with Cpap at HS 9. CKD with HD - managed by Dr Oakes. MAR reviewed * Echo on 03/20/18 showed EF 50-55%, diastolic dysfunction, mod dilated LA, mild ERA and ERV, bioprosthetic valve, mild AR, MR, and TR, and large Pleural effusion. * Stress test in 11/2016 showed normal with EF > 70% (other hospital) Review of Systems - Review of Systems Constitutional: reports: no symptoms reported EENTM: reports: no symptoms reported Respiratory: reports: no symptoms reported Cardiac (ROS): reports: no symptoms reported ABD/GI: reports: no symptoms reported : reports: no symptoms reported Musculoskeletal: reports: no symptoms reported <Bigg Castillo - Last Filed: 03/22/18 13:57> Cardiology Progress Note - Objective Vital Signs Temp Pulse Resp BP BP BP Pulse Ox 03/22/18 11:45 98.3 F 58 L 20 94/44 L 98 03/22/18 11:30 60 85/42 L 03/22/18 11:00 94/38 L 03/22/18 10:30 70 103/47 L 03/22/18 10:12 64 76/40 L 03/22/18 10:00 67 98/40 L 03/22/18 09:00 72 112/56 L 03/22/18 08:00 150/71 H 03/22/18 07:59 150/71 H 03/22/18 07:45 97 03/22/18 07:26 98.3 F 60 16 149/64 H 97 03/22/18 04:00 97.7 F 60 18 103/53 L 98 Weight 153 lb 9.6 oz 03/21/18 03/22/18 03/23/18 06:59 06:59 06:59 Intake Total 330 240 Balance 330 240 - Labs Result Diagrams: 03/22/18 03:30 03/22/18 03:30 Troponin/CKMB CK-MB (CK-2) 1.2 ng/mL (0-6.6) 03/20/18 08:11 Troponin I 1.060 ng/mL (< 0.028) H* 03/20/18 14:09 - Assessment/Plan Pt. seen and eval. by me. She feels better. BP is low after morning meds. Chest clear. RRR. I agree with the A/P by the [employer]OOFER. May neeed to decrease anti-hypertensives.
--- NOTE | 2018-03-22 14:11 | PRG ---
DATE OF SERVICE: 03/22/2018 SERVICE: Pulmonary Medicine. INTERVAL HISTORY: The patient is doing great from a mentation and breathing standpoint. She denies any current chest pain, fevers, chills, shortness of breath, nausea or vomiting. She is actually up walking about the room under her own strength. There has been no interval change to her condition. PHYSICAL EXAMINATION: VITAL SIGNS: Afebrile, pulse 58, blood pressure 94/44, respirations 20, saturation 98% on room air. GENERAL: The patient is awake, alert, in no apparent distress. LUNGS: Excellent air entry. There is no prolonged expiratory phase or wheezing present. HEART: Normal rate, regular. ABDOMEN: Soft, nontender, nondistended. Bowel sounds are positive. MUSCULOSKELETAL: No cyanosis or clubbing. There is no pitting in the bilateral lower extremities. NEUROLOGIC: Grossly nonfocal. LABORATORY DATA: WBC 6.3, hemoglobin 8.0, platelets 472,000. INR 1.9. Creatinine 3.46. Basic meta bolic profile and liver function studies are otherwise unremarkable/stable. Urinalysis is unremarkab le. Blood cultures x2 and urine culture negative to date. ASSESSMENT: 1. Acute hypoxic respiratory failure, resolved. 2. Volume overload secondary to end-stage renal disease and diastolic heart failure, resolved. 3. Acute on chronic diastolic heart failure, currently euvolemic. 4. Pleural effusion. 5. Obstructive sleep apnea, horrendous DISCUSSION AND PLAN: The patient is doing absolutely wonderful with CPAP therapy. We will try to se t her up with this into the outpatient setting. She has already shown that she tolerates very high p ressures. She has not had any significant events on telemetry. As such, we will send her out on an auto titrating CPAP machine from 9-17 cm of water pressure. I have her return to clinic in the outid tient setting. Pulmonary will continue to follow, but from my perspective, she is stable for transit ion to the medical unit. I really do not think antibiotics are indicated, they can be discontinued.
[2018-03-22] MEDS: cefTRIAXone\\ROCEPHIN 2 GM in Sodium Chloride 0.9% 100 ML IVPB SCH (14:52)
--- NOTE | 2018-03-22 15:23 | PRG ---
DATE OF SERVICE: 03/22/2018 HISTORY OF PRESENT ILLNESS: The patient feels better energy than yesterday, is breathing better, is napping with nasal cannula rather than CPAP this afternoon , tolerating diet. Still having weakness and difficulty ambulating outpatient basis with a cane x20 to 30 feet, predominantly been on walker previously. The patient states she does not feel like she would be able to support herself via cane currently, has had a good response to dialysis yesterday. Plans per Nephrology to continue dialysis tomorrow. Plans per Pulmonary Critical Care to move the patient towards floor later this afternoon from ICU step down. The patient reports no other acute events or complaints. OBJECTIVE: VITAL SIGNS: Temperature 98.3, pulse 58, oxygen saturation 98% on room air, blood pressure of 94/44. GENERAL: The patient is alert and oriented, in no acute distress. HEENT: Normocephalic, atraumatic. Extraocular movements are intact. Sclerae are clear. Oral mucosa is moist. Nasal cannula in place. NECK: Supple. HEART: Regular rate and rhythm. No murmurs are auscultated at the time of exam. LUNGS: Clear to auscultation bilaterally. No rubs or wheezes. Left lower base has significantly improved in some quality. ABDOMEN: Soft, nontender, positive bowel sounds throughout. EXTREMITIES: Lower extremities without cyanosis or edema. NEUROLOGIC: Speech is normal. The patient is alert and oriented x3, no focal deficits. The patient was returned to her baseline regarding cognition. Able to carry on full conversation without respiratory distress. LABORATORY DATA: White blood cell count of 8.0, WBC of 6.3, platelet count of 472,000. Sodium of 141, potassium of 3.8, creatinine 3.46, glucose of 103, calcium of 9.3, albumin of 3.3. ASSESSMENT AND PLAN: Acute respiratory failure secondary to diastolic congestive heart failure exacerbation. The patient on end-stage renal disease requiring hemodialysis, regarding her blood sugars that are controlled on her diabetes type 2. We will continue to deescalate antibiotics and blood thinners , likely returning the patient back to her home Eliquis. The patient to have CPAP, BiPAP p.r.n. when sleeping. I expect the patient to do dialysis tomorrow and then potentially be able to progress towards return to assitive living following evaluation on at this point. If unable to participate in ambulation will need to look at SNF or inpt rehab MTDD
[2018-03-22] MEDS: Atorvastatin Calcium 10 MG TAB PO SCH (20:51)
[2018-03-22] MEDS: Latanoprost 0.005% Ophth Soln 2.5 ml Bottle EA EYE SCH (20:58)
[2018-03-23] MEDS: predniSONE 20 MG TAB PO SCH (08:33)
[2018-03-23] MEDS: Enoxaparin Sodium 80 MG/0.8 ML SYRINGE SC SCH (08:33)
[2018-03-23] MEDS: Sevelamer Carbonate 800 MG TAB PO SCH ×3 (08:33→17:27)
[2018-03-23] MEDS: Cinacalcet HCl 30 MG TAB PO SCH (08:33)
[2018-03-23] MEDS: Amiodarone 200 MG TAB PO SCH (08:34)
[2018-03-23] MEDS: cloNIDine 0.2 MG TAB PO SCH ×2 (08:34→21:04)
[2018-03-23] MEDS: Carvedilol 6.25 MG TAB PO SCH ×2 (08:34→21:05)
[2018-03-23] MEDS: Lisinopril 20 MG TAB PO SCH (08:35)
--- NOTE | 2018-03-23 13:34 | PRG ---
DATE OF SERVICE: 03/23/2018 SERVICE: Pulmonary Medicine. INTERVAL HISTORY: The patient is doing great from a respiratory standpoint. She is breathing comfor tably. She denies any current chest pain or fevers or chills. Her saturations are beautiful and she is tolerating dialysis just fine. Otherwise, there has been no interval change to her condition. PHYSICAL EXAMINATION: VITAL SIGNS: Afebrile, pulse 69, blood pressure 143/65, respirations 16, saturation 97% on room air. GENERAL: The patient is awake and alert, in no apparent distress. LUNGS: Excellent air entry. There is no prolonged expiratory phase, wheezing, rhonchi or crackles p resent. HEART: Normal rate, regular. ABDOMEN: Soft, nontender, nondistended. Bowel sounds are positive. MUSCULOSKELETAL: No cyanosis or clubbing. There is no pitting in the bilateral lower extremities. NEUROLOGIC: Grossly nonfocal. LABORATORY DATA: WBC 6.3, hemoglobin 8.0, platelets 472,000. INR 1.9. Blood sugar ranges from 102- 225. Urinalysis is unremarkable. Blood cultures and urine culture are negative to date. ASSESSMENT: 1. Acute hypoxic respiratory failure secondary to volume overload, resolved. 2. End-stage renal disease. 3. Acute on chronic diastolic heart failure, return to euvolemia. 4. Pleural effusion. 5. Obstructive sleep apnea, horrendous. DISCUSSION AND PLAN: We will try to set the patient up with an auto titrating CPAP in the outpatient setting. If we can do this, I will have her return to clinic in 6 weeks with a download. If we can not, I will get her into clinic as soon as possible to arrange for an outpatient polysomnogram. From my perspective, she is stable for transition to the medical unit or for discharge. Pulmonary will c ontinue to follow in this location, but when she arrives on the floor, she will have no further requi rements from my opinion and I will sign off.
--- NOTE | 2018-03-23 18:49 | PDOC.CTH ---
Cardiology Progress Note - Subjective The pt seen and examined. No overnight events. No cardiac complaints. - Objective Vital Signs Temp Pulse Resp BP BP Pulse Ox 03/23/18 15:10 99.0 F 79 18 142/68 H 99 03/23/18 10:40 97.6 F 69 16 143/65 H 97 03/23/18 08:35 120/55 L 03/23/18 08:34 120/55 L 03/23/18 07:45 97 03/23/18 07:14 97.6 F 70 18 137/62 97 Weight 152 lb 6.4 oz 03/22/18 03/23/18 03/24/18 06:59 06:59 06:59 Intake Total 240 945 Output Total 200 Balance 240 745 - Physical Examination General/Neuro: alert & oriented x3 Neck: no JVD present Lungs: CTA (diminished at bases ) Heart: RRR Abdomen: soft Extremities: other: (No edema) - Telemetry Telemetry Rhythm: SR - Labs Result Diagrams: 03/22/18 03:30 03/22/18 03:30 Troponin/CKMB CK-MB (CK-2) 1.2 ng/mL (0-6.6) 03/20/18 08:11 Troponin I 1.060 ng/mL (< 0.028) H* 03/20/18 14:09 - Assessment/Plan 1. Acute on Chronic Diastolic HF - BNP > 6000 on 03/20/18. Stable with 2LNC. On Coreg and Lisinopril. 2. PNA - on Antibiotics by PCP 3. Prox. Afib - Remains in SR with Amiodarone 200mg qd. Will resume Eliquis 2.5mg BID at discharge. 4. Hyperlipidemia - on Lipitor 5. DM type 2 - on ACHS BG with SS insulin 6. Hx of Biothetic AV placement - stable by Echo. 7. Anemia - no changed 8. Sleep Apnea - stable with Cpap at HS 9. CKD with HD - managed by Dr Oakes. 10. Hypotension - stable; MAR reviewed * Echo on 03/20/18 showed EF 50-55%, diastolic dysfunction, mod dilated LA, mild ERA and ERV, bioprosthetic valve, mild AR, MR, and TR, and large Pleural effusion. * Stress test in 11/2016 showed normal with EF > 70% (other hospital) * From Cardiac standpoint, the pt is stable to d/c. The pt will f/u with Dr Castillo' office within 2-4wks. Review of Systems - Review of Systems Constitutional: reports: no symptoms reported EENTM: reports: no symptoms reported Respiratory: reports: no symptoms reported Cardiac (ROS): reports: no symptoms reported ABD/GI: reports: no symptoms reported : reports: no symptoms reported Musculoskeletal: reports: no symptoms reported Skin: reports: no symptoms reported Neurological: reports: no symptoms reported
--- NOTE | 2018-03-23 20:10 | PRG ---
DATE OF SERVICE: 03/23/2018 SERVICE: Renal Medicine. SUBJECTIVE: Ms. Curiel is an 88-year-old white female her chronic cough may be related to pos sibly obstructive sleep apnea. No other complaints today. OBJECTIVE: VITAL SIGNS: Blood pressure is 142/68, heart rate 79, respiratory rate 18, temperature 99, pulse ox 99%. GENERAL: Noted to be awake, alert, comfortable, not in distress. SKIN: Adequate turgor. HEENT: She has slightly pale conjunctivae, anicteric sclerae. NECK: No neck mass, no carotid bruits, no JVD. CHEST: No deformities. LUNGS: Clear breath sounds. HEART: Normal sinus rhythm. No murmur, no gallops, no rubs. ABDOMEN: Globular, soft, nontender, no masses. EXTREMITIES: No edema. MEDICATIONS: Medications of 03/23/2018 reviewed. LABORATORY DATA: On 03/22/2018, white count 6.2, hemoglobin 8, hematocrit 25. On 03/22/2018, sodium 141, potassium 3.8, chloride 99, carbon dioxide 30, BUN 25, creatinine 3.46, gl ucose 103, calcium 9.3, AST 30, ALT 22, albumin 3.3. ASSESSMENT AND PLAN: 1. End-stage renal disease, stable. Tolerating current hemodialysis regimen, maxing out fluid remov al. We are removing about 2.5 L of fluid today. 2. Chronic cough - this patient has underlying obstructive sleep apnea. Pulmonary following. Offere d BiPAP as the patient seems to be refusing continuous BiPAP. 3. I agree with current management. .
[2018-03-23] MEDS: Atorvastatin Calcium 10 MG TAB PO SCH (21:05)
[2018-03-23] MEDS: Latanoprost 0.005% Ophth Soln 2.5 ml Bottle EA EYE SCH (21:05)
--- NOTE | 2018-03-23 23:49 | PRG ---
DATE OF SERVICE: 03/23/2018 HISTORY OF PRESENT ILLNESS: The patient is ambulating with assistance to restroom and back, normally uses a walker and just transitioned to a cane for up to a distance of 20-30 feet with physical thera py and out of water crust on an outpatient basis. The patient states she still feels somewhat weak a nd is eating well. There are no acute complaints, tolerating CPAP, BiPAP, first two nights struggle last night and took it off alf through the night, is stable on room air regarding her respiratory status this afternoon. PHYSICAL EXAMINATION: VITAL SIGNS: Temperature 99.0, pulse of 79, oxygen saturation 99% on room air, blood pressure 142/60 . GENERAL: The patient is alert and oriented, no acute distress. HEENT: Head is normocephalic, atraumatic. Extraocular movements are intact. Sclerae are clear. Or al mucosa is moist. NECK: Supple. HEART: Regular rate and rhythm. No murmurs auscultated. LUNGS: Clear to auscultation bilaterally. No rubs or wheezes. ABDOMEN: Soft, nontender, positive bowel sounds throughout. EXTREMITIES: Lower extremities without cyanosis or edema. NEUROLOGIC: The patient is alert and oriented x3, no focal deficits. Speech is normal. ASSESSMENT AND PLAN: Resolved acute respiratory failure, likely obstructive sleep apnea. Dr. Carter rodas has written prescription for AutoPap titration. Case management working to get home health come in and help set that up and this patient needs outpatient sleep study first. The patient appears large ly stable from a cardiopulmonary standpoint, completed hemodialysis today with 2 liters removed with stable blood pressure at this point in time in the afternoon and evening, likely transitioned home to assisted living with physical therapy and speech therapy. Follow up on an outpatient basis with [facility] continuation and continue pursuit of a CPAP or APAP on an outpatient basis. We will follow up on new further especially recommendations and prepare for discharge tomorrow.
[2018-03-24 04:43] LABS: #Eosinphils 0.1 thou/uL (0.0-0.7); #Lymphocytes 1.1 thou/uL (1.20-3.40); #Monocytes 0.5 thou/uL (0.11-0.59); %Basophils 0.3 % (0.0-1.0); %Eosinophils 1.2 % (0.0-10.0); %Lymphocytes 19.1 % (21.0-51.0); %Monocytes 8.9 % (0.0-10.0); %Neutrophils 70.5 % (42.0-75.0); Hemoglobin 8.7 g/dL (12.0-16.0); Mean Corpuscular HGB CONC 31.5 g/dL (32.0-36.0); Platelet Count 457 thou/uL (130-400); RBC Distribution Width 18.2 % (11.5-14.5); Red Blood Cell (RBC) Count 2.71 mill/uL (4.20-5.40); White Blood Cell (WBC) Count 5.7 thou/uL (4.8-10.8)
[2018-03-24 04:56] LABS: ALT (SGPT) 16 U/L (8-55); AST (SGOT) 15 U/L (5-34); Albumin 3.3 g/dL (3.4-4.8); Alkaline Phosphatase 91 U/L (40-150); Anion Gap 15 mmol/L (10-20); BUN (Urea Nitrogen) 25 mg/dL (9.8-20.1); Bilirubin, Total 0.3 mg/dL (0.2-1.2); Calc. Creatinine Clearance 12 mL/min (70-130); Calcium 9.4 mg/dL (7.8-10.44); Carbon Dioxide 29 mmol/L (23-31); Chloride 99 mmol/L (98-107); Estimated GFR-MDRD 12; Globulin 2.5 g/dL (2.4-3.5); Glucose 112 mg/dL (83-110); Potassium 3.7 mmol/L (3.5-5.1); Protein, Total 5.8 g/dL (6.0-8.3); Sodium 139 mmol/L (136-145)
[2018-03-24] MEDS: Sevelamer Carbonate 800 MG TAB PO SCH ×2 (09:04→12:30)
[2018-03-24] MEDS: Cinacalcet HCl 30 MG TAB PO SCH (09:04)
[2018-03-24] MEDS: Lisinopril 20 MG TAB PO SCH (09:04)
[2018-03-24] MEDS: cloNIDine 0.2 MG TAB PO SCH (09:07)
[2018-03-24] MEDS: Carvedilol 6.25 MG TAB PO SCH (09:07)
[2018-03-24] MEDS: Enoxaparin Sodium 80 MG/0.8 ML SYRINGE SC SCH (09:08)
[2018-03-24] MEDS: predniSONE 20 MG TAB PO SCH (09:08)
[2018-03-24] MEDS: Amiodarone 200 MG TAB PO SCH (09:08)
--- NOTE | 2018-03-24 10:23 | RAD ---
CHEST 2 VIEWS: HISTORY: Shortness of breath. COMPARISON: 07/12/17 study. Heart size is enlarged. Aortic stent is in place. There has been development of increased opacifica tion of the left base as compared to the prior exam. This probably represents effusion versus a pneu speedy consolidation. The right lung remains clear. Surgical clips are again noted over both axillar y regions. IMPRESSION: 1. Cardiomegaly. 2. Increasing opacification of the left base suggesting some effusion with atelectasis or infiltrate . POS: BEL
--- NOTE | 2018-03-24 12:33 | PDOC.CTH ---
Cardiology Progress Note - Subjective The pt seen and examined. No overnight events. No cardiac complaints. - Objective Vital Signs Temp Pulse Resp BP BP Pulse Ox 03/24/18 09:07 154/78 H 03/24/18 09:04 154/78 H 03/24/18 09:00 96 03/24/18 08:14 97.8 F 69 20 124/73 96 03/24/18 04:39 97.8 F 69 18 135/77 96 Weight 152 lb 6.4 oz 03/23/18 03/24/18 03/25/18 06:59 06:59 06:59 Intake Total 945 500 Output Total 200 2200 Balance 745 -1700 - Physical Examination General/Neuro: alert & oriented x3 Neck: no JVD present Lungs: CTA Heart: RRR Abdomen: soft Extremities: other: (No edema) - Telemetry Telemetry Rhythm: SR - Labs Result Diagrams: 03/24/18 04:18 03/24/18 04:18 Troponin/CKMB CK-MB (CK-2) 1.2 ng/mL (0-6.6) 03/20/18 08:11 Troponin I 1.060 ng/mL (< 0.028) H* 03/20/18 14:09 - Assessment/Plan 1. Acute on Chronic Diastolic HF - BNP > 6000 on 03/20/18. Stable with 2LNC. On Coreg and Lisinopril. 2. PNA - on Antibiotics by PCP 3. Prox. Afib - Remains in SR with Amiodarone 200mg qd. Will resume Eliquis 2.5mg BID at discharge. 4. Hyperlipidemia - on Lipitor 5. DM type 2 - on ACHS BG with SS insulin 6. Hx of Biothetic AV placement - stable by Echo. 7. Anemia - no changed 8. Sleep Apnea - stable with Cpap at HS 9. CKD with HD - managed by Dr Oakes. 10. Hypotension - stable; MAR reviewed * Echo on 03/20/18 showed EF 50-55%, diastolic dysfunction, mod dilated LA, mild ERA and ERV, bioprosthetic valve, mild AR, MR, and TR, and large Pleural effusion. * Stress test in 11/2016 showed normal with EF > 70% (other hospital) * From Cardiac standpoint, the pt is stable to d/c. The pt will f/u with Dr Castillo' office within 2-4wks. Review of Systems - Review of Systems Constitutional: reports: no symptoms reported EENTM: reports: no symptoms reported Respiratory: reports: no symptoms reported Cardiac (ROS): reports: no symptoms reported ABD/GI: reports: no symptoms reported : reports: no symptoms reported Musculoskeletal: reports: no symptoms reported
[2018-03-24 16:39] VITALS: BP 132/77; TEMP 97.6
--- NOTE | 2018-03-26 13:18 | EKG ---
Test Reason : SOB Blood Pressure : / mmHG Vent. Rate : 081 BPM Atrial Rate : 081 BPM P-R Int : 176 ms QRS Dur : 088 ms QT Int : 490 ms P-R-T Axes : 060 -23 107 degrees QTc Int : 569 ms Normal sinus rhythm Prolonged QT Abnormal ECG Confirmed by LATRICE YATES ([id number]), assistant production editor MARKO TAYLOR ([id number]) on 03/26/2018 1:18:45 PM Referred By: Confirmed By:LATRICE YATES
--- NOTE | 2018-03-26 13:20 | EKG ---
Test Reason : REPEAT EKG Blood Pressure : / mmHG Vent. Rate : 077 BPM Atrial Rate : 077 BPM P-R Int : 188 ms QRS Dur : 092 ms QT Int : 460 ms P-R-T Axes : 014 -23 126 degrees QTc Int : 520 ms Normal sinus rhythm T wave abnormality, consider anterolateral ischemia Prolonged QT Abnormal ECG New T wave inversion lateral leads from previous ECG on 02/17/2018 Confirmed by LATRICE YATES ([id number]), acquisition editor MARKO TAYLOR ([id number]) on 03/26/2018 1:20:15 PM Referred By: Confirmed By:LATRICE YATES
--- NOTE | 2018-03-28 09:24 | DIS ---
DATE OF ADMISSION: 03/20/2018 DATE OF DISCHARGE: 03/24/2018 PRIMARY CARE PHYSICIAN: Jerry Robles M.D. CHIEF COMPLAINT: Shortness of breath. HISTORY OF PRESENT ILLNESS: Vital signs in the patient's assisted living showed the patient to be in the 60 saturations. The patient improved with EMS transport to 70s on nasal cannula. The patient v erbalized regard for DNR/DNI was stabilized on nasal cannula face mask and BiPAP titrated down to chandler al cannula improved following hemodialysis. End-stage renal disease on hemodialysis every Wednesday, We , and Wednesday secondary to a history of pauci-immune rapidly progressing glomerulonephritis. T he patient has a diastolic heart failure, apparent acute exacerbation with fluid on chest x-ray and w orsening shortness of breath without a formal signs or symptoms of pneumonia on labs are fever profil es. Possible fever reported per sister living. No fevers throughout patient's hospital stay. On in patient, the patient placed in the step down ICU. Cardiology, Nephrology, Critical Care consulted. The patient had decreased level of consciousness temporarily with only moving right side, not moving left side and not able to talk. Code stroke was called; however, following continued respiratory res uscitation, the patient came around. Brain CT without hemorrhagic component following Lovenox on the patient's baseline Eliquis for her history of aortic valve replacement before she is on chronic anti coagulation. Neurology was consulted to follow up for code stroke, did not find any stroke-like symp toms. Echo was repeated given worsening volume overload symptoms. No change of systolic function fr july. Cardiology did not desire any further workup. The patient underwent dialysis x2 on and Wednesday with more aggressive diuresis. Some blood pressure medications were held per Cardio logy. The patient ambulated with assistance. Her baseline is with walker with physical therapy on o utpatient basis. The patient returned home to assisted living facility [facility]. DIET: Renal, cardiac, diabetic. DISCHARGE MEDICATIONS: Included amiodarone 200 mg 1 tab p.o. daily, not on dialysis days; Norvasc 5 mg 1 tab p.o. daily, not on nondialysis days; Eliquis 2.5 mg p.o. b.i.d.; Lipitor 10 mg p.o. daily; C oreg 12.5 mg b.i.d., not on days of dialysis, Sensipar, clonidine 0.1 mg b.i.d.; glipizide 5 mg; Angela savanah 15 mg p.o. at bedtime; pantoprazole 40 mg 1 tab p.o. daily; 40 mg of prednisone daily; Renvela t. i.d. CONSULTATIONS: Dr. Viramontes, Dr. Castillo, Dr. Prince, Dr. Oakes. DISCHARGE ACTIVITY: Up with assistance only, walker or assistive cane device. FOLLOWUP: Follow up with home health physical therapy. Follow up with myself, Dr. Jerry hansen 7 days. Follow up with Pulmonology in 3-4 weeks. Follow with Cardiology 3-4 weeks. Follow with N ephrology 3-4 weeks. Continue hemodialysis every Wednesday, Wednesday, and Wednesday.
== END 2018-03-24 16:53 | DRG 291 ==
LOC: ERS 07:29 → IMCU/EMU 10:55 → T4-A 03-23 20:59
PROVIDERS: ADMIT Family Medicine; ATTEND Family Medicine
PROC: 5A1D70Z Performance of Urinary Filtration, Intermittent, Less than 6 Hours Per Day (ICD-10-PCS; principal; 2018-03-21)
PROC: 5A09357 Assistance with Respiratory Ventilation, Less than 24 Consecutive Hours, Continuous Positive Airway Pressure (ICD-10-PCS; 2018-03-21)
DX: I50.33 Acute on chronic diastolic (congestive) heart failure (principal); J96.01 Acute respiratory failure with hypoxia; N18.6 End stage renal disease; G93.41 Metabolic encephalopathy; J18.9 Pneumonia, unspecified organism; I13.2 Hypertensive heart and chronic kidney disease with heart failure and with stage 5 chronic kidney disease, or end stage renal disease; I24.8 Other forms of acute ischemic heart disease; M31.31 Wegener's granulomatosis with renal involvement; Z99.2 Dependence on renal dialysis; I77.89 Other specified disorders of arteries and arterioles; I48.0 Paroxysmal atrial fibrillation; Z66 Do not resuscitate; G47.33 Obstructive sleep apnea (adult) (pediatric); D63.1 Anemia in chronic kidney disease; I95.9 Hypotension, unspecified; K21.9 Gastro-esophageal reflux disease without esophagitis; E11.22 Type 2 diabetes mellitus with diabetic chronic kidney disease; E78.5 Hyperlipidemia, unspecified; Z95.3 Presence of xenogenic heart valve; Z99.3 Dependence on wheelchair; Z88.8 Allergy status to other drugs, medicaments and biological substances
CPT/HCPCS: 36415; 36416; 51701; 70450; 71045; 71046; 80053; 80061; 81003; 81015; 82550; 82553; 82607; 82746; 83605; 83735; 83880; 84100; 84484; 85025; 85610; 85730; 86706; 87040; 87086; 87340; 90935; 93005; 93010; 93306; 93798; 94660; 96372; A4353; G0257; G8978-GP-CM; G8979-GP-CK; G8987-GO-CK; G8988-GO-CI; G8996-GN-CK; G8997-GN-CI; J0696; J1644; J1650; J1956; J7050; J7506; Q4081

== ENCOUNTER 2018-04-14 10:58 | Outpatient (CLI) | payer MEDICARE, OTHER ==
--- NOTE | 2018-04-14 12:56 | RAD ---
PA AND LATERAL CHEST: History: Dyspnea. Comparison: 03-24-18 FINDINGS: The heart size is borderline to slightly enlarged. There are atherosclerotic changes of the aorta. An aortic stent is again noted to be in place. The left sided pleural changes are reduced as compared t o the prior examination. Surgical clips in the axillary regions are again noted. There is an oblong shaped radiopaque density seen in a more subcarinal location. It is either partial ly calcified or has some sort of radiopaque material associated with it. It has not been seen on the previous exams. It may represent some sort of diverticular outpouching related to the esophagus. It s eems unlikely that it would be any type of calcification developing since it was not seen on the prio r examination. I believe it is probably related to the esophagus. IMPRESSION: 1. Interval improvement to the left sided pleural and parenchymal lung change. 2. Development of a radiopaque opacity, more in a subcarinal location. This radiopaque density was no t seen on the prior examination. I am not certain what is causing the radiopaque appearance although it is some type of radiopaque material. I would tend to favor this is related to some type of esophag eal diverticulum given the fact that it is not seen on the prior examination. I suspect this may be s ome type of retained secretions related to a some type of diverticulum. POS: GEREMIAS
== END 2018-04-14 10:59 | disposition home or self-care (01) ==
LOC: RAD 10:58
PROVIDERS: ATTEND Internal Medicine
DX: R06.00 Dyspnea, unspecified (principal)
CPT/HCPCS: 71046

== ENCOUNTER 2018-05-16 20:30 | Outpatient (CLI) | payer MEDICARE, OTHER | END 2018-05-16 20:31 | disposition home or self-care (01) | LOC: SLEEPLAB 20:30 | PROVIDERS: ATTEND Internal Medicine | DX: G47.33 Obstructive sleep apnea (adult) (pediatric) (principal); R53.83 Other fatigue; R06.83 Snoring; R35.1 Nocturia; E11.9 Type 2 diabetes mellitus without complications; G47.31 Primary central sleep apnea | CPT/HCPCS: 95811 ==

== ENCOUNTER 2018-05-29 13:41 | Observation (INO) | payer MEDICARE, OTHER ==
[2018-05-29 14:21] LABS: Hemoglobin 10.6 g/dL (12.0-16.0); Mean Corpuscular HGB CONC 31.9 g/dL (32.0-36.0); Mean Corpuscular Hemoglobin 33.7 pg (27.0-31.0); Mean Platelet Volume 8.8 fL (7.4-10.4); Platelet Count 120 thou/uL (130-400); RBC Distribution Width 17.3 % (11.5-14.5); Red Blood Cell (RBC) Count 3.14 mill/uL (4.20-5.40); White Blood Cell (WBC) Count 10.7 thou/uL (4.8-10.8)
[2018-05-29 14:38] LABS: #Lymphocytes 0.2 thou/uL (1.20-3.40); #Monocytes 0.3 thou/uL (0.11-0.59); #Neutrophils 10.3 thou/uL (1.40-6.50); %Eosinophils 0.1 % (0.0-10.0); %Monocytes 2.5 % (0.0-10.0); %Neutrophils 95.5 % (42.0-75.0); Anisocytosis SLIGHT = 6-15 cells (100X) (0-5/hpf); MDiff Complete? YES; PLT Morphology Comment Appears Decreased; Poikilocytosis SLIGHT = 6-15 cells (100X) (0-5/hpf); Polychromasia SLIGHT = 2-3 cells (100X) (0-2/hpf)
[2018-05-29 14:41] LABS: ALT (SGPT) 13 U/L (8-55); AST (SGOT) 11 U/L (5-34); Albumin 2.9 g/dL (3.4-4.8); Alkaline Phosphatase 66 U/L (40-150); Anion Gap 20 mmol/L (10-20); BUN (Urea Nitrogen) 87 mg/dL (9.8-20.1); Bilirubin, Total 0.7 mg/dL (0.2-1.2); CKMB 2.4 ng/mL (0-6.6); Calc. Creatinine Clearance 0 mL/min (70-130); Carbon Dioxide 22 mmol/L (23-31); Chloride 93 mmol/L (98-107); Estimated GFR-MDRD 7; Globulin 2.2 g/dL (2.4-3.5); Glucose 332 mg/dL (83-110); Potassium 4.3 mmol/L (3.5-5.1); Protein, Total 5.1 g/dL (6.0-8.3); Sodium 131 mmol/L (136-145); Troponin I 0.226 ng/mL (< 0.028)
--- NOTE | 2018-05-29 15:02 | RAD ---
UPRIGHT CHEST 1 VIEW: HISTORY: An 88-year-old with shortness of breath and generalized weakness. COMPARISON: 04/14/2018. FINDINGS: Surgical clips noted in both axilla. Monitor leads overlie the chest. Old granulomatous disease. A t least borderline cardiomegaly. NO confluent pneumonia, overt edema, or pleural effusion. Evidence for transcatheter aortic valve replacement. IMPRESSION: No acute intrathoracic disease. Transcatheter aortic valve replacement. Old granulomatous disease. Atherosclerosis of the aorta with ectasia. POS: DEANNEH
[2018-05-29 17:42] LABS: Troponin I 0.241 ng/mL (< 0.028)
[2018-05-29 18:53] VITALS: BMI 26.9
[2018-05-29] MEDS ORDERED: Lorazepam 0.5 MG TAB PO PRN (19:11)
[2018-05-29] MEDS ORDERED: Dextrose 5% in Water 1,000 ML IV PRN (19:13)
[2018-05-29] MEDS ORDERED: HumaLOG 300 UNITS/3 ML VIAL SC PRN (19:13)
[2018-05-29] MEDS ORDERED: Dextrose 50% Abboject 50 ML SYRINGE SLOW IVP PRN (19:13)
[2018-05-29] MEDS ORDERED: Bisacodyl 5 MG TAB PO PRN (19:14)
[2018-05-29] MEDS ORDERED: Benzonatate 100 MG CAP PO PRN (19:14)
[2018-05-29] MEDS ORDERED: Ondansetron PF 4 MG/2 ML Vial IVP PRN (19:14)
[2018-05-29] MEDS ORDERED: Labetalol HCl 100 MG/20 ML VIAL SLOW IVP PRN (19:14)
[2018-05-29] MEDS ORDERED: Cepastat Lozenges 1 LOZ PO PRN (19:14)
[2018-05-29] MEDS ORDERED: Morphine 4 MG/ML VIAL SLOW IVP PRN (19:14)
[2018-05-29] MEDS ORDERED: Senokot S 8.6-50 MG TAB PO PRN (19:14)
[2018-05-29] MEDS ORDERED: Acetaminophen 500 MG TAB PO PRN (19:14)
[2018-05-29] MEDS ORDERED: Calcium Carbonate 500 MG ChewTAB PO PRN (19:14)
[2018-05-29] MEDS ORDERED: HumaLOG 300 UNITS/3 ML VIAL SC SCH (19:30)
[2018-05-29] MEDS ORDERED: Carvedilol 25 MG TAB PO SCH (19:30)
[2018-05-29 20:23] LABS: Troponin I 0.229 ng/mL (< 0.028)
[2018-05-29] MEDS: Mirtazapine 15 MG TAB PO SCH (21:14)
[2018-05-29] MEDS: Apixaban 2.5 MG TAB PO SCH (21:14)
[2018-05-29] MEDS: Atorvastatin Calcium 10 MG TAB PO SCH (21:14)
[2018-05-29] MEDS: Latanoprost 0.005% Ophth Soln 2.5 ml Bottle EA EYE SCH (21:16)
[2018-05-29] MEDS: cloNIDine 0.1 MG TAB PO SCH (21:16)
[2018-05-29 22:23] LABS: Bilirubin Negative (Negative); Blood, Urine Trace (Negative); Clarity CLEAR (Clear); Glucose, Urine (Dipstick) 250 mg/dL (Negative); Leukocyte Negative (Negative); Nitrite Negative (Negative); Protein, Urine (Dipstick) 100 mg/dL (Neg-Trace); Specific Gravity, Urine 1.017 (1.002-1.036); Urobilinogen 0.2 mg/dL (0.2-1.0)
[2018-05-29 22:25] LABS: Bacteria/HPF None Seen HPF (None Seen); Hyaline Casts/LPF 0-3 HYALINE CAST LPF (0-3 Hyaline); Pathc Cast-AUWi Flag 0.43 (0-2.49); Squamous Epithelial 0-3 HPF (0-3); WBC/HPF 0-3 HPF (0-3); Yeast-AUWi Flag 55.5 (0-25.0)
[2018-05-29 22:31] LABS: Crystals/HPF None Seen HPF (Negative); Yeast-All Forms None Seen HPF (None Seen)
--- NOTE | 2018-05-30 01:23 | HP ---
DATE OF ADMISSION: 05/29/2018 CHIEF COMPLAINT: Shortness of breath. HISTORY OF PRESENT ILLNESS: Patient has a history now of end-stage renal disease going on one year on hemodialysis, managed by Dr. Oakes following vasculitis. Patient subsequently struggled with pneumonia periodically as well as shortness of breath. Cardiac function with ejection fraction remains intact. Patient continues to show signs of strain with periodic troponin leakage. Cardiology so far as elected to do watchful waiting with patient, continued on home medications included amiodarone, Norvasc, Eliquis, atorvastatin, carvedilol, clonidine. Patient is controlled on glipizide for diabetes to diet controlled. Attempts at control of her vasculitis was prednisone continued with coverage for renal complications with Sensipar and carbonate. Today patient's mood and sleep, patient is covered with mirtazapine. Regarding her GERD, pantoprazole, patient is with increased shortness of breath has been initiated on BiPAP under to the preview of Dr. Prince, which has helped shortness of breath following volume congestion in between patient's dialysis, which is Wednesday, Wednesday, and Wednesday. Patient resides at the [facility] assisted living currently has family ancillary nearby. Prior to that, she has been DNR/DNI. LABORATORY DATA: White blood cell count of 10.7, hemoglobin of 10.6, platelet count of 120. Troponins x2 0.226, 0.241. Albumin of 2.9. Glucose of 332. Sodium of 131, potassium of 4.3, CO2 of 22, creatinine of 5.94. Total bilirubin of 0.7. Chest x-ray, no acute cardiopulmonary events, status post aortic valve replacement. PAST MEDICAL HISTORY: Includes allergies of hydralazine, status post aortic valve replacement; hypertension; gastroesophageal reflux disease with prior GI bleed; remote hyperlipidemia; diabetes, type 2; diastolic heart failure; end- stage renal disease; p-ANCA associated vasculitis of kidneys; osteoporosis. PAST SURGICAL HISTORY: Right arm fistula formation by Dr. Hagen, hysterectomy , double mastectomy, cataract surgery, appendectomy, tonsillectomy. SOCIAL HISTORY: Patient is not smoking. Denies current alcohol use. PHYSICAL EXAMINATION: Vital signs in the emergency room, blood pressure 131/ 80, pulse 81, respiratory rate of 16, oxygen saturation 97% on room air, temperature 98.2. GENERAL: minimal respiratory effort noted with talking, no baseline distress, alert, fatigued HEENT: EOMI, sclera white, oral mucosa moist, neck supple CARDIAC: occasional PVC, but otherwise regular rate and rhythm, mechanical valve click auscultated RESPIRATORY: CTAB, no rubs or wheezes ABDOMEN: soft, nontender, + BS EXT: no cyanosis or edema, AV fistula of forearm with + bruit and thrill NERUO: A&O x 3, no focal deficits ASSESSMENT AND PLAN: Elevated troponin; shortness of breath; end-stage renal disease on hemodialysis; diastolic congestive heart failure, status post aortic valve replacement; hypertension; type 2 diabetes; gastroesophageal reflux disease. We will continue patient's home medications. Consult Dr. Oakes for continuation of dialysis. Emergency department was already notified him patient 's in the hospital. We will trend troponins, however, likely will not pursue any aggressive actions unless NSTEMI becomes obvious. Continue patient's BiPAP efforts to help push fluid out of patient's lungs to maintain stability covered with GI prophylaxis as well as deep venous thrombosis prophylaxis, which is covered by the patient's chronic anticoagulation for aortic valve. The patient has less shortness of breath following dialysis on Wednesday may look to discharge the patient. LUISD
--- NOTE | 2018-05-30 02:55 | CON ---
DATE OF CONSULTATION: 05/29/2018 HISTORY OF PRESENT ILLNESS: Ms. Curiel is an 88-year-old white female with known history of ESRD and admitted for generalized malaise. This was said to be associated with some degree of shortness of breath on exertion. She denies any associated chest pain. We are now being consulted for her maintenance hemodialysis. I did review her pulse oximetry and showed 93% on room air. Chest x-ray did not show any evidence of CHF. No infiltrate was noted. REVIEW OF SYSTEMS: Decreased energy level. Positive for malaise. Shortness of breath on exertion. No nausea, no vomiting, no diarrhea, no constipation. No fever or chills, no gross hematuria, no dysuria, no urinary frequency, no melena, no hematemesis, no hematochezia. Occasional joint pains. No syncopal episode. No productive cough, no sore throat. PAST MEDICAL HISTORY: Includes the following; 1. 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 2. GERD. 3. Type 2 diabetes mellitus, controlled by diet. 4. Longstanding hypertension. 5. Hyperlipidemia. Patient is status post CHF, breast cancer in remission; decreased auditory acuity. PAST SURGICAL HISTORY: 1. Status post renal biopsy. 2. Status post breast biopsy. 3. Status post right IJ dialysis catheter placement. 4. Status post AV fistula placement. 5. Status post appendectomy. 6. Status post transcatheter aortic valve replacement. 7. Status post bilateral mastectomy 8. Status post eye surgery. 9. Status post breast biopsy. 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 She is , no children. No history of smoking, no alcohol intake, no drug abuse, status post blood transfusion. FAMILY HISTORY: No family history of ESRD. ALLERGIES: None. TRAUMA: None. IMMUNIZATIONS: Up-to-date. HOSPITALIZATIONS: Please see past medical history. PHYSICAL EXAMINATION: VITAL SIGNS: Blood pressure is 158/69, heart rate 69, respiratory rate 20, temperature 97.6, pulse ox 96%. GENERAL: Awake, alert, not in overt distress. SKIN: Adequate turgor. HEENT: She has pinkish conjunctivae, anicteric sclerae. NECK: No neck mass, no carotid bruits, no JVD. CHEST: No deformities. LUNGS: Decreased breath sounds. HEART: Normal sinus rhythm. No murmur, no gallops or rubs. ABDOMEN: Globular, soft, nontender, no masses. EXTREMITIES: No edema, no deformities. NEUROLOGIC: Awake, oriented to 3 spheres. Moving all extremities. No tremors , no asterixis, no ataxia. MEDICATIONS: Of 05/29/2018, showed the following amiodarone 200 mg once a day, Norvasc 5 mg daily, Eliquis 2.5 mg b.i.d., Lipitor 10 mg q.p.m., Imuran 150 mg once a day, Tessalon 100 mg t.i.d. p.r.n., Tums 1000 mg every day, carvedilol 12.5 mg p.o. b.i.d., Coreg 12.5 mg b.i.d., Sensipar 30 mg daily, clonidine 0.1 mg p.o. b.i.d., Humalog sliding scale, Ativan 0.25 mg every day p.r.n., mirtazapine 15 mg at bedtime, morphine sulfate p.r.n., Protonix 40 mg tab once a day, prednisone 40 mg q.a.m., Renvela 800 mg p.o. t.i.d. with meals. Chest x- ray, no CHF or infiltrates. ASSESSMENT AND PLAN: 1. End-stage renal disease, stable. We will continue current Wednesday, Wednesday , Wednesday hemodialysis regimen. Fluid removal only as tolerated. Review of her last Kt/V in the outpatient suggests she is adequately dialyzed with the current dialysis regimen. 2. Generalized malaise/shortness of breath - unclear etiology. No evidence of congestive heart failure by chest x-ray. Please note that the last cardiac echo done on 03/20/2018 showed ejection fraction of 50% to 55%. We will consider checking a TSH with this patient. Please note, she is not anemic. She will continue her regular Epogen depending on what the H&H will be in the next few days. I have made arrangements for her to be dialyzed in a.m. 3. Borderline elevated troponin I, continue to observe. This may be related to her underlying chronic renal problem. SEAN
[2018-05-30 05:08] LABS: ALT (SGPT) 15 U/L (8-55); AST (SGOT) 12 U/L (5-34); Alkaline Phosphatase 61 U/L (40-150); Anion Gap 21 mmol/L (10-20); BUN (Urea Nitrogen) 105 mg/dL (9.8-20.1); Bilirubin, Total 0.6 mg/dL (0.2-1.2); Calc. Creatinine Clearance 7 mL/min (70-130); Calcium 9.6 mg/dL (7.8-10.44); Carbon Dioxide 21 mmol/L (23-31); Chloride 94 mmol/L (98-107); Estimated GFR-MDRD 6; Globulin 2.4 g/dL (2.4-3.5); Glucose 162 mg/dL (83-110); Magnesium 2.3 mg/dL (1.6-2.6); Potassium 4.4 mmol/L (3.5-5.1); Protein, Total 5.4 g/dL (6.0-8.3); Sodium 132 mmol/L (136-145)
[2018-05-30 05:11] LABS: Phosphorus 9.3 mg/dL (2.3-4.7)
[2018-05-30 05:32] LABS: Anisocytosis SLIGHT = 6-15 cells (100X) (0-5/hpf); Band 12 % (5-11); Hemoglobin 10.4 g/dL (12.0-16.0); Lymphocytes 6 % (21-51); MDiff Complete? YES; Mean Corpuscular Hemoglobin 34.6 pg (27.0-31.0); Mean Platelet Volume 8.7 fL (7.4-10.4); Neutrophil 82 % (42-75); PLT Morphology Comment Appears Decreased; Platelet Count 115 thou/uL (130-400); RBC Distribution Width 16.4 % (11.5-14.5); White Blood Cell (WBC) Count 10.3 thou/uL (4.8-10.8)
[2018-05-30] MEDS: Cinacalcet HCl 30 MG TAB PO SCH (07:57)
[2018-05-30] MEDS: Amiodarone 200 MG TAB PO SCH (07:57)
[2018-05-30] MEDS: azaTHIOprine 50 MG TAB PO SCH (07:57)
[2018-05-30] MEDS: predniSONE 20 MG TAB PO SCH (07:58)
[2018-05-30] MEDS ORDERED: Sevelamer Carbonate 800 MG TAB PO SCH (08:00)
[2018-05-30] MEDS: Amlodipine 5 MG TAB PO SCH (08:02)
[2018-05-30] MEDS: Carvedilol 25 MG TAB PO SCH ×2 (08:02→18:52)
[2018-05-30] MEDS: cloNIDine 0.1 MG TAB PO SCH ×2 (08:02→20:49)
[2018-05-30] MEDS ORDERED: Epoetin (ESRD) 20,000 UNITS/ML SC SCH (08:30)
--- NOTE | 2018-05-30 08:48 | PRG ---
DATE OF SERVICE: 05/30/2018 SUBJECTIVE: Ms. Curiel is an 88-year-old white female who was an end-stage renal disease patient an d was seen by the Renal Service for her maintenance hemodialysis. She was complaining of generalized malaise at that time. Her hemoglobin was noted at 10.4. The patient this morning states she is feeling better. She denies any chest pain or shortness of schuyler ath. PHYSICAL EXAMINATION: VITAL SIGNS: Blood pressure is noted at 221/82 - before blood pressure medications, heart rate 70, r espiratory rate 18, temperature 97.7, pulse ox 96%. GENERAL: Noted to be awake, comfortable, not in overt distress. SKIN: Adequate turgor. HEENT: She has pinkish conjunctivae, anicteric sclerae. NECK: No neck mass, no carotid bruits, no JVD. CHEST: No deformities. LUNGS: Clear breath sounds. HEART: Normal sinus rhythm. No murmur, no gallops, no rubs. ABDOMEN: Globular, soft, nontender, no masses. EXTREMITIES: No edema, no deformities. MEDICATIONS: Of 05/30/2018 was reviewed. LABORATORY DATA: Of 05/30/2018, sodium 132, potassium 4.4, chloride 94, carbon dioxide 21, BUN 105, creatinine 6.29, calcium 9.6, phosphorus is 9.3, AST 12, ALT 15, albumin 3.0. White count 10, hemogl obin 10.4. ASSESSMENT AND PLAN: 1. Hyperphosphatemia. We will probably increase Renvela to 2 tablets t.i.d. with meals. 2. Anemia. Resume back weekly Epogen of 7500 units subcutaneously every week. 3. End-stage renal disease, I will schedule the patient for hemodialysis today. We will do a 3.5 ho ur hemodialysis run with this patient with fluid removal as tolerated. 4. Generalized malaise - check TSH.
[2018-05-30 09:25] LABS: HBSAg Index 0.23 S/CO (0-0.99); Hep B Surf Ag Non-Reactive S/CO (NonReactive)
[2018-05-30 09:52] LABS: Hemoglobin 10.5 g/dL (12.0-16.0); Platelet Count 128 thou/uL (130-400)
[2018-05-30] MEDS: Sevelamer Carbonate 800 MG TAB PO SCH ×2 (12:14→18:52)
[2018-05-30] MEDS: Apixaban 2.5 MG TAB PO SCH ×2 (12:36→20:50)
[2018-05-30 13:08] LABS: Free T4 (Free Thyroxine) 1.08 ng/dL (0.70-1.48); Thyroid Stimulating Hormone 0.2555 uIU/mL (0.35-4.94)
--- NOTE | 2018-05-30 13:34 | PRG ---
DATE OF SERVICE: 05/30/2018 SUBJECTVE: The patient reports she felt somewhat better after some sleep last night with a CPAP; how ever, still feels weak and difficulty with transfers, especially following hemodialysis, which is her current baseline; however, the patient has not had any reported fevers. Verbalized understanding re garding largely clean urine, evaluated yesterday. Verbalized understanding regarding high potassium. Dr. Oakes feels the patient needs thyroid rechecked regarding her malaise, noted Macrocytic anemia. Patient will be restarted on Epogen with Dr. Oakes during dialysis. VITAL SIGNS: Temperature of 98, pulse of 66, respiratory rate of 20, oxygen saturation 97% on room a ir, blood pressure 170/75. MCV of 105. LABORATORY DATA: Hemoglobin 10.4. WBCs 10.3. TSH 0.23, albumin of 3.0, phosphorus of 9.3, glucose 162-295, creatinine 6.29, potassium 4.4. Sodium 132. This is predialysis. Urine: 1.01 specific gr avity, negative ketones, trace blood; however, positive on microscopy. No white blood cells, no bact eria, no nitrites. Hepatitis B antigen nonreactive. PHYSICAL EXAMINATION: GENERAL: The patient is alert after being woken up from sleep, oriented, in no acute distress. HEENT: Head is normocephalic, atraumatic. Extraocular movements are intact. Sclerae are white. Or al mucosa is moist. NECK: Supple. HEART: Regular rate and rhythm. LUNGS: Clear to auscultation bilaterally. ABDOMEN: Soft, nontender, positive bowel sounds throughout. EXTREMITIES: Lower extremities without cyanosis or edema. NEUROLOGIC: The patient alert and oriented x3, no focal deficits. Speech is normal. She states she is at her baseline fatigue this morning. ASSESSMENT AND PLAN: 1. Elevated troponins and end-stage renal disease, on hemodialysis. 2. Shortness of breath. 3. Diabetes, type 2. 4. Hypertension. 5. Gastrointestinal reflux disease. 6. Status post aortic valve replacement. 7. Anemia, macrocytic, and of chronic disease. 8. Hyperphosphatemia. 9. Low TSH. Largely feel troponin secondary to renal dysfunction and mild chronic strain on the patient with dial ysis and patient's heart valve, diastolic congestive heart failure. No acute congestive heart failur e exacerbation. Patient continued on CPAP for obstructive apnea; continued on sliding scale insulin for diabetes, type 2; continued on all home blood pressure medications along with p.r.n. clonidine an d labetalol. Continue on anticoagulation for aortic valve replacement. Assessing folic acid and B12 . Per Dr. Oakes's note, he will restart Epogen and increase PhosLo with meals to address potassium. G iven low TSH, it would be reasonable to look at further thyroid studies and possible thyroid ultrasou nd. We will see if physical therapy can mobilize the patient after dialysis today.
--- NOTE | 2018-05-30 20:37 | ULT ---
THYROID ULTRASOUND: HISTORY: Low TSH. TECHNIQUE: Real-time imaging of the right and left lobes of the gland was performed. FINDINGS: The right lobe measures 1.4 x 1.8 x 4.4 cm, and the left lobe 1.7 x 2.1 x 4.6 cm. Bilateral thyroid nodules are identified. These nodules are somewhat indistinct and some are complex and cystic in nirali ure. These nodules appear less than 1 cm in size. There is a slightly indistinct area of decreased echogenicity in the lower pole of the right lobe of the thyroid, but this is not a definite discrete nodule. IMPRESSION: Heterogeneous gland with bilateral small thyroid nodules. POS: [facility]
[2018-05-30] MEDS: Mirtazapine 15 MG TAB PO SCH (20:49)
[2018-05-30] MEDS: Atorvastatin Calcium 10 MG TAB PO SCH (20:50)
[2018-05-30] MEDS: Latanoprost 0.005% Ophth Soln 2.5 ml Bottle EA EYE SCH (20:50)
[2018-05-31 05:26] LABS: Folate (Folic Acid) 15.2 ng/mL (7.0-31.4)
[2018-05-31] MEDS ORDERED: Levothyroxine Sodium 25 MCG TAB PO SCH (08:00)
[2018-05-31 08:02] VITALS: BP 143/67; TEMP 97.4
[2018-05-31] MEDS: predniSONE 20 MG TAB PO SCH (08:40)
[2018-05-31] MEDS: Carvedilol 25 MG TAB PO SCH (08:40)
[2018-05-31] MEDS: Apixaban 2.5 MG TAB PO SCH (08:41)
[2018-05-31] MEDS: Amlodipine 5 MG TAB PO SCH (08:41)
[2018-05-31] MEDS: azaTHIOprine 50 MG TAB PO SCH (08:41)
[2018-05-31] MEDS: Sevelamer Carbonate 800 MG TAB PO SCH (08:41)
[2018-05-31] MEDS: Amiodarone 200 MG TAB PO SCH (08:41)
[2018-05-31] MEDS: cloNIDine 0.1 MG TAB PO SCH (08:42)
[2018-05-31] MEDS: Cinacalcet HCl 30 MG TAB PO SCH (08:42)
[2018-06-01] MEDS ORDERED: Levothyroxine Sodium 25 MCG TAB PO SCH (06:00)
--- NOTE | 2018-06-01 09:56 | DIS ---
DATE OF ADMISSION: 05/29/2018 DATE OF DISCHARGE: 05/31/2018 CHIEF COMPLAINT: Fatigue and shortness of breath. HISTORY OF PRESENT ILLNESS: The patient has had ANCA-positive vasculitis causing end-stage renal disease over the course of the last 18 months. It has been stable on hemodialysis, governed by Dr. Oakes. Stable diabetes. Stable diastolic congestive heart failure and hypertension. However, the patient subsequently had an increase in blood sugars over the last 72 hours as well as worsening shortness of breath. No formal chest pain, however. The patient was normally able to perform transfers and ambulate short distances with walker. The patient resides in an assisted living, [facility]. However, she was unable to get out of bed in the last 24 hours prior to hospitalization, which is uncharacteristic for her on an off day from dialysis. The patient does require much greater assistance with ambulation and transfers postdialysis Wednesday, Wednesday, and Wednesday. The patient status post aortic valve replacement and is compliant with her Eliquis for anticoagulation. The patient states she felt fine approximately 2 weeks ago, it was actually the best she has felt in the last 18 months prior to this downtrend. Troponins were indeterminately elevated; however, without any EKG changes. The patient has had a prior echo with preserved ejection fraction in the last year here and has been followed by Cardiology without any desire for a cardiac catheterization or a stress test. She was felt previously to have elevated troponin secondary to end-stage renal disease predominantly and heart strain. The patient in the last 3 to 6 months has been titrated by Dr. Prince on a CPAP. She uses it nightly and that has helped clear up her lungs from some pulmonary congestion with diastolic CHF. The patient is not a good candidate for diuresis and remains so secondary to end-stage renal disease status; however, does make some urine. Urinalysis was checked and the patient did not have a UTI. The lungs were clear and there was no pneumonia on chest x-ray. Following laboratory evaluation of thyroid, B12, folic acid, and vitamins were good. The patient was found to have worsening anemia and Dr. Oakes started the patient back on Epogen. The patient had elevated phosphate, which had increased her phosphorous binding agent orally. The patient's blood sugars were controlled with sliding scale insulin; Sulfonauria held while inpatient. Urine culture was negative. TSH was found to be 0.23 with T4 of 1.08 and T3 of 1.31. Folic acid of 15.2 and vitamin B12 of 1800. Hepatitis B surface antigen was negative. Ultrasound of thyroid was performed and found multiple nodules subcentimeter. This was discussed with the patient and that she will likely need a thyroidectomy or a partial thyroidectomy to fully characterize these subcentimeter nodules and likely a needle biopsy would not be adequate. She was amenable to outpatient followup. She did feel better prior to discharge following dialysis on Wednesday. Vital signs stabilized postdialysis day on Wednesday here and the patient was discharged back to assisted living with home health and continuation of physical therapy and nursing. DISCHARGE MEDICATIONS: Include: 1. Albuterol 2 puffs p.r.n. shortness of breath or cough. 2. Amiodarone 200 mg daily. 3. Amlodipine 5 mg b.i.d. 4. Eliquis 2.5 mg b.i.d. 5. Lipitor 10 mg. 6. Imuran 150 mg daily. 7. Coreg 12.5 mg b.i.d. 8. Sensipar 30 mg daily. 9. Clonidine 0.1 mg p.o. b.i.d., p.r.n. blood pressure elevation above 160 systolic. 10. The patient is compliant with monthly B12 injections and daily 1 mg folic acid replacement. 11. The patient has 0.25 mg Ativan p.r.n. agitation. 12. Remeron qhs. 13. Zoloft 50 mg daily. 14. Pantoprazole 40 mg daily. 15. Prednisone 40 mg daily. 16. Bactrim 1 tablet daily with dialysis, Wednesday, Wednesday, and Wednesday. 17. Epogen 750 units subcutaneously with dialysis. 18. Levothyroxine, new medication, 25 mcg daily. 19. Renvela increased to 1600 mg t.i.d. DISCHARGE CONDITION: Fair. DISCHARGE DIET: Heart healthy and carb controlled. DISCHARGE ACTIVITY: Up with assistance only. DISCHARGE FOLLOWUP: With myself, Dr. Jerry Robles, within 1 to 2 weeks. Follow up with Dr. Oakes within the [facility]. Continue dialysis Wednesday, Wednesday, Wednesday. Follow up with outpatient referral for ENT for evaluation for any consideration of biopsy and second opinion on nodules w/iodine uptake study prior to surgery; however, given the patient's likely instability and fragility, a more direct approach may be needed rather than watchful waiting. We will do monthly checks on TSH, free T4, and free T3 for the time being with the patient's home health. Job ID: [id number] MTDD
[2018-06-02 18:16] LABS: EliA Thy New Method **** NEW METHOD ****; Thyroglobulin Antibody Less than 12.0 IU/mL (<40 Normal); Thyroid Peroxidase IgG Ab Less than 4.0 IU/mL (<25 Normal)
--- NOTE | 2018-06-04 16:47 | EKG ---
Test Reason : Blood Pressure : / mmHG Vent. Rate : 078 BPM Atrial Rate : 078 BPM P-R Int : 146 ms QRS Dur : 092 ms QT Int : 410 ms P-R-T Axes : 054 -22 064 degrees QTc Int : 467 ms Sinus rhythm with Premature atrial complexes Moderate voltage criteria for LVH, may be normal variant Borderline ECG Confirmed by GLORIA MITCHELL, WHITLEY ([id number]), school photograph editor BOOM MEI ([id number]) on 06/04/2018 4:46:48 PM Referred By: Confirmed By:WHITLEY CASTRO MD
== END 2018-05-31 10:16 ==
LOC: ERS 13:41 → ERHOLD 16:02 → 2SW 18:38
PROVIDERS: ADMIT Family Medicine; ATTEND Family Medicine
DX: R06.02 Shortness of breath (principal); R53.83 Other fatigue; I77.6 Arteritis, unspecified; I13.2 Hypertensive heart and chronic kidney disease with heart failure and with stage 5 chronic kidney disease, or end stage renal disease; E11.22 Type 2 diabetes mellitus with diabetic chronic kidney disease; N18.6 End stage renal disease; I50.30 Unspecified diastolic (congestive) heart failure; D63.1 Anemia in chronic kidney disease; K21.9 Gastro-esophageal reflux disease without esophagitis; E78.5 Hyperlipidemia, unspecified; M81.0 Age-related osteoporosis without current pathological fracture; E83.39 Other disorders of phosphorus metabolism; Z79.01 Long term (current) use of anticoagulants; Z79.52 Long term (current) use of systemic steroids; Z79.84 Long term (current) use of oral hypoglycemic drugs; Z79.899 Other long term (current) drug therapy; Z88.8 Allergy status to other drugs, medicaments and biological substances; Z99.2 Dependence on renal dialysis; Z95.2 Presence of prosthetic heart valve; Z66 Do not resuscitate
CPT/HCPCS: 71045; 76536; 80053; 81001; 82553; 82565; 82607; 82746; 82962 ×3; 83735; 84100; 84439; 84481; 84484 ×2; 85014; 85018; 85025; 85049; 86376; 86800; 87086; 87340; 93005; 94760; 97139; 97530; 99285; G0378 ×2; G8978; G8979; Q4081; 36415; 36416; 84443; 90935; G0257; J7500; J7506

== ENCOUNTER 2018-06-19 14:44 | Emergency (ER) | payer MEDICARE, OTHER ==
[2018-06-19 15:54] LABS: #Lymphocytes 0.4 thou/uL (1.20-3.40); #Monocytes 0.1 thou/uL (0.11-0.59); #Neutrophils 9.4 thou/uL (1.40-6.50); %Eosinophils 0.1 % (0.0-10.0); %Lymphocytes 3.6 % (21.0-51.0); %Monocytes 0.9 % (0.0-10.0); %Neutrophils 95.4 % (42.0-75.0); Hemoglobin 10.7 g/dL (12.0-16.0); Mean Corpuscular HGB CONC 31.7 g/dL (32.0-36.0); Mean Corpuscular Hemoglobin 34.2 pg (27.0-31.0); Mean Platelet Volume 9.3 fL (7.4-10.4); Platelet Count 151 thou/uL (130-400); RBC Distribution Width 16.4 % (11.5-14.5); Red Blood Cell (RBC) Count 3.12 mill/uL (4.20-5.40); White Blood Cell (WBC) Count 9.8 thou/uL (4.8-10.8)
[2018-06-19 16:16] LABS: Magnesium 2.1 mg/dL (1.6-2.6); Phosphorus 5.6 mg/dL (2.3-4.7)
[2018-06-19 16:19] LABS: ALT (SGPT) 11 U/L (8-55); AST (SGOT) 11 U/L (5-34); Albumin 3.1 g/dL (3.4-4.8); Alkaline Phosphatase 79 U/L (40-150); Anion Gap 18 mmol/L (10-20); BUN (Urea Nitrogen) 68 mg/dL (9.8-20.1); Bilirubin, Total 0.6 mg/dL (0.2-1.2); Calc. Creatinine Clearance 0 mL/min (70-130); Calcium 9.1 mg/dL (7.8-10.44); Carbon Dioxide 28 mmol/L (23-31); Chloride 91 mmol/L (98-107); Estimated GFR-MDRD 7; Globulin 2.1 g/dL (2.4-3.5); Glucose 475 mg/dL (83-110); Potassium 4.7 mmol/L (3.5-5.1); Protein, Total 5.2 g/dL (6.0-8.3); Sodium 132 mmol/L (136-145)
--- NOTE | 2018-06-19 16:36 | RAD ---
RADIOGRAPH CHEST 1 VIEW: Date: 06-19-18 Time: 3:46 P.M. HISTORY: 88-year-old female with dyspnea and abnormal breath sounds. COMPARISON: 05-29-18 FINDINGS: This is a limited evaluation because of hypoinflated lungs, as was the case previously. There is mild blunting of the left lateral costophrenic angle, nonspecific. Surgical clips at the bilateral axilla e or chest moreau. Diffusely prominent interstitial markings. No consolidation or pneumothorax identif ied. No major interval change. IMPRESSION: 1. Prominent interstitial markings and hypoinflated lungs. 2. Small left pleural effusions versus left pleural thickening. 3. Post-surgical changes at bilateral chest wall or axilla. 4. No interval change since 05-29-18. CATIE POS: [facility]
[2018-06-19 16:44] LABS: CKMB 2.1 ng/mL (0-6.6)
== END 2018-06-19 19:45 ==
LOC: ERS 14:44
DX: I12.0 Hypertensive chronic kidney disease with stage 5 chronic kidney disease or end stage renal disease (principal); E11.22 Type 2 diabetes mellitus with diabetic chronic kidney disease; N18.6 End stage renal disease; K21.9 Gastro-esophageal reflux disease without esophagitis; E78.5 Hyperlipidemia, unspecified; Z79.899 Other long term (current) drug therapy; Z79.84 Long term (current) use of oral hypoglycemic drugs; Z79.01 Long term (current) use of anticoagulants; Z99.2 Dependence on renal dialysis
CPT/HCPCS: 36415; 71045; 80053; 82553; 83735; 83880; 84100; 84484; 85025; 93005

== ENCOUNTER 2018-07-13 14:11 | Emergency (ER) | payer MEDICARE, OTHER ==
[~2018-07-13 14:11] MED LIST: ISOVUE-370 76%-LOCM 1 ML ONE
[2018-07-13 15:16] LABS: #Eosinphils 0.1 thou/uL (0.0-0.7); #Lymphocytes 0.3 thou/uL (1.20-3.40); #Monocytes 0.2 thou/uL (0.11-0.59); #Neutrophils 7.9 thou/uL (1.40-6.50); %Basophils 0.1 % (0.0-1.0); %Eosinophils 0.9 % (0.0-10.0); %Lymphocytes 3.6 % (21.0-51.0); %Monocytes 2.8 % (0.0-10.0); %Neutrophils 92.6 % (42.0-75.0); ALT (SGPT) 10 U/L (8-55); AST (SGOT) 13 U/L (5-34); Albumin 2.9 g/dL (3.4-4.8); Alkaline Phosphatase 74 U/L (40-150); Anion Gap 17 mmol/L (10-20); BUN (Urea Nitrogen) 20 mg/dL (9.8-20.1); Bilirubin, Total 0.8 mg/dL (0.2-1.2); Calc. Creatinine Clearance 0 mL/min (70-130); Calcium 8.8 mg/dL (7.8-10.44); Carbon Dioxide 32 mmol/L (23-31); Chloride 93 mmol/L (98-107); Estimated GFR-MDRD 17; Globulin 2.4 g/dL (2.4-3.5); Glucose 259 mg/dL (83-110); Hemoglobin 9.8 g/dL (12.0-16.0); Mean Corpuscular HGB CONC 30.9 g/dL (32.0-36.0); Mean Corpuscular Hemoglobin 33.5 pg (27.0-31.0); Mean Platelet Volume 8.9 fL (7.4-10.4); Platelet Count 183 thou/uL (130-400); Potassium 3.6 mmol/L (3.5-5.1); Protein, Total 5.3 g/dL (6.0-8.3); RBC Distribution Width 15.8 % (11.5-14.5); Red Blood Cell (RBC) Count 2.91 mill/uL (4.20-5.40); Sodium 138 mmol/L (136-145); White Blood Cell (WBC) Count 8.5 thou/uL (4.8-10.8)
--- NOTE | 2018-07-13 15:16 | RAD ---
CHEST 1 VIEW: Date: 07/13/18 INDICATION: History of shortness of breath. COMPARISON: Prior exam dated 06/19/18. FINDINGS: There has been interval development of pleural parenchymal opacity involving the left lower lobe susp icious for pneumonia with a small parapneumonic effusion. 2 view chest radiograph would be helpful fo r further evaluation. Calcified granuloma and calcified lymph nodes within the right hemithorax are s table. Surgical clips within the right axillary region and left axillary region are stable. No acute osseous abnormality is evident. IMPRESSION: New pleural parenchymal opacity of the left lower lobe. Recommend correlation for pneumonia and parap neumonic effusion. Recommend 2 view chest radiograph for further evaluation. POS: [facility]
[2018-07-13 15:36] LABS: CKMB 1.3 ng/mL (0-6.6)
--- NOTE | 2018-07-13 19:50 | CT ---
CTA CHEST WITH CONTRAST: HISTORY: Sent here from dialysis with worsening shortness of breath that began a few days ago. COMPARISON: None. TECHNIQUE: Multiple contiguous axial images were obtained in a CTA of the chest with contrast, per pulmonary emb olism protocol, and 3D oblique MIP reformats and direct coronal reformats were performed. FINDINGS: The heart is enlarged. The patient has a stent in the aortic valve region. Calcifications are seen in the coronary arteries and aorta. The pulmonary arteries are well opacified without filling defect s to suggest pulmonary emboli. There are small bilateral pleural effusions with adjacent atelectasis. There is radiodense material in the right middle lobe and right lower lobe, which is of uncertain significance and could represent calcified granulomas or bone cement. The kidneys are small and atrophic. There are hypodensities in the kidneys, which likely represent c ysts. There is a 3 cm hypodensity in the tail of the pancreas. Other hypodensities extend from the tail of the pancreas toward the pancreatic hilum. These are nonspecific without IV contrast. The ot her visualized subdiaphragmatic structures are unremarkable. The chest wall soft tissues are unremarkable. Degenerative changes are seen in the spine. IMPRESSION: 1. No evidence of pulmonary thromboembolism. 2. Small bilateral pleural effusions with adjacent atelectasis. 3. Cystic lesions in the tail of the pancreas, extending to the pancreatic hilum, are nonspecific. A CT of the abdomen, per pancreatic mass protocol, is recommended for further evaluation, on a noneme rgent, outpatient basis. POS: [facility]
== END 2018-07-13 19:40 ==
LOC: ERS 14:11
DX: I13.0 Hypertensive heart and chronic kidney disease with heart failure and stage 1 through stage 4 chronic kidney disease, or unspecified chronic kidney disease (principal); I50.9 Heart failure, unspecified; N18.9 Chronic kidney disease, unspecified; K86.89 Other specified diseases of pancreas; E11.22 Type 2 diabetes mellitus with diabetic chronic kidney disease; E78.5 Hyperlipidemia, unspecified; K21.9 Gastro-esophageal reflux disease without esophagitis; Z79.899 Other long term (current) drug therapy
CPT/HCPCS: 71045; 71275; 80053; 82553; 83880; 84484; 85025; 93005

== ENCOUNTER 2018-07-20 20:08 | Inpatient (IN) | payer MEDICARE, OTHER ==
[2018-07-20 20:38] LABS: #Lymphocytes 0.2 thou/uL (1.20-3.40); #Monocytes 0.1 thou/uL (0.11-0.59); #Neutrophils 7.7 thou/uL (1.40-6.50); %Eosinophils 0.1 % (0.0-10.0); %Lymphocytes 2.5 % (21.0-51.0); %Monocytes 1.5 % (0.0-10.0); %Neutrophils 95.9 % (42.0-75.0); Hemoglobin 8.3 g/dL (12.0-16.0); Mean Corpuscular HGB CONC 31.2 g/dL (32.0-36.0); Mean Corpuscular Hemoglobin 33.9 pg (27.0-31.0); Mean Platelet Volume 8.2 fL (7.4-10.4); Platelet Count 250 thou/uL (130-400); Red Blood Cell (RBC) Count 2.45 mill/uL (4.20-5.40)
[2018-07-20] MEDS ORDERED: Piperacillin/Tazobactam 4.5 GM VIAL ONE (21:15)
--- NOTE | 2018-07-20 21:20 | RAD ---
RADIOGRAPH CHEST 1 VIEW: Date: 07/20/18 Time: 8:33 p.m. HISTORY: 88-year-old female with dyspnea. COMPARISON: 07/13/18 FINDINGS: There is a new finding of bilateral central parahilar alveolar infiltrates radiating peripherally int o interstitial pulmonary densities. There is consolidation of the retrocardiac portion of the left lo wer lobe, similar to the prior study. Blunting of the left lateral costophrenic angle is suggestive o f small left pleural effusion, similar to prior study. Surgical clips are present at the lateral ches t wall bilaterally. No pneumothorax. IMPRESSION: 1. Bilateral centrally dominant pulmonary densities, probably represent pulmonary edema. Pneumon ia is less likely but not excluded. 2. Consolidation of left lower lobe could represent atelectasis or pneumonia. 3. At least a small left pleural effusion. JN [] POS: [facility]
[2018-07-20 21:24] LABS: CKMB 1.1 ng/mL (0-6.6)
[2018-07-20 23:12] LABS: ALT (SGPT) 10 U/L (8-55); AST (SGOT) 16 U/L (5-34); Albumin 2.7 g/dL (3.4-4.8); Alkaline Phosphatase 67 U/L (40-150); Anion Gap 21 mmol/L (10-20); BUN (Urea Nitrogen) 32 mg/dL (9.8-20.1); Bilirubin, Total 0.5 mg/dL (0.2-1.2); Calc. Creatinine Clearance 0 mL/min (70-130); Calcium 8.9 mg/dL (7.8-10.44); Carbon Dioxide 26 mmol/L (23-31); Chloride 95 mmol/L (98-107); Estimated GFR-MDRD 13; Globulin 2.5 g/dL (2.4-3.5); Glucose 249 mg/dL (83-110); Potassium 4.2 mmol/L (3.5-5.1); Protein, Total 5.2 g/dL (6.0-8.3); Sodium 138 mmol/L (136-145)
[2018-07-21 00:42] LABS: Lactic Acid 1.7 mmol/L (0.5-2.2)
[2018-07-21] MEDS ORDERED: Ondansetron ODT 4 MG TAB PO PRN (06:49)
[2018-07-21] MEDS ORDERED: Ondansetron PF 4 MG/2 ML Vial IVP PRN (06:49)
[2018-07-21] MEDS ORDERED: Acetaminophen 500 MG TAB PO PRN (06:49)
[2018-07-21] MEDS ORDERED: Dextrose 50% Abboject 50 ML SYRINGE SLOW IVP PRN (06:56)
[2018-07-21] MEDS ORDERED: Dextrose 5% in Water 1,000 ML IV PRN (06:56)
[2018-07-21] MEDS ORDERED: Piperacillin/Tazobactam 2.25 GM VIAL ONE ×3 (07:44→22:48)
[2018-07-21] MEDS ORDERED: Folic Acid 1 MG TAB ONE (08:30)
--- NOTE | 2018-07-21 08:46 | RAD ---
2 VIEWS CHEST: Date: 07/21/18 COMPARISON: 03/24/18. HISTORY: Pneumonia. FINDINGS: Redemonstration of a stent projecting over the cardiac silhouette. Atherosclerosis is again identifie d. There is pulmonary vascular prominence. Patchy interstitial and alveolar infiltrates. Small left-s ided pleural effusion. No pneumothorax. IMPRESSION: 1. Multilobar interstitial and alveolar opacities suggesting infiltrates. Continued surveillance to ensure resolution. 2. Small left-sided pleural effusion. POS: [facility]
[2018-07-21 08:52] LABS: Vancomycin, Random 15.9 ug/mL (See Comment)
[2018-07-21] MEDS: Sevelamer Carbonate 800 MG TAB PO SCH ×2 (09:00→12:37)
[2018-07-21] MEDS: Apixaban 2.5 MG TAB PO SCH ×2 (09:13→22:41)
[2018-07-21] MEDS: Amlodipine 5 MG TAB PO SCH ×2 (09:13→22:46)
[2018-07-21] MEDS: azaTHIOprine 50 MG TAB PO SCH (09:13)
[2018-07-21] MEDS: Carvedilol 6.25 MG TAB PO SCH ×2 (09:14→22:45)
[2018-07-21] MEDS: cloNIDine 0.1 MG TAB PO SCH ×2 (09:15→22:44)
[2018-07-21] MEDS: Folic Acid 1 MG TAB PO SCH (09:15)
[2018-07-21] MEDS ORDERED: Vancomycin HCl 500 MG in Sodium Chloride 0.9% 100 ML IVPB SCH (10:45)
[2018-07-21] MEDS ORDERED: Vancomycin HCl 1.25 GM in Sodium Chloride 0.9% 250 ML 250 ML IVPB SCH (10:45)
[2018-07-21] MEDS ORDERED: HOLD VANCOMYCIN FOR LEVEL >20 FS SCH (10:45)
[2018-07-21] MEDS ORDERED: Vancomycin Sliding Scale 1 EACH FS ONE (10:45)
[2018-07-21] MEDS ORDERED: Vancomycin HCl 1 GM in Premix Bag 1 BAG IVPB SCH (10:45)
[2018-07-21] MEDS ORDERED: Vancomycin HCl 750 MG in Sodium Chloride 0.9% 250 ML 250 ML IVPB SCH (10:45)
[2018-07-21] MEDS: Epoetin (ESRD) 20,000 UNITS/ML SC SCH (11:29)
[2018-07-21] MEDS ORDERED: Lidocaine 4% Cream 5 GM TUBE w/ Tegaderm ONE (11:57)
[2018-07-21 15:09] LABS: Vancomycin, Trough 14.6 ug/mL
--- NOTE | 2018-07-21 16:02 | CON ---
DATE OF CONSULTATION: RENAL MEDICINE SUBJECTIVE: Ms. Curiel is an 88-year-old white female with ESRD and admitted for shortness of breath/hypoxemia. Chest x-ray showed increase or worsening infiltrates. Possibility of CHF versus pneumonia remains. We are being consulted for her maintenance hemodialysis. Due to the hypoxemia in review of the chest x-ray, my bias is to still do another hemodialysis with fluid removal for this patient. Please note, she did not finish her dialysis yesterday. REVIEW OF SYSTEMS: Positive for shortness of breath. No chest pain. No syncopal episode. No productive cough. No fever or chills. No diarrhea. No constipation. Positive for leg edema. Appetite and energy level are decreased. No hematochezia. No melena. No hematemesis. MEDICATIONS: Include the following; 1. Amlodipine 5 mg p.o. b.i.d. 2. Eliquis 2.5 mg p.o. b.i.d. 3. Atorvastatin 10 mg at bedtime. 4. Imuran 150 mg daily. 5. Sensipar 30 mg daily. 6. Clonidine 0.1 b.i.d. 7. Currently on Levaquin at 500 mg every other day. 8. Levothyroxine 25 mcg daily. 9. Zosyn 2.25 g IV q.8. 10. Sertraline 100 mg daily. 11. Renvela 800 mg two tablets t.i.d. with meals. PAST MEDICAL HISTORY: 1. 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 2. GERD status post pneumonia. 3. Type 2 diabetes mellitus, controlled by diet. 4. Longstanding hypertension. 5. Hyperlipidemia. 6. Depression. 7. History of CHF. 8. History of breast cancer in remission. 9. History of decreased hearing. PAST SURGICAL HISTORY: Status post breast biopsy, status post renal biopsy, status post right IJ dialysis catheter placement, status post AV fistula placement, status post eye surgery, status post bilateral mastectomy, status post transcatheter aortic valve replacement, status post appendectomy, status post AV fistula. SOCIAL HISTORY: The patient lives in [facility] living region from [place]. 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 . No children. No history of smoking. No alcohol intake. No drug abuse. Status post blood transfusion. FAMILY HISTORY: No family history of ESRD. ALLERGIES: NONE. TRAUMA: None. IMMUNIZATION: Up-to-date. HOSPITALIZATIONS: Please see past medical history. PHYSICAL EXAMINATION: VITAL SIGNS: Blood pressure is 112/60, heart rate is 112. GENERAL: Noted to be awake, sitting comfortable, not in overt distress. SKIN: Adequate turgor. HEENT: She has a slightly pale conjunctivae. Anicteric sclerae. No neck mass. No carotid bruits. No JVD. CHEST: No deformities. LUNGS: Decreased breath sounds. Bibasilar crackles. HEART: Tachycardic. No murmur, no gallops, no rubs. ABDOMEN: Globular, soft, nontender. No masses. EXTREMITIES: Positive for edema. LABORATORY DATA: Laboratories of July 20, 2018; white count 8, hemoglobin 8.3, sodium 138, potassium 4.2, chloride 95, carbon dioxide 26, BUN 32, creatinine 3.28, glucose 249, calcium 8.9. Albumin is 2.7. Lactic acid is 1.7. IMAGING: Chest x-ray of July 21, 2018 shows pulmonary infiltrates. CHF versus pneumonia. ASSESSMENT AND PLAN: 1. End-stage renal disease, stable. We will continue current Wednesday, Wednesday, and Wednesday hemodialysis regimen. Due to the hypoxemia and chest x-ray suggestive of possible congestive heart failure, we will do a 2-hour hemodialysis with fluid removal as tolerated by the patient today. We will then resume her back on a Wednesday, Wednesday, Wednesday dialysis tomorrow. 2. Presumptive pneumonia-currently on IV antibiotics. 3. ? Congestive heart failure-consider repeat cardiac echo with this patient. If needed, consider Cardiology consult. 4. Anemia. Start Epogen. Job ID: [id number]
[2018-07-21] MEDS: Atorvastatin Calcium 10 MG TAB PO SCH (22:41)
[2018-07-21] MEDS: Mirtazapine 15 MG TAB PO SCH (22:41)
[2018-07-21] MEDS: Piperacillin/Tazobactam 2.25 GM in Sodium Chloride 0.9% 100 ML IVPB SCH (22:55)
--- NOTE | 2018-07-21 23:52 | HP ---
HISTORY OF PRESENT ILLNESS: The patient has been followed at [facility] by nursing staff on coming and going from dialysis. She has struggled with volume overload for the last 6 months, noted to require oxygen. She has been doing quite well with CPAP for sleeping without any additional oxygen support until this last week. This was communicated to my office. It was recommended to have patient go to the emergency department after dialysis on Wednesday. Dialysis nurse stated the patient responded very well to dialysis and she returned home to [facility]. However, to follow up a chest x-ray was ordered on an outpatient basis. This was returned and found to have likely pneumonia. On Wednesday, attempted to set up antibiotics for patient on outpatient basis; however, the patient started to decompensate going into the early evening Wednesday and presented to the emergency department after calling the on-call service, confirmed to still have pulmonary congestion on chest x-ray versus infiltrates. The patient admitted and Dr. Oakes agreed for additional day of dialysis, was unable to pull off much fluid secondary to blood pressure intolerance. The patient has been stable on 3 L nasal cannula. She denies any real significant cough and sputum production; however does report shortness of breath. She has and fatigue. She denies any formal chest pain or palpitations right now. The patient's last echo is nearing one year ago. The patient had normal systolic function at that point in time, however, somewhat diminished compared to 15 months ago on echo prior to that. On review of vital signs, actually currently unavailable as the patient is still on the ED hold per medical record; however review of past medical, social, surgical history includes: 1. Aortic valve replacement. 2. Hypertension. 3. Acid reflux. 4. Hyperlipidemia. 5. Type 2 diabetes. 6. Diet controlled. 7. Diastolic heart failure. 8. End-stage renal disease on hemodialysis every Wednesday, Wednesday, Wednesday. 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 11. Osteoporosis. 12. Physical deconditioning. 13. Thyroid nodule. 14. Obstructive sleep apnea. 15. Reactive airway disease. HOME MEDICATIONS: Include: 1. Mirtazapine 50 mg at bedtime. 2. Amiodarone 200 mg and was actually titrated down by Cardiology to 100 mg daily. 3. Levaquin 500 mg was ordered outpatient; however patient did not formally start. 4. Pantoprazole 40 mg. 5. Zoloft 100 mg. 6. Sensipar 30 mg. 7. Sevelamer carbonate 800 mg. 8. Carvedilol 12.5 mg twice daily. 9. Prednisone 40 mg daily. 10. Glipizide 5 mg. 11. Eliquis 2.5 mg twice daily. 12. Imuran 50 mg, attempting to replace steroid. 13. Folic acid 1 mg. 14. Amlodipine 5 mg. 15. Clonidine 0.2 mg twice daily. 16. [place] Thyroid, attempted to replace levothyroxine 25 mcg. However, PA blocked patient from getting this. The patient's last known medication was levothyroxine 25 mcg. 17. On last cardiology report, Dr. Castillo wanted the patient to stop amlodipine and amiodarone for 1 month. This was in June. Unable to confirm, if patient actually continues to have those stopped. PHYSICAL EXAMINATION: GENERAL: The patient is alert and oriented, in mild respiratory distress and fatigued. Nasal cannula in place. HEAD: Normocephalic, atraumatic. Extraocular movements are intact. HEART: Regular rate and rhythm. LUNGS: Poor air movement. Crackles to wheezes bilaterally. ABDOMEN: Soft, nontender. Positive bowel sounds throughout. LOWER EXTREMITIES: Without cyanosis or edema. NEUROLOGIC: The patient is alert, oriented x3. No focal deficits. Speech is normal. ASSESSMENT/PLAN: 1. Healthcare-acquired pneumonia related to her end-stage renal disease, on dialysis every Wednesday, Wednesday, Wednesday. 2. Multiple thyroid nodules. 3. Obstructive sleep apnea. 4. Diastolic heart failure. I agree with Dr. Oakes and it may be certainly reasonable to recheck echo since it has been coming up on one year, but she has struggled with diastolic function presentations over the last six months. We will follow up on chest x-rays and continue on antibiotics at this point in time, while attempts for extra rounds of dialysis were made. However, blood pressure has had difficulty of holding up. We will follow and titrate medications as needed. In the past, the patient has been full code. Regarding respiratory status, we will continue to have discussions with the patient regarding prognosis as it becomes more clear. Currently on vancomycin, Zosyn and Levaquin regarding antibiotics. Job ID: [id number] [facility]
[2018-07-22] MEDS ORDERED: Furosemide 40 MG/4 ML VIAL ONE (00:01)
[2018-07-22] MEDS ORDERED: Ondansetron PF 4 MG/2 ML Vial SLOW IVP PRN (00:30)
[2018-07-22] MEDS ORDERED: Morphine 2 MG/ML SYRINGE SLOW IVP SCH (00:30)
[2018-07-22] MEDS ORDERED: Morphine 2 MG/ML SYRINGE SLOW IVP PRN (00:31)
[2018-07-22] MEDS: Sevelamer Carbonate 800 MG TAB PO SCH ×4 (03:19→16:55)
[2018-07-22] MEDS: Piperacillin/Tazobactam 2.25 GM in Sodium Chloride 0.9% 100 ML IVPB SCH ×4 (03:19→23:18)
[2018-07-22] MEDS: Cinacalcet HCl 30 MG TAB PO SCH ×2 (03:19→16:55)
[2018-07-22] MEDS: Levothyroxine Sodium 25 MCG TAB PO SCH (06:21)
[2018-07-22 06:29] LABS: #Eosinphils 0.1 thou/uL (0.0-0.7); #Lymphocytes 0.2 thou/uL (1.20-3.40); #Monocytes 0.1 thou/uL (0.11-0.59); #Neutrophils 7.9 thou/uL (1.40-6.50); %Eosinophils 0.9 % (0.0-10.0); %Lymphocytes 2.7 % (21.0-51.0); %Monocytes 1.7 % (0.0-10.0); %Neutrophils 94.8 % (42.0-75.0); Hemoglobin 7.8 g/dL (12.0-16.0); Mean Corpuscular HGB CONC 30.4 g/dL (32.0-36.0); Mean Corpuscular Hemoglobin 34.3 pg (27.0-31.0); Mean Platelet Volume 8.2 fL (7.4-10.4); Platelet Count 212 thou/uL (130-400); RBC Distribution Width 15.8 % (11.5-14.5); Red Blood Cell (RBC) Count 2.28 mill/uL (4.20-5.40); White Blood Cell (WBC) Count 8.3 thou/uL (4.8-10.8)
[2018-07-22 06:49] LABS: ALT (SGPT) 10 U/L (8-55); AST (SGOT) 12 U/L (5-34); Albumin 2.4 g/dL (3.4-4.8); Alkaline Phosphatase 57 U/L (40-150); Anion Gap 18 mmol/L (10-20); BUN (Urea Nitrogen) 41 mg/dL (9.8-20.1); Bilirubin, Total 0.6 mg/dL (0.2-1.2); Calc. Creatinine Clearance 0 mL/min (70-130); Calcium 9.2 mg/dL (7.8-10.44); Carbon Dioxide 24 mmol/L (23-31); Chloride 101 mmol/L (98-107); Estimated GFR-MDRD 11; Globulin 2.2 g/dL (2.4-3.5); Glucose 103 mg/dL (83-110); Magnesium 1.8 mg/dL (1.6-2.6); Phosphorus 5.3 mg/dL (2.3-4.7); Protein, Total 4.6 g/dL (6.0-8.3); Sodium 139 mmol/L (136-145)
[2018-07-22] MEDS ORDERED: LIDOCAINE TOP SCH (09:00)
--- NOTE | 2018-07-22 09:14 | PRG ---
DATE OF SERVICE: 07/22/2018 RENAL MEDICINE SUBJECTIVE: Ms. Curiel is an 88-year-old white female with ESRD, was admitted for shortness of breath. The chest x-ray suggests a pneumonia versus CHF. Empiric IV antibiotics have been started. In addition, she underwent a 2-hour ultrafiltration yesterday. We were only able to remove 800 mL of fluid. My plan is to do another dialytic intervention today and remove fluid as tolerated by the patient. She had a rough night last night. She had a hard time sleeping. This morning, she is more comfortable and not in distress. OBJECTIVE: VITAL SIGNS: Blood pressure 124/58, heart rate 78, respiratory rate 16, temperature 98, GENERAL: The patient is sleeping, comfortable, not in distress. SKIN: Adequate turgor. HEENT: Pale conjunctivae. Anicteric sclerae. NECK: No neck mass. No carotid bruits. No JVD. CHEST: No deformities. LUNGS: Clear breath sounds. HEART: Normal sinus rhythm. No murmur. No gallops. No rubs. ABDOMEN: Globular, soft, nontender. No masses. EXTREMITIES: Positive for edema. MEDICATIONS: Medications of July 22, 2018, reviewed. LABORATORY DATA: Laboratories of July 22, 2018; white count 8.2, hemoglobin 7.8. Sodium 139, potassium 4.0, chloride 101, carbon dioxide 24, BUN 41, creatinine 4.02, magnesium 1.8, AST 12, ALT 10, and albumin 6.4. Chest x-ray of July 21, 2018, showed chest x-ray, which was relatively unchanged - multilobar interstitial and alveolar opacities suggesting infiltrates. CHF versus pneumonia. ASSESSMENT AND PLAN: 1. Shortness of breath, multifactorial etiology. Currently being treated for pneumonia. We will also try to max out fluid removal with the dialysis as tolerated by the patient. Repeat cardiac echo has been done with the patient. 2. Anemia. We have resumed back her weekly Epogen at 7500 units subcu q.week. Her overall prognosis remains guarded. 3. We will recheck her basic met and CBC in a.m. Job ID: [id number] [facility]
[2018-07-22] MEDS: Carvedilol 3.125 MG TAB PO SCH ×2 (12:03→16:55)
[2018-07-22] MEDS: cloNIDine 0.1 MG TAB PO SCH ×2 (12:04→20:46)
[2018-07-22] MEDS: azaTHIOprine 50 MG TAB PO SCH (12:06)
[2018-07-22] MEDS: Apixaban 2.5 MG TAB PO SCH ×2 (12:06→20:45)
[2018-07-22] MEDS: Folic Acid 1 MG TAB PO SCH (12:06)
--- NOTE | 2018-07-22 12:49 | PQF ---
DATE: 07-22-18 ATTN: DR. CHAGO LONGORIA Please exercise your independent, professional judgment in responding to the clarification form. Clinical indicators are provided on the bottom of this form for your review Please check appropriate box(s): [x ] Acute Respiratory Failure: [ x] with Hypoxia[ ] with Hypercapnia [ ] Acute Respiratory Failure due to: (etiology) [ ] Other diagnosis [ ] Unable to determine In addition, please specify: Present on Admission (POA): [ x ] Yes [ ] No [ ] Unable to determine For continuity of documentation, please document condition throughout progress notes and discharge summary. Thank You. CLINICAL INDICATORS - SIGNS / SYMPTOMS / LABS ER: 85% ON RA, RR 24, REPORTS SOB REQUIRING O2 SINCE WEDNESDAY, COUGH WITH PHLEGM, FELL AND HIT HER LEFT CHEST 10 DAYS AGO H&P: NOTED TO REQUIRE OXYGEN, SHE HAS BEEN DOING QUITE WELL WITH CPAP FOR SLEEPING W/O ANY ADDITIONAL OXYGEN SUPPORT UNTIL THIS LAST WEEK, THE PATIENT HAS BEEN STABLE ON 3L NC, REPORTS SHORTNESS OF BREATH H&P: POOR AIR MOVEMENT, CRACKLES TO WHEEZES BILATERALLY, TANYA CXR 07-21-18: THERE IS PULMONARY VASCULAR PROMINENCE RISK FACTORS: ER: 85% ON RA, RR 24, REPORTS SOB REQUIRING O2 SINCE WEDNESDAY, COUGH WITH PHLEGM H&P: NOTED TO REQUIRE OXYGEN, SHE HAS BEEN DOING QUITE WELL WITH CPAP FOR SLEEPING W/O ANY ADDITIONAL OXYGEN SUPPORT UNTIL THIS LAST WEEK, THE PATIENT HAS BEEN STABLE ON 3L NC, REPORTS SHORTNESS OF BREATH ER DX: PNEUMONIA, ESRD ON HEMODIALYSIS, HYPOXIA TREATMENTS: H&P: THE PATIENT HAS BEEN STABLE ON 3L NC SERIAL CXR MAR: LEVAQUIN IV, VANCOMYCIN IV, ZOSYN IV (This form is maintained as a part of the permanent medical record) 2014 [employer]. All Rights Reserved [email or web address] Office: [phone] [facility] FACILITYPaulina
--- NOTE | 2018-07-22 18:06 | PRG ---
DATE OF SERVICE: 07/22/2018 SUBJECTIVE: The patient noted to have pressure ulcer present on admission. Wound care photos documented this morning. The patient additionally has bruising to the flank and lower extremity. The patient states she remains short of breath and continues to have cough and is compliant with CPAP at night. The patient and her relative at bedside verbalized understanding regarding decrease of blood pressure medications to allow for higher efficiency of dialysis for removal of fluid and pending echo repeat regarding the patient's diastolic CHF. They both verbalized understanding at bedside of potential progression with decreased medications for congestive heart failure at a more rapid rate, but for a temporary gain with better dialysis tolerance. The patient also affirmed a full code this hospitalization. OBJECTIVE: VITAL SIGNS: Temperature of 97.9, pulse 94, blood pressure 169/69, oxygen saturation 94% on 3 to 4 L nasal cannula. GENERAL: The patient is alert, in no acute distress. HEENT: Head is normocephalic and atraumatic. Extraocular movements are intact. Sclerae are white. Nasal cannula in place. Oral mucosa is moist. NECK: Supple. HEART: Slightly tachycardic, but regular rate. No murmurs auscultated. LUNGS: With improved air movement with slight crackles in bilateral bases with end-expiratory wheezes bilaterally. ABDOMEN: Soft, nontender, positive bowel sounds throughout. LOWER EXTREMITIES: Without cyanosis or edema. NEUROLOGIC: The patient is alert and oriented x3. No focal deficits. Speech is normal. LABORATORY DATA: White blood cell count of 8.3, hemoglobin of 7.8, neutrophils at 94%. Creatinine of 4.0, potassium of 4.0, sodium of 139, glucose range 88 to 155, phosphorus 5.3, albumin of 2.4. Last vancomycin trough of 13.0. Initial blood culture at 48 hours is negative. Flu swab in the emergency department was negative. ASSESSMENT AND PLAN: Healthcare-acquired pneumonia; diastolic congestive heart failure with pulmonary congestion; pancreatic cyst; on chronic anticoagulation for aortic valve replacement; nodular thyroid; end-stage renal disease, on hemodialysis; obstructive sleep apnea; reactive airway disease. Continuing breathing treatments, oxygen support and the patient's CPAP at night. Currently treated on vancomycin, Zosyn, and Levaquin. The patient remains stable at this point. White blood cell count continues to have left shift. Current cultures are reported as negative. The patient remains anticoagulated with Eliquis. I have decreased the patient's Coreg down to 3.125 b.i.d. from 12.5 b.i.d. We will follow up on the echo results, see if the patient tolerates dialysis better today. We will check lipase in a.m., follow up on laboratory work and follow up on chest x-ray progression. We will look towards having the patient get up with therapy services when able over this weekend. Job ID: [id number]
[2018-07-22] MEDS: Mirtazapine 15 MG TAB PO SCH (20:46)
[2018-07-22] MEDS: Atorvastatin Calcium 10 MG TAB PO SCH (23:11)
[2018-07-23] MEDS: Levothyroxine Sodium 25 MCG TAB PO SCH (05:12)
[2018-07-23] MEDS: Piperacillin/Tazobactam 2.25 GM in Sodium Chloride 0.9% 100 ML IVPB SCH ×3 (05:12→21:37)
[2018-07-23 06:12] LABS: #Eosinphils 0.2 thou/uL (0.0-0.7); #Lymphocytes 0.3 thou/uL (1.20-3.40); #Monocytes 0.1 thou/uL (0.11-0.59); #Neutrophils 6.8 thou/uL (1.40-6.50); %Basophils 0.2 % (0.0-1.0); %Eosinophils 2.5 % (0.0-10.0); %Lymphocytes 4.1 % (21.0-51.0); %Monocytes 1.1 % (0.0-10.0); %Neutrophils 92.1 % (42.0-75.0); Hemoglobin 7.5 g/dL (12.0-16.0); Mean Corpuscular HGB CONC 29.9 g/dL (32.0-36.0); Mean Corpuscular Hemoglobin 33.6 pg (27.0-31.0); Mean Platelet Volume 8.3 fL (7.4-10.4); Platelet Count 214 thou/uL (130-400); RBC Distribution Width 15.8 % (11.5-14.5); Red Blood Cell (RBC) Count 2.24 mill/uL (4.20-5.40); White Blood Cell (WBC) Count 7.3 thou/uL (4.8-10.8)
[2018-07-23 06:34] LABS: ALT (SGPT) 9 U/L (8-55); AST (SGOT) 13 U/L (5-34); Albumin 2.4 g/dL (3.4-4.8); Alkaline Phosphatase 60 U/L (40-150); Anion Gap 15 mmol/L (10-20); BUN (Urea Nitrogen) 27 mg/dL (9.8-20.1); Bilirubin, Total 0.6 mg/dL (0.2-1.2); Calc. Creatinine Clearance 15 mL/min (70-130); Calcium 9.2 mg/dL (7.8-10.44); Carbon Dioxide 28 mmol/L (23-31); Chloride 99 mmol/L (98-107); Estimated GFR-MDRD 14; Globulin 2.1 g/dL (2.4-3.5); Glucose 76 mg/dL (83-110); Lipase 7 U/L (8-78); Potassium 3.8 mmol/L (3.5-5.1); Protein, Total 4.5 g/dL (6.0-8.3); Sodium 138 mmol/L (136-145)
[2018-07-23] MEDS: cloNIDine 0.1 MG TAB PO SCH (08:29)
[2018-07-23] MEDS: Folic Acid 1 MG TAB PO SCH (08:30)
[2018-07-23] MEDS: Sevelamer Carbonate 800 MG TAB PO SCH ×3 (08:30→17:01)
[2018-07-23] MEDS: azaTHIOprine 50 MG TAB PO SCH (08:30)
[2018-07-23] MEDS: Carvedilol 3.125 MG TAB PO SCH ×2 (08:30→17:01)
[2018-07-23] MEDS: Apixaban 2.5 MG TAB PO SCH ×2 (08:31→21:36)
--- NOTE | 2018-07-23 10:50 | EKG ---
Test Reason : SOB Blood Pressure : / mmHG Vent. Rate : 087 BPM Atrial Rate : 087 BPM P-R Int : 138 ms QRS Dur : 092 ms QT Int : 352 ms P-R-T Axes : 036 -17 046 degrees QTc Int : 423 ms Sinus rhythm with Premature atrial complexes Minimal voltage criteria for LVH, may be normal variant T wave abnormality, consider lateral ischemia Abnormal ECG Confirmed by LUZ PRECIADO DO ([id number]), state editor MARKO TAYLOR ([id number]) on 07/23/2018 10:50:20 AM Referred By: ILANA Confirmed By:LUZ PRECIADO DO
--- NOTE | 2018-07-23 10:57 | PRG ---
DATE OF SERVICE: 07/23/2018 SUBJECTIVE: Ms. Curiel is an 88-year-old white female, who was admitted for shortness of breath and hypoxemia. She underwent 2 days of consecutive dialysis. Fluid removal was done also yesterday, but she had some episodes of low blood pressure. This morning, she is feeling a little better. OBJECTIVE: VITAL SIGNS: Blood pressure is 134/92, heart rate 87, respiratory rate 24, and temperature 98.5. GENERAL: Noted to be awake, supine, comfortable, not in overt distress. SKIN: Adequate turgor. HEENT: Slightly pale conjunctivae. Anicteric sclerae. NECK: No neck mass. No carotid bruits. No JVD. CHEST: No deformities. LUNGS: Decreased breath sounds. HEART: Normal sinus rhythm. No murmurs. No gallops. No rubs. ABDOMEN: Globular, soft, and nontender. No masses. EXTREMITIES: Positive for edema. MEDICATIONS: Medications of July 23, 2018, reviewed. LABORATORY DATA: Laboratories of July 23, 2018, BUN 27, creatinine 3.07, and potassium 3.8. White count 7.2, hemoglobin 7.5. ASSESSMENT AND PLAN: 1. Anemia - continuing weekly Epogen of 7500 units subcu every week. 2. Congestive heart failure/chronic obstructive pulmonary disease exacerbation - maxing out fluid removal with dialysis. Continue supportive care, empiric IV antibiotics. 3. End-stage renal disease, stable, continuing hemodialysis regimen. We will re-evaluate in a.m. to see if she will need another further dialytic intervention. Overall, prognosis remains guarded. Job ID: [id number]
--- NOTE | 2018-07-23 12:06 | RAD ---
PORTABLE CHEST: Date: 07/23/18 HISTORY: Shortness of breath. COMPARISON: 07/20/18 and 07/21/18. FINDINGS: Heart size is enlarged. Pulmonary vessels are engorged. Changes appear slightly improved as compared to the previous study. There is still persistent increased density in the left base suggesting left e ffusion. A stent device is again noted in the aortic valve region. IMPRESSION: Cardiomegaly with some slight improvement to the bilateral alveolar opacities. Persistent pleural and parenchymal changes in the left base are present. These changes may be slightly worsened as compared to the prior examination, but the difference may also be related on the basis of less optimal inspir ation. Continued follow-up is recommended. POS: [facility]
[2018-07-23] MEDS ORDERED: cloNIDine 0.1 MG TAB PO PRN (12:30)
--- NOTE | 2018-07-23 12:51 | PRG ---
DATE OF SERVICE: 07/23/2018 PRIMARY CARE PHYSICIAN: Jerry Robles MD SUBJECTIVE: An 88-year-old female admitted for shortness of breath and hypoxemia and anemia. Consultation with Dr. Oakes from Nephrology. She has had 2 days at least of consecutive dialysis, which has drained a lot of her energy. She feels a little bit better today. OBJECTIVE: VITAL SIGNS: BP is 134/92, afebrile, temperature 98.5, pulse 87, and respiratory rate 24. GENERAL: In no acute distress. HEENT: Her mucous membranes are moist. Pupils are equal, round, and reactive to light and accommodation. Extraocular movements are intact. NECK: Supple. No bruits. No JVD. No thyromegaly. No lymphadenopathy. LUNGS: Diminished sounds bilaterally, but no rales or rhonchi or wheezes. HEART: S1 and S2. No rubs, murmurs, or gallops. ABDOMEN: Slightly obese, but soft and nontender. No masses. No hepatosplenomegaly. Bowel sounds are hypoactive at this time. EXTREMITIES: Show good palpable pulses in all 4 extremities. 1 to 2+ edema in bilateral ankles and feet. LABORATORY DATA: Recent labs: White count remains stable and good at 7.3; red blood cell count is stable and low at 2.2; hemoglobin is stable from yesterday, currently 7.5; hematocrit 25.2; platelet count stable at 214; neutrophils slightly elevated in percentage of 92%, lymphocytes under 4.1%. Chemistries; sodium 138, potassium 3.8, chloride 99, bicarb 28, BUN is 27, creatinine is 3.07, filtration rate is at 14, estimated glucose 76, serum protein is low at 4.5, albumin is low at 2.4. Her lipase is at 7. ASSESSMENT: Congestive heart failure exacerbation, end-stage renal disease, getting dialysis and diuresis and also anemia. Continuing her Epogen injections weekly. Currently, we will make her clonidine p.r.n. as she has been getting hypotensive from dialysis. We will increase her nebulizers to being scheduled instead of p.r.n. Job ID: [id number]
[2018-07-23] MEDS: Cinacalcet HCl 30 MG TAB PO SCH (17:01)
[2018-07-23] MEDS: Atorvastatin Calcium 10 MG TAB PO SCH (21:36)
[2018-07-23] MEDS: Mirtazapine 15 MG TAB PO SCH (21:36)
--- NOTE | 2018-07-24 02:30 | CON ---
DATE OF CONSULTATION: 07/23/2018 REASON FOR CONSULTATION: Dysphagia. CONSULTING PHYSICIAN: Dr. Tien Olmos. HISTORY OF PRESENT ILLNESS: The patient is an 88-year-old female with past medical history of hypertension, gastroesophageal reflux disease, hyperlipidemia, diabetes, diastolic heart failure, end-stage renal disease on hemodialysis, ANCA vasculitis, rapidly progressive glomerulonephritis, osteoporosis, obstructive sleep apnea, and reactive airway disease, who was admitted to the hospital with increased shortness of breath. The patient states that she had been having increased shortness of breath and dyspnea on exertion for approximately 1 week prior to admission. She was subsequently evaluated by her PCP with recommendations to go to the ER. Upon evaluation in the ER, she was noted to have chest x-ray findings consistent for pneumonia. Given her recent healthcare exposures and hemodialysis as an outpatient, this was deemed to be a healthcare associated pneumonia and placed on appropriate antibiotic therapy. However, she does have the concurrent diagnosis of diastolic heart failure and has been having volume overload difficulties with hemodialysis, which could also potentially could create the current clinical picture for which she has been undergoing dialysis during this hospitalization. However, today upon questioning, she states that she has been having increased dysphagia characterized as the sensation of food feels like it is getting stuck at the level of the xiphoid process. This will occur approximately once in every five meals and has been present for the last 2 months. This will occur with both solid and liquid foods and is associated with increased coughing/gagging with the ingestion of food. She also endorses associated shortness of breath, but no overt symptoms of impaction/esophageal obstruction. Of note, upon chart review, she was noted to have dysphagia in March of 2018, for which she underwent speech pathology evaluation. She was noted to have difficulty with thin liquids with recommendations of a chopped diet with nectar thin liquids and responded well to this particular dietary regimen. She currently denies any nausea, vomiting, odynophagia, abdominal pain, or GERD type symptoms. REVIEW OF SYSTEMS: A 10-category review of systems was obtained with all responses negative except for the pertinent positives as listed in the HPI. PAST MEDICAL HISTORY: As per HPI. PAST SURGICAL HISTORY: 1. Renal biopsy. 2. Breast biopsy. 3. Right internal jugular dialysis catheter placement. 4. Arteriovenous fistula placement. 5. Appendectomy. 6. Aortic valve replacement. 7. Bilateral mastectomy. 8. Eye surgery. FAMILY HISTORY: Denies any GI malignancies. SOCIAL HISTORY: Denies any tobacco, alcohol, or illicit drug use. OUTPATIENT MEDICATIONS: Reviewed. ALLERGIES: HYDRALAZINE. PHYSICAL EXAMINATION: VITAL SIGNS: Temperature 98, pulse 95, blood pressure 112/68, respiratory rate 19, saturating 99% on 3 L nasal cannula. GENERAL: The patient was lying in bed, in no acute distress. Alert and oriented x4. HEENT: Normocephalic, atraumatic. NECK: Supple. No JVD or scleral icterus noted. CARDIOVASCULAR: Regular rate, but frequent PACs. Loud S2 was also auscultated in the left upper sternal border. No discernible gallops or rubs. RESPIRATORY: Coarse breath sounds were heard in all lung emmanuel with end-expiratory wheezing, again heard in all lung emmanuel. ABDOMEN: Normoactive bowel sounds. Soft, nontender, nondistended. EXTREMITIES: No cyanosis, clubbing, or edema. LABORATORY DATA: CBC with a white blood cell count of 7.3, hemoglobin 7.5, hematocrit 23.2, platelets 214. Chemistry with a sodium of 138, potassium 3.8, chloride 99, CO2 of 28, BUN 27, creatinine 3.07, glucose 76, AST 13, ALT 9, alkaline phosphatase 60, total bilirubin 0.6, albumin 2.4. IMAGING DATA: Chest x-ray obtained on July 21, 2018, showed multi lobar interstitial and alveolar opacities suggesting infiltrate and a small left-sided pleural effusion. ASSESSMENT AND PLAN: The patient is an 88-year-old female with past medical history of hypertension, gastroesophageal reflux disease, hyperlipidemia, Diabetes, diastolic heart failure, end-stage renal disease, on hemodialysis, ANCA vasculitis, rapidly progressive glomerulonephritis, osteoporosis, obstructive sleep apnea, reactive airway disease, valvular disease, status post aortic valve repair, presenting with healthcare-associated pneumonia and dysphagia. DYSPHAGIA: The patient states that she has been having increased episodes of dysphagia characterized as a sensation that food is getting stuck at the level of the xiphoid process, but this was also associated with increased coughing/gagging episodes. It would intermittently occur with ingestion of both solid and liquid foods. She is currently experiencing these symptoms approximately once every 5-6 meals. However, over the same time, she has been increasing increased shortness of breath and dyspnea on exertion with significant difficulties with volume issues related to her congestive heart failure and more recently diagnosed with healthcare-associated pneumonia, both of which could contribute to her current clinical picture. Based on the worsening of her dysphagia with worsening of her pneumonia and heart failure, I would recommend stabilizations of these particular conditions prior to further workup including invasive intervention like EGD. However, during this admission, she may benefit from a bedside swallow study in order to ascertain the current diet that is best for her given her current clinical condition. At this point in time, the dysphagia picture is a little unclear given the fact that increased coughing/gagging is more associated with oropharyngeal dysphagia; however she does continue to have the sensation of food getting stuck at the xiphoid process, which could be indicative of an esophageal stricture/stenosis. Current differential could include oropharyngeal dysphagia (more likely), gastroesophageal reflux disease, esophageal stricture/stenosis, eosinophilic esophagitis given her history of atopy or exacerbation of any swallowing given her decreased reserve for breathing. RECOMMENDATIONS: 1. We would continue to treat her healthcare-associated pneumonia with antibiotic therapy. Agree with the current antibiotic choice. 2. We would continue to monitor patient for signs of volume overload that might be indicative of exacerbation of her heart failure, which then could in turn create nausea, vomiting, and dysphagia. 3. I agree with placing the patient on pantoprazole daily for possible acid reflux contributing to her dysphagia. 4. We would recommend a speech pathology evaluation with a bedside swallow study to determine current diet better suited to this patient. 5. We will hold off any endoscopic intervention for now given her decreased respiratory reserve and active healthcare-associated pneumonia. Once the patient is through this particular hospitalization, I would recommend evaluation in the GI clinic and possible upper endoscopy at that time. 6. We will follow peripherally while here in the hospital with possible upper endoscopy performed at the end of the hospitalization on discharge, if she shows significant improvement in her respiratory status. Please call with any questions. Job ID: [id number]
[2018-07-24] MEDS: Piperacillin/Tazobactam 2.25 GM in Sodium Chloride 0.9% 100 ML IVPB SCH ×3 (05:18→22:05)
[2018-07-24] MEDS: Levothyroxine Sodium 25 MCG TAB PO SCH (05:18)
--- NOTE | 2018-07-24 07:48 | RAD ---
PORTABLE CHEST: Date: 07/24/18 PROVIDED CLINICAL HISTORY: Pneumonia and CHF. FINDINGS: Comparison made with the study dated 07/23/18. Interval increase in right parahilar air space disease. Persistent left basilar pleural parenchymal o pacity. Persistent pulmonary vascular congestion. No evidence for pneumothorax. IMPRESSION: Increased right parahilar air space disease. Otherwise stable study. POS: [facility]
[2018-07-24] MEDS: Sevelamer Carbonate 800 MG TAB PO SCH ×3 (08:53→18:57)
[2018-07-24] MEDS: Carvedilol 3.125 MG TAB PO SCH ×2 (08:54→18:57)
[2018-07-24] MEDS: azaTHIOprine 50 MG TAB PO SCH (08:54)
[2018-07-24] MEDS: Apixaban 2.5 MG TAB PO SCH ×2 (08:55→20:24)
[2018-07-24] MEDS: Folic Acid 1 MG TAB PO SCH (08:55)
[2018-07-24] MEDS: Lorazepam 0.5 MG TAB PO PRN (08:56)
--- NOTE | 2018-07-24 09:43 | PRG ---
DATE OF SERVICE: 07/24/2018 RENAL MEDICINE: SUBJECTIVE: Ms. Curiel is an 88-year-old white female with ESRD, admitted for shortness of breath. Chest x-ray shows persistent CHF. The patient is relatively stable with an adequate oxygenation this morning. Cardiac echo showed an EF of 50% to 55%. No other complaints. The patient thinks her breathing is a little better. OBJECTIVE: VITAL SIGNS: Blood pressure is 137/69, heart rate 82, respiratory rate 18, temperature 97.5, and pulse ox is 96%. GENERAL: Noted to be awake, alert, comfortable, not in distress. SKIN: Adequate turgor. HEENT: She has slightly pale conjunctivae. Anicteric sclerae. NECK: No neck mass. No carotid bruits. No JVD. CHEST: No deformities. LUNGS: Decreased breath sounds. HEART: Normal sinus rhythm. No murmurs, gallops, or rubs. ABDOMEN: Globular, soft, and nontender. No masses. EXTREMITIES: No edema. No deformities. MEDICATIONS: Medications of July 24, 2018, was reviewed. LABORATORY DATA: Laboratories of July 23, 2018, white count 7.3 and hemoglobin 7.5. Sodium 138, potassium 3.8, chloride 99, carbon dioxide 28, BUN 27, creatinine 3.07, glucose 76, and albumin is 2.4. Chest x-ray - shows increased lung markings. ASSESSMENT AND PLAN: 1. Congestive heart failure - we will schedule for another hemodialysis today. We will do a 2-hour ultrafiltration with this patient today. 2. End-stage renal disease - resume back a regular hemodialysis Wednesday - again max out fluid removal only as tolerated. 3. Anemia, currently on weekly Epogen. 4. Recheck basic metabolic and CBC in a.m. Job ID: [id number]
--- NOTE | 2018-07-24 12:55 | PRG ---
DATE OF SERVICE: 07/24/2018 PRIMARY CARE PHYSICIAN: Jerry Robles MD SUBJECTIVE/OBJECTIVE: Today, no new complaints. Vital signs, afebrile, pulse 94, BP is 139/60, saturating 98% on 3 L. Is continuing to get hemodialysis and Dr. Oakes from Nephrology is continuing to followup and visit with her. Her exam today essentially is unchanged. No acute distress. Neck is supple. No JVD. Lungs have diminished sounds bilaterally, but no rales, rhonchi, or wheezes. Heart is S1, S2. No rubs, murmurs, or gallops. ASSESSMENT/PLAN: Congestive heart failure exacerbation, end-stage renal disease, on hemodialysis, and also chronic anemia. Continue to get her Epogen injections weekly. Trying to get her congestive heart failure under better control before sending her home. Hopefully, home in the next day or two. She will continue on the dialysis here today. We will recheck labs in the morning. Job ID: [id number]
--- NOTE | 2018-07-24 13:39 | PRG ---
DATE OF SERVICE: 07/23/2018 ADDENDUM: She stated after the visit that she has actually had some trouble swallowing food or foods gotten stuck, feels like midway down retrosternally and so it is to the point that she is not wanting to eat any solid foods, only taking the broth from the soup so. Plan is to get a GI eval for possible esophageal intervention. Job ID: [id number]
[2018-07-24] MEDS: Cinacalcet HCl 30 MG TAB PO SCH (18:57)
[2018-07-24] MEDS: Mirtazapine 15 MG TAB PO SCH (20:24)
[2018-07-24] MEDS: Atorvastatin Calcium 10 MG TAB PO SCH (20:24)
--- NOTE | 2018-07-24 23:30 | PRG ---
DATE OF SERVICE: 07/24/2018 REASON FOR CONSULTATION: Dysphagia. SUBJECTIVE: The patient states that she is doing a little bit better today with decreased shortness of breath. However, she had not eaten anything today due to lack of appetite and therefore could not yield any information regarding continued dysphagia. Currently denies any nausea, vomiting, fevers, chills, or GI bleeding. OBJECTIVE: VITAL SIGNS: Temperature 98.2, pulse 94, blood pressure 138/62, respiratory rate 19, saturating 97% on 3 L nasal cannula. GENERAL: The patient was lying in bed, in no acute distress. Alert and oriented x2. CARDIOVASCULAR: Regular rate, but frequent PACs and a loud S2 auscultated in the left upper sternal border. RESPIRATORY: Coarse breath sounds were heard in all lung emmanuel with end-expiratory wheezing. ABDOMEN: Normoactive bowel sounds. Soft, nontender, nondistended. EXTREMITIES: No cyanosis, clubbing, or edema. LABORATORY DATA: CBC with a white blood cell count of 7.3, hemoglobin 7.5, hematocrit 25.2, platelets 214. IMAGING DATA: Chest x-ray obtained on July 24, 2018 showed increased right perihilar airspace disease, otherwise stable study. ASSESSMENT AND PLAN: The patient is an 88-year-old female with past medical history of hypertension, gastroesophageal reflux disease, hyperlipidemia, diabetes, diastolic heart failure, end-stage renal disease on hemodialysis, ANCA vasculitis, rapidly progressive glomerulonephritis, osteoporosis, obstructive sleep apnea, reactive airway disease, valvular disease status post aortic valve repair, now presenting with healthcare associated pneumonia and dysphagia. Dysphagia. The patient states that she has been having increased episodes of dysphagia that had been present for the last few months, characterized as the sensation that food was getting stuck at the level of the xiphoid process and would also be associated with increased coughing/gagging episodes. However, over the same time, she has been having significant difficulties with volume issues related to her congestive heart failure and end-stage renal disease, which could contribute to her current clinical picture. Based on the concurrent diagnosis of a healthcare associated pneumonia at this time, it could potentially generate dysphagia as well especially with conversational dyspnea on physical examination. Ideally, the best study would be to order an upper endoscopy for further evaluation of any intraluminal process, but given her significant pneumonia, upper endoscopy would be ill-advised with occurring increased complications. RECOMMENDATIONS: 1. We would continue to treat healthcare-associated pneumonia. 2. Continue to monitor patient for signs of volume overload that could potentially contribute to nausea, vomiting, and dysphagia. 3. Continue PPI daily. 4. We would recommend speech pathology evaluation with bedside swallow study. 5. We will continue to hold on any additional endoscopic management at this time due to the patient's tenuous respiratory status. We will sign off at this time. Please have the patient follow up in the GI Clinic as an outpatient once her respiratory status has been more stabilized for further evaluation of her dysphagia. Job ID: [id number]
[2018-07-25] MEDS: Lorazepam 0.5 MG TAB PO PRN (03:53)
[2018-07-25] MEDS: Piperacillin/Tazobactam 2.25 GM in Sodium Chloride 0.9% 100 ML IVPB SCH ×2 (05:45→14:41)
[2018-07-25] MEDS: Levothyroxine Sodium 25 MCG TAB PO SCH (05:45)
[2018-07-25 05:50] LABS: #Eosinphils 0.1 thou/uL (0.0-0.7); #Lymphocytes 0.3 thou/uL (1.20-3.40); #Monocytes 0.1 thou/uL (0.11-0.59); %Basophils 0.1 % (0.0-1.0); %Lymphocytes 3.8 % (21.0-51.0); %Monocytes 1.4 % (0.0-10.0); %Neutrophils 92.7 % (42.0-75.0); Hemoglobin 7.5 g/dL (12.0-16.0); Mean Corpuscular HGB CONC 30.2 g/dL (32.0-36.0); Mean Corpuscular Hemoglobin 33.8 pg (27.0-31.0); Mean Platelet Volume 9.2 fL (7.4-10.4); Platelet Count 177 thou/uL (130-400); RBC Distribution Width 16.4 % (11.5-14.5); Red Blood Cell (RBC) Count 2.23 mill/uL (4.20-5.40); White Blood Cell (WBC) Count 7.5 thou/uL (4.8-10.8)
[2018-07-25 06:52] LABS: Anion Gap 23 mmol/L (10-20); BUN (Urea Nitrogen) 49 mg/dL (9.8-20.1); Calc. Creatinine Clearance 10 mL/min (70-130); Calcium 9.5 mg/dL (7.8-10.44); Carbon Dioxide 20 mmol/L (23-31); Chloride 100 mmol/L (98-107); Estimated GFR-MDRD 9; Glucose 95 mg/dL (83-110); Sodium 138 mmol/L (136-145)
[2018-07-25] MEDS ORDERED: Potassium Chloride 20 MEQ in Premix Bag 1 BAG IVPB SCH (07:45)
--- NOTE | 2018-07-25 08:30 | RAD ---
CHEST ONE VIEW: History: CHF, pneumonia. Comparison: 07-24-18 FINDINGS: There is atherosclerosis of the aorta. Pulmonary vessels and hilum are normal. Costophrenic angles ar e clear. Interstitial and alveolar infiltrates throughout the lung parenchyma. Bibasilar pleural effu liliane. No pneumothorax. IMPRESSION: 1. Multifocal interstitial and alveolar infiltrates. Cardiomegaly. Pleural effusion. Congestive heart failure. 2. Atherosclerosis. POS: [facility]
[2018-07-25] MEDS: Sevelamer Carbonate 800 MG TAB PO SCH ×3 (08:40→17:30)
--- NOTE | 2018-07-25 09:10 | PRG ---
DATE OF SERVICE: 07/25/2018 SUBJECTIVE: Ms. Curiel is an 88-year-old white female, admitted for shortness of breath and hypoxemia. She is in CHF. We are following her up for maintenance hemodialysis. The patient underwent an extra hemodialysis/ultrafiltration due to the CHF. We are attempting to max out fluid removal. The patient is currently at the dialysis today, again fluid removal only as tolerated by the patient. Still short of breath. OBJECTIVE: VITAL SIGNS: Blood pressure is 124/70, heart rate 97, respiratory rate is 20, pulse ox 96%, temperature is 98.1. GENERAL: Awake, in mild respiratory distress. SKIN: Adequate turgor. HEENT: She has pale conjunctivae. Anicteric sclerae. NECK: No neck mass. No carotid bruits. No JVD. CHEST: No deformities. LUNGS: Decreased breath sounds. Positive for bibasilar crackles. HEART: Normal sinus rhythm. No murmur. No gallops. No rubs. ABDOMEN: Globular, soft. Nontender. No masses. EXTREMITIES: Positive for edema, but no deformities. MEDICATIONS: Medications of July 25, 2018 was reviewed. LABORATORY DATA: Laboratories of July 25, 2018; white count 7.5, hemoglobin 7.5. Sodium 138, potassium 5, chloride 100, carbon dioxide 20, BUN 49, creatinine 4.69, glucose 65, calcium 9.5. July 23, 2018; cardiac echo was done, which showed EF of 50% to 55%. ASSESSMENT AND PLAN: 1. Congestive heart failure-the patient has a normal EF. Consideration for diastolic dysfunction remains. Congestive heart failure remains unimproved. We are trying to max out fluid removal with dialysis with this patient. I would consider re-consulting Cardiology for this patient due to the unimproved congestive heart failure. 2. Anemia, currently on weekly Epogen, p.r.n. blood transfusion. 3. End-stage renal disease. We are continuing the Wednesday, Wednesday, Wednesday dialysis regimen with this patient. Job ID: [id number]
[2018-07-25 10:19] LABS: Vancomycin, Random 9.6 ug/mL (See Comment)
[2018-07-25] MEDS ORDERED: Vancomycin HCl 1 GM in Premix Bag 1 BAG IVPB SCH (12:00)
[2018-07-25] MEDS: Carvedilol 3.125 MG TAB PO SCH ×2 (12:27→17:31)
[2018-07-25] MEDS: Apixaban 2.5 MG TAB PO SCH ×2 (12:27→21:05)
[2018-07-25] MEDS: azaTHIOprine 50 MG TAB PO SCH (12:28)
[2018-07-25] MEDS: Folic Acid 1 MG TAB PO SCH (12:29)
--- NOTE | 2018-07-25 17:01 | CON ---
DATE OF CONSULTATION: 07/25/2018 REASON FOR CONSULT: Heart failure. PRIMARY LEVER MILLER: Lisbeth Castillo MD HISTORY OF PRESENT ILLNESS: Ms. Curiel is a very pleasant 88-year-old white female, who comes to the hospital for shortness of breath. She was found to be in volume overload. She has end-stage renal disease and she was started on dialysis. Dr. Oakes is following her for her dialysis, who has been trying to get her dry and has been unable to get a significant amount of fluids out, so Cardiology is being consulted to evaluate for possible diastolic heart failure. Looking at her echo , she has an EF about 50% to 55% and diastolic dysfunction. This is only grade 1. PAST MEDICAL HISTORY: 1. Severe aortic stenosis status post bioprosthetic aortic valve in 2016 in [place]. 2. Lupus nephritis. 3. End-stage renal disease secondary to lupus nephritis on dialysis Wednesday, , and Wednesday by Dr. Oakes. 4. Hypertension. 5. Hyperlipidemia. 6. Type 2 diabetes. 7. Chronic diastolic heart failure. PAST SURGICAL HISTORY: 1. Aortic valve replacement as above. 2. Total hysterectomy. 3. Appendectomy. 4. Tonsillectomy. 5. Bilateral lens replacement. 6. Mastectomy. FAMILY HISTORY: Father had an FL. SOCIAL HISTORY: No alcohol, tobacco, or drugs. 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 ALLERGIES: HYDRALAZINE. OUTPATIENT MEDICATIONS: Include: 1. MiraLAX. 2. Xopenex. 3. Robitussin. 4. Glipizide. 5. Latanoprost. 6. ProAir. 7. Tylenol. 8. Lipitor 10 mg q.p.m. 9. Eliquis 2.5 mg b.i.d. 10. Norvasc 5 mg b.i.d. 11. Sensipar. 12. Vitamin B12. 13. Folate. 14. Imodium p.r.n. 15. Lidocaine ointment p.r.n. 16. Synthroid 25 mcg a day. 17. Zofran 4 mg p.r.n. 18. Remeron. 19. Ativan. 20. Renvela. 21. Protonix. 22. Imuran 150 mg a day. 23. Prednisone 40 mg q.a.m. REVIEW OF SYSTEMS: A 12-point review of systems was done and was found to be negative unless stated in the history of present illness. PHYSICAL EXAMINATION: VITAL SIGNS: Temperature 98.5, pulse 91, respiratory rate 20, saturation 96% on 3.5 nasal cannula, and blood pressure 123/67. GENERAL: Awake, alert, and oriented x3, in mild distress. HEENT: Normocephalic and atraumatic. NECK: Supple. LUNGS: Have mild crackles at the bases. Left lung base is without air movement. Consistent with a large pleural effusion. CARDIOVASCULAR: S1 and S2. No S3 or S4. ABDOMEN: Soft. Positive bowel sounds. EXTREMITIES: Trace edema. SKIN: Warm and dry. LABORATORY DATA: Laboratory work was reviewed. CBC with a hemoglobin of 7.5. Her levels were 10.6 back in May, so this 7.5 is new. Her baseline is about 10 as well. Chemistries were reviewed. Toxicology was reviewed. Vancomycin levels were reviewed. Most recent echocardiogram was done 2 days ago and shows an EF of 50% to 55% with large pleural effusion. Chest x-ray shows multilobar infiltrates. ASSESSMENT AND PLAN: 1. Hospital-acquired pneumonia. Pleural effusion may be from volume overload but consider infectious source May need thoracenthesis. 2. Acute on chronic diastolic heart failure. 3. End-stage renal disease, volume overload. Difficult to get fluid out from drop in blood pressure during dialysis. 4. Severe aortic stenosis status post bioprosthetic valve, normal functioning on echo done 2 days ago. 5. Hypothyroidism. We will check thyroid studies. 6. Anemia of chronic disease. We would recommend blood transfusion to try to get her hemoglobin up to above 9 at least. Ideally above 10. 7. Dr. Castillo, her primary can repairer, will follow up in the morning. Job ID: [id number] MTDD
[2018-07-25] MEDS: Cinacalcet HCl 30 MG TAB PO SCH (17:31)
[2018-07-25] MEDS ORDERED: Temazepam 15 MG CAP PO PRN (19:23)
[2018-07-25] MEDS ORDERED: Morphine 4 MG/ML VIAL SLOW IVP PRN (19:23)
[2018-07-25] MEDS: Furosemide 40 MG/4 ML VIAL ONE ×2 (20:52→22:06)
[2018-07-25] MEDS: Mirtazapine 15 MG TAB PO SCH (21:06)
[2018-07-25] MEDS: Atorvastatin Calcium 10 MG TAB PO SCH (21:06)
--- NOTE | 2018-07-25 23:43 | PRG ---
DATE OF SERVICE: 07/25/2018 HISTORY OF PRESENT ILLNESS: The patient has been undergoing daily dialysis over the weekend. After discontinuing and reducing the patient's blood pressure medications, she has been tolerating dialysis better from a blood pressure standpoint, however, is continuing to get weaker. Following consultation of Cardiology to review of intact systolic ejection fraction, Dr. Zamora recommending that given the patient's anemia with hemoglobin of 7.5, that she likely maybe symptomatic from a respiratory standpoint and needs blood transfusion with a goal of 9 to 10 for cardiac capacity. The patient has not been able to participate with physical therapy secondary to energy and has not been able to participate with speech therapy today with prior history of dysphagia per family members. Gastroenterology did follow the patient over the weekend recommending a barium swallow study on a nonemergent basis. Chest x-ray this morning continues to show multifocal infiltrates and congestive heart failure. On review of vital signs, temperature of 98.5, pulse of 91, respiratory rate of 20, oxygen saturation of 96%, the patient on 3 L nasal cannula. Blood pressure 123/67. LABORATORY DATA: Sodium 138, potassium of 5.0, chloride of 100, BUN of 4.69, glucose 188 to 200 last 16 hours. Hemoglobin is 7.5, MCV of 112, platelet count of 177. On further HPI, the patient states she is actively short of breath following dialysis today. Had stated on admission that she wanted to be full code. She had signed paperwork of hospital basis for DNR/DNI. Today at bedside, she states that she wants to honor the hospital decision and be placed DNR/DNI as she does not want to continue to suffer through daily dialysis if that is to keep her lungs clear. She verbalized understanding at bedside. On review with the patient, she had not been receiving her CPAP at night as it was ordered p.r.n., but nursing staff had not contacted our Respiratory Therapy given the patient's stability on nasal cannula rather than placing on every nap and at bedtime. RT evaluated the patient at bedside later this evening and noted the patient's shortness of breath, difficulty breathing. Given the fact, the patient was going to be transfused 2 units of PRBCs, the patient transferred to for IMCU step-down with confirmation of patient's DNR/DNI status. I do not feel this is worsening of pneumonia at this point in time, however, that maybe continuing of volume overload and symptomatic anemia. I hope that the patient's blood transfusions will help her with shortness of breath and CPAP tonight will help her sleep better. We will follow up, discontinue the IV antibiotics with continuation of Levaquin alone to help with reduction and intake of IV fluids, especially since the patient will be receiving 2 units of blood and will have to be dialyzed for any remainder of fluid. We will follow along with white blood cell counts and temperature profiles to see if we need to re-escalate antibiotics, however, cultures did not show anything concerning. The patient has not had a fever while inpatient. PHYSICAL EXAMINATION: GENERAL: The patient is alert and oriented, in minor respiratory distress. HEENT: Head is normocephalic, atraumatic. Nasal cannula place. Oral mucosa is moist. HEART: With harsh systolic murmur. LUNGS: With crackles bilaterally and expiratory wheezes. ABDOMEN: Soft, nontender. Positive bowel sounds throughout. EXTREMITIES: Lower extremities without cyanosis or edema. NEUROLOGIC: The patient is alert and oriented x3. No focal deficits. Speech is normal. ASSESSMENT AND PLAN: Symptomatic anemia; hospital-acquired pneumonia; end-stage renal disease, on hemodialysis; acute on chronic congestive heart failure; acute respiratory failure. We will follow up with the patient in the morning following a blood transfusion and dialysis. Follow up on any further recommendations from Cardiology and Nephrology. If the patient is able to regain further strength, we will have the patient participate with therapy services. We will cover with CPAP tonight with respiratory therapy. Per Case Management note, family and patient do not want to go to a [facility] facility on discharge. They have hired a 24-hour sitting and aide service, aide is at bedside tonight. Job ID: [id number]
--- NOTE | 2018-07-26 | PRG ---
DATE OF SERVICE: 07/25/2018 SUBJECTIVE: I was called by Nursing for patient being more short of breath and hypoxic. She was not keeping her CPAP on and refusing, as she was desaturating down into the 70s and 80s. It had been discussed with her primary care about using the CPAP and the patient does not want to do that due to the desaturation. We decided to transfer her to the [facility] and to place her on BiPAP. The patient was transferred, BiPAP was applied and she has been doing much better and more comfortable and her oxygenation is remaining in the 90s on the BiPAP. The patient was recently seen by Dr. Robles earlier today. She was ordered to receive transfusion of packed red blood cells. She was seen by Dr. Zamora earlier today as well for her heart failure. A recent chest x-ray earlier today revealed persistent multifocal interstitial alveolar infiltrates, cardiomegaly as well as congestive heart failure. She was dialyzed today with little improvement in her fluid status. OBJECTIVE: VITAL SIGNS: Temperature 98.3, pulse of 90 to 115, respirations 20 to 34 prior to BiPAP, O2 saturation 85% on 4 L nasal cannula and now 93% to 95% on BiPAP. GENERAL: She is asleep, but comfortable, tolerating the BiPAP. HEART: Irregular. LUNGS: With scattered rhonchi and occasional wheezes. ABDOMEN: Soft. EXTREMITIES: With edema. LABORATORY DATA: Reviewed. She has had a slow decline in her hemoglobin and hematocrit down to 7.5 and 25.0 today. Sodium 138, potassium 5.0, chloride 100 , CO2 of 20, BUN and creatinine of 49 and 4.69 with a GFR of 9. Chest x-ray as described above. ASSESSMENT AND PLAN: 1. This is a 88-year-old female with multiple medical problems including end- stage renal disease, diastolic heart failure, advanced age, reactive airway disease, obstructive sleep apnea, status post aortic valve replacement, vasculitis; now admitted with healthcare pneumonia. Due to her decompensation tonight, she was transferred to the [facility] and placed on BiPAP. Apparently, Dr. Robles and the patient had a discussion today and she did decide to be DNAR from this point forward as discussed. I discussed with her who agreed with that at this point and that will be continued. 2. History of pneumonia in the past with obstructive sleep apnea. Will notify Dr. Brading in the morning. 3. Diastolic heart failure. We will continue to monitor fluid status. 4. Anemia of chronic disease, worsened by end-stage renal disease. We will change transfusion to just 1 unit tonight and monitor her closely due to her heart failure since she has improved significantly with the BiPAP. 5. We will continue antibiotics for multilobar pneumonia. 6. ESRD. Continue hemodialysis per nephrology I had discussion with about the grave condition that she is in and he is understanding. I will continue to monitor closely. Job ID: [id number] SEAN
[2018-07-26 04:48] LABS: ALT (SGPT) 10 U/L (8-55); AST (SGOT) 15 U/L (5-34); Albumin 2.4 g/dL (3.4-4.8); Alkaline Phosphatase 69 U/L (40-150); Anion Gap 20 mmol/L (10-20); BUN (Urea Nitrogen) 24 mg/dL (9.8-20.1); Bilirubin, Total 0.7 mg/dL (0.2-1.2); Calc. Creatinine Clearance 16 mL/min (70-130); Calcium 9.7 mg/dL (7.8-10.44); Carbon Dioxide 23 mmol/L (23-31); Chloride 101 mmol/L (98-107); Estimated GFR-MDRD 15; Globulin 2.3 g/dL (2.4-3.5); Glucose 119 mg/dL (83-110); Potassium 3.7 mmol/L (3.5-5.1); Protein, Total 4.7 g/dL (6.0-8.3); Sodium 140 mmol/L (136-145)
[2018-07-26 05:07] LABS: #Eosinphils 0.1 thou/uL (0.0-0.7); #Lymphocytes 0.4 thou/uL (1.20-3.40); #Monocytes 0.1 thou/uL (0.11-0.59); #Neutrophils 5.5 thou/uL (1.40-6.50); %Basophils 0.1 % (0.0-1.0); %Eosinophils 1.7 % (0.0-10.0); %Monocytes 1.4 % (0.0-10.0); %Neutrophils 89.8 % (42.0-75.0); Hemoglobin 8.8 g/dL (12.0-16.0); Mean Corpuscular HGB CONC 30.3 g/dL (32.0-36.0); Mean Corpuscular Hemoglobin 32.2 pg (27.0-31.0); Mean Platelet Volume 8.3 fL (7.4-10.4); Platelet Count 169 thou/uL (130-400); RBC Distribution Width 19.2 % (11.5-14.5); Red Blood Cell (RBC) Count 2.74 mill/uL (4.20-5.40); White Blood Cell (WBC) Count 6.2 thou/uL (4.8-10.8)
[2018-07-26] MEDS: Levothyroxine Sodium 25 MCG TAB PO SCH (06:18)
--- NOTE | 2018-07-26 08:20 | RAD ---
AP CHEST: History: Pneumonia. Congestive heart failure. Date: 07-26-18 Comparison: 07-25-18 FINDINGS: AP chest demonstrates surgical clips seen in both axillary regions. EKG leads seen over the chest. There is a intracardiac stent. Bilateral pleural effusions are seen. Pulmonary vascular congestion is seen. IMPRESSION: 1. Bilateral pleural effusions. 2. Diffuse airspace opacities concerning for pulmonary edema. Radiographic appearance of the chest is stable and unchanged. POS: [facility]
[2018-07-26] MEDS: Sevelamer Carbonate 800 MG TAB PO SCH ×3 (09:04→18:08)
[2018-07-26] MEDS: Lorazepam 0.5 MG TAB PO PRN (09:04)
[2018-07-26] MEDS: Carvedilol 3.125 MG TAB PO SCH ×2 (09:06→18:07)
[2018-07-26] MEDS: azaTHIOprine 50 MG TAB PO SCH (09:06)
[2018-07-26] MEDS: Folic Acid 1 MG TAB PO SCH (09:06)
[2018-07-26] MEDS: Apixaban 2.5 MG TAB PO SCH ×2 (09:24→20:52)
--- NOTE | 2018-07-26 09:36 | PRG ---
DATE OF SERVICE: 07/26/2018 HISTORY OF PRESENT ILLNESS: Following RT and nursing evaluation at bedside for CPAP last night, requested on-call physician transferred the patient to [facility]. The patient was transferred without difficulty, placed on BiPAP overnight with much improved sleep per the patient. She also received 2 units of PRBCs for symptomatic anemia. The patient's breathing status was actually getting worse following daily dialysis with reduction in the patient's blood pressure medication, so further fluid could be removed as well as HCAP coverage on antibiotics. Had discontinued additional IV fluid medications including her IV antibiotics last night. She has not had any breakthrough fevers or anything growing on culture. Would prefer to move forward with oral antibiotics as possible. Pulmonology was consulted last night, will likely see today. We will follow up on their recommendations. Speaking with the patient last night, she confirmed DNR/DNI status, which she had already made plans for an outpatient basis, but earlier on admission, she had revoked, but reaffirmed them yesterday evening. Continues to not want any intubation or resuscitation efforts. This morning, the patient is breathing much more comfortably following blood transfusion on 3 L nasal cannula. Following 1 unit of PRBCs, appropriate rise from 7.5 hemoglobin to 8.8. Creatinine this morning down to 2.89, sodium of 140, potassium of 3.7, albumin of 2.4, glucose is 88 to 140 last 16 hours. Chest x-ray from this morning pending. PHYSICAL EXAMINATION: GENERAL: The patient is alert, in improved respiratory distress. HEAD: Normocephalic, atraumatic. Extraocular movements are intact. Sclerae are white. Nasal cannula in place. Oral mucosa is moist. NECK: Supple. HEART: With much improved murmur following 1 unit of PRBCs, but still has slight systolic character to it. LUNGS: With coarse breath sounds bilaterally. Slight improved expiratory wheezes. ABDOMEN: Soft, nontender. Positive bowel sounds throughout. EXTREMITIES: Lower extremities without cyanosis or edema. NEURO: The patient is alert and oriented x3 with no focal deficits. Speech is normal. ASSESSMENT AND PLAN: Acute on chronic respiratory failure, health care-associated pneumonia, end-stage renal disease, on hemodialysis, typically Wednesday, Wednesday, and Wednesday, but has been on daily dialysis since admission. The patient has multinodular thyroid, obstructive sleep apnea, on CPAP at home; acute on chronic diastolic congestive heart failure. Repeat echo this hospitalization showed no further decline in ejection fraction of 50% to 55% from last year. The patient is status post aortic valve replacement, on anticoagulation. The patient has had some element of dysphagia, which is at baseline, although the patient has had deconditioning and apparent protein malnutrition, looks like severe present on admission. As the patient has been bed bound to wheelchair bound for the last 3 weeks prior to hospitalization, has not been able to participate in therapy services, was unable to participate with Speech Therapy Services secondary to respiratory difficulty and fatigue following dialysis. For her symptomatic anemia, we will transfuse [address] Zamora's recommendations, agree with a goal of 9 to 10. We will follow up repeat H and H later this afternoon after the patient's second unit of blood has been fully administered. We will follow up on car detailer's recommendations and take the guidance for any further antibiotics. Job ID: [id number]
--- NOTE | 2018-07-26 09:52 | PRG ---
DATE OF SERVICE: 07/26/2018 RENAL MEDICINE SUBJECTIVE: Ms. Curiel is an 88-year-old white female with ESRD, who was admitted for shortness of breath/CHF. We are attempting to do fluid removal, but she is not tolerating this. Chest x-ray remains unimproved, still shows CHF. Of interest, the cardiac echo showed a normal EF. Cardiology consult has been done. We are planning to do a short 2-hour ultrafiltration for simple fluid removal today. Hopefully, she will tolerate the said treatment. She is feeling a little better. OBJECTIVE: VITAL SIGNS: Blood pressure is 137/99, heart rate 97, respiratory rate 20, temperature 97.8, and pulse ox 95%. GENERAL: Noted to be awake, supine, comfortable, not in overt distress. SKIN: Adequate turgor. HEENT: Slightly pale conjunctivae. Anicteric sclerae. No neck mass. No carotid bruits. No JVD. CHEST: No deformities. LUNGS: Decreased breath sounds. HEART: Normal sinus rhythm. No murmurs. No gallops. No rubs. ABDOMEN: Globular, soft, nontender. No masses. EXTREMITIES: Positive for edema. No deformities. MEDICATIONS: Medications of July 26, 2018 was reviewed. LABORATORY DATA: Laboratories of July 26, 2018; white count 6.2, hemoglobin 8.8, hematocrit 29.1. Sodium 140, potassium 3.7, chloride 101, carbon dioxide 23, BUN 24, creatinine 2.89, and albumin 2.4. Chest x-ray shows CHF. ASSESSMENT AND PLAN: 1. Shortness of breath/congestive heart failure-we will do a 2-hour ultrafiltration. Hopefully, she will tolerate the said treatment. We will attempt 2 liters fluid removal as tolerated by this patient. Please note, we were able to remove slightly more than 1 L with the hemodialysis yesterday, but this was limited fluid removal due to the fact she drop her blood pressure. 2. End-stage renal disease, stable. We will continue current Wednesday, Wednesday, Wednesday dialysis. Extra treatment today due to volume overload. 3. Anemia status post blood transfusion. Continue weekly Epogen. Overall prognosis remains guarded. Case discussed with the nephew. Job ID: [id number]
--- NOTE | 2018-07-26 10:38 | PDOC.CTH ---
Cardiology Progress Note - Subjective Pt. seen and eval. by me. She is awake and alert. Very weak. productive cough of brown sputum. Plan for dialysis today.CXR still indicates vol. overload. - Objective Vital Signs Temp Pulse Pulse Resp BP BP Pulse Ox 07/26/18 08:07 100 18 07/26/18 07:28 97.8 F 97 20 137/99 H 95 07/26/18 04:00 98.7 F 110 H 19 133/75 93 L 07/26/18 02:25 16 98 07/26/18 02:07 97.4 F L 78 19 142/79 H 94 L 07/26/18 00:00 97.6 F 85 18 123/63 94 L 07/25/18 23:48 97.0 F L 80 15 111/60 07/25/18 23:33 97.5 F L 18 93 L Admit Weight 160 lb 4 oz Weight 158 lb 1.143 oz 07/25/18 07/26/18 07/27/18 06:59 06:59 06:59 Intake Total 660 350 Output Total 0 Balance 660 350 - Physical Examination General/Neuro: alert & oriented x3 Neck: no JVD present Lungs: other: (bilat. decr. BS, Right- wheeze late expiratory.Bilat. rales.) Heart: RRR, other: (frequent ectopy.) Abdomen: NT/ND, soft Extremities: other: (no edema) - Telemetry Telemetry Rhythm: NSR.PAC's. - Labs Result Diagrams: 07/26/18 04:05 07/26/18 04:05 Troponin/CKMB CK-MB (CK-2) 1.1 ng/mL (0-6.6) 07/20/18 20:21 Troponin I 0.254 ng/mL (< 0.028) H 07/20/18 20:21 - Assessment/Plan 1.ESRD: on hemodialysis. Difficult to dialyze due to drop in BP. Pt. does have diastolic dysfunction and some degree of . The Syst. fx. is normal. Continue with dialysis for vol. overload. 2. Anemia. Would try to keep Hgb. around 10. 3. S/P AVR. Normal function by echo. 4. Diastolic dysfunction. 5. Hospital vs Community aquired PNA. 6. Deconditioned.
[2018-07-26] MEDS ORDERED: Morphine 4 MG/ML VIAL SLOW IVP PRN (16:01)
[2018-07-26] MEDS: Cinacalcet HCl 30 MG TAB PO SCH (18:08)
[2018-07-26] MEDS: Hydrocortisone Sod Succ/PF 100 mg/2 ml Vial IVP SCH (18:08)
[2018-07-26] MEDS: Mirtazapine 15 MG TAB PO SCH (20:51)
[2018-07-26] MEDS: Atorvastatin Calcium 10 MG TAB PO SCH (20:51)
[2018-07-26] MEDS: Midodrine HCl 5 MG TAB PO SCH (20:52)
--- NOTE | 2018-07-26 22:37 | CON ---
DATE OF CONSULTATION: 07/26/2018 SERVICE: Pulmonary Medicine. REASON FOR CONSULTATION: [facility] patient. HISTORY OF PRESENT ILLNESS: The patient is an 88-year-old white female with past medical history significant for ANCA associated vasculitis. She has not had an active flare in the past several years. She has been in the hospital on several different occasions associated with volume mediated respiratory failure. She came to the hospital this time around with complaints of shortness of breath that progressed over a period of several days. This was worse with exertion and started affecting her nighttime sleep. She typically uses CPAP at night. Either way, she came to the emergency department because of this difficulty breathing. She denies any fevers or chills. She did not have a cough that was productive of any sputum with color. She was given IV fluids and IV antibiotics for the past 5 days. Ultimately, respiratory condition deteriorated to the point where yesterday, she was brought down to the ICU for initiation of noninvasive BiPAP therapy. She is talking in full sentences at this point. She denies any current fevers, chills, shortness of breath, nausea, or vomiting. She had dialysis yesterday. We are having a hard time pulling fluid off because of marginal blood pressures. PAST MEDICAL HISTORY: 1. Hypertension. 2. Dyslipidemia. 3. Coronary artery disease. 4. Type 2 diabetes mellitus. 5. Gastroesophageal reflux disease. 6. Chronic systolic and diastolic heart failure. 7. End-stage renal disease. 8. ANCA-associated vasculitis. 9. Deconditioning, severe. 10. Osteoporosis. 11. Obstructive sleep apnea, moderate. 12. Reactive airway disease. PAST SURGICAL HISTORY: 1. Hysterectomy. 2. Mastectomy, bilateral. 3. Cataract surgery, bilateral. 4. Appendectomy. 5. Tonsillectomy. 6. Aortic valve replacement. FAMILY HISTORY: Noncontributory. SOCIAL HISTORY: Negative for alcohol, tobacco, or illicit drug use. She lives in a nursing facility. She relies on others for most of her ADLs. ALLERGIES: HYDRALAZINE. MEDICATIONS: List of her inpatient medications was reviewed. Multiple updates were made. REVIEW OF SYSTEMS: General, head, ears, eyes, nose, throat, cardiovascular, respiratory, GI, , musculoskeletal, neurologic, and skin are negative except as mentioned in the HPI. PHYSICAL EXAMINATION: VITAL SIGNS: Afebrile, pulse 93, blood pressure 138/74, respirations 20, saturation 97% on BiPAP. GENERAL: The patient is awake and alert, in no apparent distress. LUNGS: Decent air entry. Crackles are extensive throughout bilateral lung emmanuel. There is no prolonged expiratory phase or polyphonic wheezing appreciated. HEART: Normal rate and regular. ABDOMEN: Soft, nontender, and nondistended. Bowel sounds are positive. MUSCULOSKELETAL: No cyanosis or clubbing. No pitting in the bilateral lower extremities. NEUROLOGIC: Grossly nonfocal. LABORATORY DATA: WBC 6.2, hemoglobin 8.8, and platelets 169,000. Neutrophil count is 90%. Creatinine 2.83. Basic metabolic profile and liver function studies are otherwise unremarkable. Blood cultures x2 and influenza A and B are negative. IMAGIN. Chest x-ray demonstrates bilateral effusions and pulmonary vascular congestion. 2. Echocardiogram demonstrates normal ejection fraction. There is diastolic dysfunction and mild valvular disease. Massive pleural effusions are identified. ASSESSMENT: 1. Acute hypoxic respiratory failure. 2. End-stage renal disease. 3. Bilateral pleural effusions. 4. Healthcare-associated pneumonia, status post 5 days of antibiotics. DISCUSSION AND PLAN: The patient has healthcare associated pneumonia. If present, has been completely treated. I will check her ANCA level. We will initiate stress doses of steroids given her marginal blood pressures. If ANCAs are elevated, full dose steroids will be considered, though I am doubtful that she is having a relapse of her ANCA associated vasculitis. All blood pressure medications have been interrupted. We will give her midodrine to see if this will facilitate fluid removal with dialysis, which she will need frequently. I will continue her BiPAP through time. If we have a hard time pulling fluid off, thoracentesis will be considered, particularly for respiratory failure advances. 70 minutes have been devoted to this patient in various activities. I personally reviewed all imaging studies and laboratory data noted within this document. For fifty percent of this time, I was interacting with the patient at the bedside or coordinating care with the care team. For the remainder of the time I was immediately available to the patient in the hospital unit. Job ID: [id number] [facility]
[2018-07-27] MEDS: Hydrocortisone Sod Succ/PF 100 mg/2 ml Vial IVP SCH ×4 (00:07→19:05)
[2018-07-27 05:05] LABS: Anion Gap 21 mmol/L (10-20); BUN (Urea Nitrogen) 36 mg/dL (9.8-20.1); Calc. Creatinine Clearance 15 mL/min (70-130); Calcium 9.7 mg/dL (7.8-10.44); Carbon Dioxide 22 mmol/L (23-31); Chloride 98 mmol/L (98-107); Estimated GFR-MDRD 15; Glucose 170 mg/dL (83-110); Potassium 4.3 mmol/L (3.5-5.1); Sodium 137 mmol/L (136-145)
[2018-07-27 05:14] LABS: #Eosinphils 0.1 thou/uL (0.0-0.7); #Lymphocytes 0.3 thou/uL (1.20-3.40); #Monocytes 0.1 thou/uL (0.11-0.59); #Neutrophils 5.6 thou/uL (1.40-6.50); %Basophils 0.2 % (0.0-1.0); %Eosinophils 1.2 % (0.0-10.0); %Lymphocytes 4.7 % (21.0-51.0); %Monocytes 0.8 % (0.0-10.0); %Neutrophils 93.1 % (42.0-75.0); Anisocytosis SLIGHT = 6-15 cells (100X) (0-5/hpf); Burr Cells MODERATE= 6-15 cells (100X) (0-1/hpf); MDiff Complete? YES; Macrocytosis SLIGHT = 6-15 cells (100X) (0-5/hpf); Mean Corpuscular HGB CONC 29.4 g/dL (32.0-36.0); Mean Corpuscular Hemoglobin 32.5 pg (27.0-31.0); Mean Platelet Volume 8.4 fL (7.4-10.4); Platelet Count 172 thou/uL (130-400); RBC Distribution Width 19.2 % (11.5-14.5); Red Blood Cell (RBC) Count 2.79 mill/uL (4.20-5.40)
[2018-07-27] MEDS: Levothyroxine Sodium 25 MCG TAB PO SCH (06:16)
[2018-07-27] MEDS: Sevelamer Carbonate 800 MG TAB PO SCH ×3 (09:14→19:03)
[2018-07-27] MEDS: Carvedilol 3.125 MG TAB PO SCH ×2 (09:14→20:25)
[2018-07-27] MEDS: Folic Acid 1 MG TAB PO SCH (09:15)
[2018-07-27] MEDS: azaTHIOprine 50 MG TAB PO SCH (09:15)
[2018-07-27] MEDS: Apixaban 2.5 MG TAB PO SCH ×2 (09:15→20:25)
[2018-07-27] MEDS: Midodrine HCl 5 MG TAB PO SCH ×3 (09:16→20:25)
--- NOTE | 2018-07-27 09:53 | PRG ---
DATE OF SERVICE: 07/27/2018 SUBJECTIVE: Ms. Curiel is an 88-year-old white female with ESRD and was admitted for shortness of breath and hypoxemia. Chest x-ray revealed significant pleural effusion and CHF. The patient has been undergoing almost daily dialysis to remove fluid removal. However, she is not tolerating the dialysis as well as fluid removal. Yesterday, I did an ultrafiltration. We were successfully able to remove about 1.2 L of fluid. She is now scheduled again for her regular hemodialysis today for 3 hours. Our plan is again to challenge her and remove as much fluid. Cardiology has been consulted as well as Pulmonary. Please note, previous echos showed a normal EF. Possibility of a thoracentesis is being considered. No new complaints. She tells me she is feeling a little better. OBJECTIVE: VITAL SIGNS: Blood pressure is noted at 139/70 with a heart rate of 80, respiratory rate 16, and pulse ox 94%. GENERAL: Noted to be awake, supine, comfortable, not in overt distress. SKIN: Adequate turgor. HEENT: She has pinkish conjunctivae. Anicteric sclerae. NECK: No neck mass. No carotid bruits. No JVD. CHEST: No deformities. LUNGS: Decreased breath sounds. HEART: Normal sinus rhythm. No murmurs, gallops, or rubs. ABDOMEN: Globular, soft, and nontender. No masses. EXTREMITIES: No edema. No deformities. MEDICATIONS: Medications of July 27, 2018, reviewed. LABORATORY DATA: Laboratories of July 27, 2018, white count 6 and hemoglobin 9. Sodium 137, potassium 4.3, chloride 98, carbon dioxide 22, BUN 36, creatinine 3.03, glucose 170, and calcium 9.7. ASSESSMENT AND PLAN: 1. Congestive heart failure/pleural effusion. We will attempt to max out fluid removal as tolerated by the patient with hemodialysis. 2. End-stage renal disease. Continuing Wednesday, Wednesday, and Wednesday dialysis. She gets p.r.n. extra ultrafiltration depending on her fluid status. Pulmonary and Cardiology consult has been done. 3. Anemia. Continuing weekly Epogen with the patient. Overall prognosis remains guarded. Job ID: [id number]
--- NOTE | 2018-07-27 10:17 | PRG ---
DATE OF SERVICE: 07/27/2018 SERVICE: Pulmonary Medicine. INTERVAL HISTORY: The patient is doing much better from respiratory standpoint. Her blood pressure has firmed up a little bit. She also has better color, and more strength today. She indicates having a little bit of shortness of breath. Otherwise, there has been no interval change to her condition. Nursing reports no overnight events. PHYSICAL EXAMINATION: VITAL SIGNS: Afebrile, pulse 91, blood pressure 139/70, respirations 20, and saturation 95% on 3 L nasal cannula. GENERAL: The patient is awake and alert, in no apparent distress. LUNGS: Excellent air entry. Dependent crackles are much improved. There is no prolonged expiratory phase or wheezing present. HEART: Normal rate and regular. ABDOMEN: Soft, nontender, and nondistended. Bowel sounds are positive. MUSCULOSKELETAL: Skin tenting is present throughout. No cyanosis or clubbing. LABORATORY DATA: WBC 6.0, hemoglobin 9.0 (inappropriate response to the 1 unit that she received), platelets 172,000. Creatinine 3.03, gently up-trending and BUN 36. Basic metabolic profile is otherwise unremarkable. Influenza A and B are negative, blood cultures x2 are unremarkable. ASSESSMENT: 1. Acute hypoxic respiratory failure. 2. End-stage renal disease. 3. Bilateral pleural effusions. 4. Healthcare-associated pneumonia, status post 5 days of antibiotics. 5. Antineutrophil cytoplasmic antibody associated vasculitis, dormant. 6. Obstructive sleep apnea, moderate. DISCUSSION AND PLAN: The ANCA titers are currently pending. Supportive measures will otherwise be continued. From my perspective, she is stable for transition out of the ICU to the telemetry unit. Palliative discussions will be continued as the patient has end-stage renal disease and is bed-bound at baseline. We will continue her noninvasive therapy moving forward. Job ID: [id number] [facility]
[2018-07-27] MEDS: Lorazepam 0.5 MG TAB PO PRN (10:36)
[2018-07-27 12:01] VITALS: BMI 25.7
[2018-07-27] MEDS: Cinacalcet HCl 30 MG TAB PO SCH (19:03)
--- NOTE | 2018-07-27 19:43 | PDOC.CTH ---
Cardiology Progress Note - Subjective The pt seen and examined. No overnight events. She cont. complaining of chronic fatigue. - Objective Vital Signs Temp Pulse Resp BP BP Pulse Ox 07/27/18 19:24 100 07/27/18 18:57 87 20 92 L 07/27/18 15:39 97.5 F L 84 28 H 141/58 H 85 L 07/27/18 13:07 28 H 93 L 07/27/18 13:06 77 21 H 93 L 07/27/18 11:13 97.9 F 89 32 H 139/67 86 L 07/27/18 10:33 21 H 92 L 07/27/18 08:00 86 L 07/27/18 07:57 80 16 94 L Admit Weight 160 lb 4 oz Weight 154 lb 12.232 oz 07/26/18 07/27/18 07/28/18 06:59 06:59 06:59 Intake Total 350 471 Output Total 0 1400 Balance 350 -929 - Physical Examination General/Neuro: alert & oriented x3 Lungs: other: (very diminished at bases) Heart: RRR Abdomen: soft Extremities: other: (no edema) - Telemetry Telemetry Rhythm: SR - Labs Result Diagrams: 07/27/18 04:28 07/27/18 04:28 Troponin/CKMB CK-MB (CK-2) 1.1 ng/mL (0-6.6) 07/20/18 20:21 Troponin I 0.254 ng/mL (< 0.028) H 07/20/18 20:21 - Assessment/Plan 1. ESRD: on hemodialysis. Difficult to dialyze due to drop in BP. Pt. does have diastolic dysfunction and some degree of . The Syst. fx. is normal. Continue with dialysis for vol. overload. Managed by building energy consultant 2. Anemia. On Epoetin; Would try to keep Hgb. around 10. 3. S/P AVR. Normal function by echo. 4. Diastolic dysfunction. 5. Hospital vs Community aquired PNA. 6. Deconditioned. MAR reviewed Pt. seen and eval. by me. I agree with the A/P by the BOARD LINER OPERATOR. Multiple medical issues. Poor prognosis. Review of Systems - Review of Systems Constitutional: reports: weakness EENTM: reports: no symptoms reported Respiratory: reports: no symptoms reported Cardiac (ROS): reports: no symptoms reported ABD/GI: reports: no symptoms reported
[2018-07-27] MEDS: Mirtazapine 15 MG TAB PO SCH (20:25)
[2018-07-27] MEDS: Atorvastatin Calcium 10 MG TAB PO SCH (20:25)
[2018-07-28] MEDS: Hydrocortisone Sod Succ/PF 100 mg/2 ml Vial IVP SCH ×4 (00:11→18:16)
--- NOTE | 2018-07-28 01:37 | PRG ---
DATE OF SERVICE: 07/27/2018 HISTORY OF PRESENT ILLNESS: The patient was continued on BiPAP and now is able to wean to nasal cannula while awake prior this afternoon with a temperature of 97.5, pulse of 87, respiratory rate of 20, oxygen saturation 92% on 3 L nasal cannula , and blood pressure 141/56. Hemoglobin today of 9.0 after 1 unit of PRBCs and white blood count of 6.0. The patient remains on daily dialysis. She states that she is tired, but comfortable enough on BiPAP earlier today. Continues to reaffirm DNR /DNI status. Per nursing report, she does state that she is reporting that she is tired of dialysis; however, when speaking with her this Wednesday, the patient wanted to continue dialysis at least for the time being. Palliative Care had been consulted, but the patient states that she is not ready for hospice. Given volume overload , second unit of PRBCs was reportedly not given. PHYSICAL EXAMINATION: GENERAL: The patient is fatigued, but oriented, stable on BiPAP without respiratory distress while not talking, has somewhat short sentences while talking, however, from respiratory effort. HEENT: Head, normocephalic and atraumatic. Extraocular movements are intact at the time of exam. BiPAP mask in place. HEART: Regular rate and rhythm at the time of exam with systolic murmur. LUNGS: With diminished breath sounds at the bilateral bases. Coarse bronchial breath sounds bilaterally. ABDOMEN: Soft and nontender. Positive bowel sounds throughout. EXTREMITIES: Lower extremities, without cyanosis or edema. NEUROLOGIC: Speech is normal. No focal deficits. ASSESSMENT AND PLAN: [id number] diastolic heart failure, end-stage renal disease, [id number] respiratory failure. Continuing current management. Dr. Prince started steroids and midodrine in addition to the patient's blood pressure medications have been severely reduced for maximum removal of fluid with dialysis. P-ANCA levels are pending. The patient has a private 24 hours sitter at this point in time, the family has provided wishes that if time comes when she is stable enough that she return to her assisted living status rather than SNF for an inpatient rehab. We will continue to keep open dialogue with family going and continue to assess the patient's desire for continuation of dialysis treatments and respiratory support. Job ID: [id number] [facility]
[2018-07-28 05:09] LABS: #Lymphocytes 0.3 thou/uL (1.20-3.40); #Monocytes 0.1 thou/uL (0.11-0.59); #Neutrophils 5.7 thou/uL (1.40-6.50); %Eosinophils 0.3 % (0.0-10.0); %Lymphocytes 4.3 % (21.0-51.0); %Neutrophils 93.4 % (42.0-75.0); Hemoglobin 8.4 g/dL (12.0-16.0); Mean Corpuscular HGB CONC 30.5 g/dL (32.0-36.0); Mean Corpuscular Hemoglobin 32.4 pg (27.0-31.0); Mean Platelet Volume 7.9 fL (7.4-10.4); Platelet Count 159 thou/uL (130-400); RBC Distribution Width 18.4 % (11.5-14.5); Red Blood Cell (RBC) Count 2.59 mill/uL (4.20-5.40); White Blood Cell (WBC) Count 6.1 thou/uL (4.8-10.8)
[2018-07-28] MEDS: Levothyroxine Sodium 25 MCG TAB PO SCH (05:35)
[2018-07-28] MEDS: HumaLOG 300 UNITS/3 ML VIAL SC PRN (05:38)
[2018-07-28 05:53] LABS: Anion Gap 18 mmol/L (10-20); BUN (Urea Nitrogen) 19 mg/dL (9.8-20.1); Calc. Creatinine Clearance 18 mL/min (70-130); Calcium 9.7 mg/dL (7.8-10.44); Carbon Dioxide 27 mmol/L (23-31); Chloride 97 mmol/L (98-107); Estimated GFR-MDRD 19; Glucose 173 mg/dL (83-110); Potassium 3.5 mmol/L (3.5-5.1); Sodium 138 mmol/L (136-145)
[2018-07-28] MEDS: Apixaban 2.5 MG TAB PO SCH ×2 (09:21→20:54)
[2018-07-28] MEDS: Sevelamer Carbonate 800 MG TAB PO SCH ×3 (09:22→18:15)
[2018-07-28] MEDS: azaTHIOprine 50 MG TAB PO SCH (09:23)
[2018-07-28] MEDS: Carvedilol 3.125 MG TAB PO SCH ×2 (09:23→18:16)
[2018-07-28] MEDS: Folic Acid 1 MG TAB PO SCH (09:31)
[2018-07-28] MEDS: Midodrine HCl 5 MG TAB PO SCH ×3 (09:31→20:54)
--- NOTE | 2018-07-28 10:02 | PRG ---
DATE OF SERVICE: 07/28/2018 SUBJECTIVE: Ms. Curiel is an 88-year-old white female, admitted for shortness of breath secondary to CHF. She has had cardiac evaluation. An EF was noted to be normal. Pulmonary has also evaluated this patient. We are currently aggressively dialyzing her. Fluid removal is being attempted to be removed, but, however, this is limited by her low blood pressure. She underwent hemodialysis yesterday. She tells me her breathing is better. No other complaints. OBJECTIVE: VITAL SIGNS: Blood pressure 109/72, heart rate 64, respiratory rate 20, temperature 97.7, and pulse ox 100% GENERAL: Noted to be awake, alert, comfortable, not in distress. SKIN: Adequate turgor. HEENT: Slightly pale conjunctivae. Anicteric sclerae. NECK: No neck mass. No carotid bruits. No JVD. CHEST: No deformities. LUNGS: Decreased breath sounds. HEART: Normal sinus rhythm. No murmurs. No gallops. No rubs. ABDOMEN: Globular, soft, and nontender. No masses. EXTREMITIES: Positive for edema. MEDICATIONS: Medications of 07/28/2018 reviewed. LABORATORY DATA: On 07/28/2018; white count 6.1, hemoglobin 8.4. Sodium 138, potassium 3.5, chloride is 97, carbon dioxide 27, BUN 19, creatinine 2.39, calcium 9.7. ASSESSMENT AND PLAN: 1. End-stage renal disease. Continuing Wednesday, Wednesday, and Wednesday hemodialysis. Again, fluid removal as tolerated by the patient. 2. Congestive heart failure, clinically improving. Shortness of breath is much decreased. However, chest x-ray still shows significant congestive heart failure. 3. Anemia. Continuing weekly Epogen. P.r.n. blood transfusion. Job ID: [id number]
--- NOTE | 2018-07-28 11:27 | PDOC.CTH ---
Cardiology Progress Note - Subjective The pt seen and examined. No overnight events. She stated she can breath slightly better today. - Objective Vital Signs Temp Pulse Resp BP BP Pulse Ox 07/28/18 08:14 94 L 07/28/18 08:12 98 20 94 L 07/28/18 08:00 97.7 F 64 20 109/72 100 07/28/18 03:53 97.5 F L 77 16 172/84 H 100 07/28/18 02:26 60 14 100 07/28/18 00:18 12 99 07/27/18 23:54 97.5 F L 66 22 H 146/68 H 99 Admit Weight 160 lb 4 oz Weight 152 lb 1.903 oz 07/27/18 07/28/18 07/29/18 06:59 06:59 06:59 Intake Total 471 240 Output Total 1400 1400 Balance -929 -1160 - Physical Examination General/Neuro: alert & oriented x3 Neck: no JVD present Lungs: other: (very diminished at bases) Heart: RRR Abdomen: soft Extremities: other: (No edema) - Telemetry Telemetry Rhythm: SR - Labs Result Diagrams: 07/29/18 04:27 07/29/18 04:27 Troponin/CKMB CK-MB (CK-2) 1.1 ng/mL (0-6.6) 07/20/18 20:21 Troponin I 0.254 ng/mL (< 0.028) H 07/20/18 20:21 - Assessment/Plan 1. ESRD: on hemodialysis. Difficult to dialyze due to drop in BP. Pt. does have diastolic dysfunction and some degree of . The Syst. fx. is normal. Continue with dialysis for vol. overload. Managed by learning and development consultant 2. Anemia. On Epoetin; Would try to keep Hgb. around 10. 3. S/P AVR. Normal function by echo. 4. Diastolic dysfunction - the pt's breathing is slowly improving 5. Hospital vs Community aquired PNA. 6. Deconditioned. MAR reviewed Pt. seen and eval. by me. I agree with the A/P by the STUDENT OUTREACH COORDINATOR. Multiple medical issues. Poor prognosis. Review of Systems - Review of Systems Constitutional: reports: weakness EENTM: reports: no symptoms reported Respiratory: reports: no symptoms reported Cardiac (ROS): reports: no symptoms reported ABD/GI: reports: no symptoms reported : reports: no symptoms reported
--- NOTE | 2018-07-28 12:10 | PRG ---
DATE OF SERVICE: 07/28/2018 SERVICE: Pulmonary Medicine. INTERVAL HISTORY: The patient feels like she is stronger today. She indicates she is less dizzy. She denies any current fevers, chills, nausea, or vomiting. There are no significant overnight events. PHYSICAL EXAMINATION: VITAL SIGNS: Afebrile, blood pressure 109/72, respirations 20, saturation 94% on 3 L nasal cannula. GENERAL: The patient is awake and alert, in no apparent distress. LUNGS: Decent air entry with no prolonged expiratory phase. Dependent crackles are minimal. There is no wheezing or rhonchi appreciated. HEART: Normal rate and regular. ABDOMEN: Soft, nontender, and nondistended. Bowel sounds are positive. MUSCULOSKELETAL: No cyanosis or clubbing. No pitting in the bilateral lower extremities. NEUROLOGIC: Grossly nonfocal. LABORATORY DATA: WBC 6.1, hemoglobin 8.4, and platelets 159,000. Creatinine 2.39. Basic metabolic profile is otherwise unremarkable. Potassium 3.5. Influenza A and B, blood cultures x2 are negative. ASSESSMENT: 1. Acute hypoxic respiratory failure, improving. 2. End-stage renal disease. 3. Bilateral pleural effusions, likely associated with volume overload. 4. Healthcare-associated pneumonia, status post 5 days of antibiotics. 5. Antineutrophil cytoplasmic antibody-associated vasculitis, dormant. 6. Obstructive sleep apnea. DISCUSSION AND PLAN: ANCA studies are currently pending. If the titers are low , likelihood of this being a flare is extremely low. I will repeat a chest x-ray tomorrow morning. We will continue to take off whatever volume she allows us to , but from an intravascular standpoint, she is likely fairly depleted. Pulmonary will continue to follow along. Job ID: [id number] [facility]
[2018-07-28] MEDS: Epoetin (ESRD) 20,000 UNITS/ML SC SCH (14:32)
[2018-07-28] MEDS: Cinacalcet HCl 30 MG TAB PO SCH (18:15)
--- NOTE | 2018-07-28 18:28 | PRG ---
DATE OF SERVICE: 07/28/2018 HISTORY OF PRESENT ILLNESS: The patient at this point in time still wants to continue with dialysis and respiratory treatments. Speaking with nursing staff, coordinating with Dr. Prince's team, the patient has no longer required BiPAP settings; however, is stable on home CPAP settings and was recommended for floor status as when she is awake, she is saturating at 95% to 98% on 3 L nasal cannula. When she is asleep, she is on CPAP, BiPAP with oxygen saturations at 99% to 100% with little difficulty in ventilation. The patient continued daily dialysis with attempts to remove as much fluid as possible. Following transfusion, the patient's hemoglobin trended down slightly to 8.4, after 1 unit of PRBCs transfused. Platelet count of 159. Creatinine down to 2.39 with daily dialysis. Blood glucose is 193 to 148 last 16 hours. The patient has been titrated off antibiotics and is receiving daily chest x-rays. Blood pressure 112/67 on midodrine and reduced beta-davie. The patient appears to be tolerating steroid well. Speech Therapy recommended changing the patient's diet to mechanically soft for better nutrition with swallow and supplemental shakes at least b.i.d. per Dietary recommendation. However, the patient has had little to no appetite. Oral intake is around 500 mL per nursing staff at best and down to 50 mL on 07/24/2018. PHYSICAL EXAMINATION: GENERAL: The patient is alert, oriented, is fatigued. No acute distress. HEAD/NECK: Normocephalic, atraumatic. Extraocular movements are intact. Oral mucosa is moist. Neck is supple. Nasal cannula in place. HEART: Regular rate and rhythm with harsh systolic murmur. LUNGS: With diminished breath sounds bilaterally, coarse bronchial breath sounds. EXTREMITIES: Lower extremities without cyanosis or edema. ABDOMEN: Soft, nontender, positive bowel sounds throughout. NEURO: The patient is alert and oriented x3. No focal deficits. Speech is normal. ASSESSMENT AND PLAN: End-stage renal disease, on hemodialysis; diastolic congestive heart failure; symptomatic anemia; dysphagia; deconditioning; protein malnutrition; status post aortic valve replacement, on anticoagulation; ANCA vasculitis of kidneys; nodular thyroid disease; obstructive sleep apnea, on CPAP. The patient is making slow progress. We will continue to follow along with Pulmonology and Nephrology's recommendations. Un unclear if the patient requires another transfusion yet as additional volume she is certainly struggle with, but her hemoglobin has slowly titrated down. The patient is tolerating current therapy well; however, unable to participate with physical therapy, which has been discontinued while in IMCU and with little to no diet and barely drinking anything, the patient's long-term prognosis is still very guarded and poor. We will continue to follow. Job ID: [id number]
[2018-07-28] MEDS: Mirtazapine 15 MG TAB PO SCH (20:53)
[2018-07-28] MEDS: Atorvastatin Calcium 10 MG TAB PO SCH (20:54)
[2018-07-28] MEDS ORDERED: HumaLOG 300 UNITS/3 ML VIAL SC PRN (21:12)
--- NOTE | 2018-07-28 23:15 | EKG ---
Test Reason : STAT Blood Pressure : / mmHG Vent. Rate : 099 BPM Atrial Rate : 099 BPM P-R Int : 164 ms QRS Dur : 090 ms QT Int : 348 ms P-R-T Axes : 047 -22 067 degrees QTc Int : 446 ms Sinus rhythm with PAC's Nonspecific ST and T wave abnormality Abnormal ECG When compared with ECG of 20-JUL-2018 20:27, No significant change was found Confirmed by GURU SANTILLAN M.D. ([id number] on 07/28/2018 11:15:22 PM Referred By: VON Confirmed By:GURU SANTILLAN M.D.
[2018-07-29] MEDS: Hydrocortisone Sod Succ/PF 100 mg/2 ml Vial IVP SCH ×4 (00:31→17:45)
[2018-07-29 04:59] LABS: Hemoglobin 8.1 g/dL (12.0-16.0)
[2018-07-29 05:15] LABS: Anion Gap 18 mmol/L (10-20); BUN (Urea Nitrogen) 32 mg/dL (9.8-20.1); Calc. Creatinine Clearance 12 mL/min (70-130); Calcium 9.5 mg/dL (7.8-10.44); Carbon Dioxide 24 mmol/L (23-31); Chloride 97 mmol/L (98-107); Estimated GFR-MDRD 12; Glucose 197 mg/dL (83-110); Phosphorus 4.8 mg/dL (2.3-4.7); Potassium 3.6 mmol/L (3.5-5.1); Sodium 135 mmol/L (136-145)
[2018-07-29] MEDS: Levothyroxine Sodium 25 MCG TAB PO SCH (06:33)
[2018-07-29] MEDS: HumaLOG 300 UNITS/3 ML VIAL SC PRN (06:33)
[2018-07-29] MEDS ORDERED: Labetalol HCl 100 MG/20 ML VIAL ONE (08:16)
[2018-07-29] MEDS: azaTHIOprine 50 MG TAB PO SCH (09:04)
[2018-07-29] MEDS: Lorazepam 0.5 MG TAB PO PRN (09:04)
[2018-07-29] MEDS: Folic Acid 1 MG TAB PO SCH (09:04)
[2018-07-29] MEDS: Apixaban 2.5 MG TAB PO SCH (09:04)
[2018-07-29] MEDS: Carvedilol 3.125 MG TAB PO SCH ×2 (09:04→16:57)
[2018-07-29] MEDS: Sevelamer Carbonate 800 MG TAB PO SCH ×2 (09:04→11:58)
[2018-07-29] MEDS: Midodrine HCl 5 MG TAB PO SCH (09:44)
--- NOTE | 2018-07-29 09:45 | RAD ---
PORTABLE CHEST: Indications: ICU daily follow up. Shortness of breath. Comparison: 07-26-18 FINDINGS: There is confluent opacity in the left lung base consistent with left effusion and left basilar atele ctasis/consolidation. Evidence of small right effusion. Mild vascular engorgement. The vascular congestion has improved when compared to 07-26-18. IMPRESSION: 1. Improvement in vascular congestion. 2. Left lower lobe opacity consistent with effusion and left basilar atelectasis/consolidation. POS: [facility]
--- NOTE | 2018-07-29 09:53 | PRG ---
DATE OF SERVICE: 07/29/2018 SERVICE: Pulmonary Medicine. INTERVAL HISTORY: The patient is doing okay from respiratory standpoint. Denies any current chest pain, fevers, or chills. Overnight, there were no overnight events. She rested fairly comfortably on her BiPAP. Otherwise, she has no specific complaints. PHYSICAL EXAMINATION: VITAL SIGNS: Afebrile, pulse 80, blood pressure 121/74, respirations 22, and saturation 94% on 3 L nasal cannula. GENERAL: The patient is awake and alert, in no apparent distress. LUNGS: Crackles are present in the bibasilar region. There is slightly decreased air entry at the left base. No prolonged expiratory phase or wheezing is appreciated. HEART: Normal rate and regular. ABDOMEN: Soft, nontender, and nondistended. Bowel sounds are positive. MUSCULOSKELETAL: No cyanosis or clubbing. No pitting in the bilateral lower extremities. NEUROLOGIC: Grossly nonfocal. LABORATORY DATA: Hemoglobin 8.1. Creatinine 3.53, BUN 32. Basic metabolic profile is otherwise unremarkable. Phosphorus is 4.8. Blood cultures x2 and influenza A and B are unremarkable. IMAGING: Chest x-ray demonstrates improved parenchymal changes in bilateral lung emmanuel. She has a left lower lobe consolidation and/or pleural parenchymal abnormality. ASSESSMENT: 1. Acute hypoxic respiratory failure. 2. End-stage renal disease. 3. Bilateral pleural effusions, greater on the left, likely associated with volume overload. 4. Healthcare-associated pneumonia, status post five days of antibiotics. 5. 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 6. Obstructive sleep apnea, requiring CPAP at baseline. 6. Deconditioning, severe. 7. Debility, advanced. DISCUSSION AND PLANS: The patient is no longer tolerating dialysis well. Each time she is put on circuit, her blood pressures dropped precipitously. She has multiple comorbidities and lives in a bed-bound status. In this setting, she was dropped on the floor by her care providers. She has significant ecchymoses on the left, likely resulted in splinting. Without deep breathing and vigorous cough, she has created some atelectasis in the left lung for which fluid is taken its void. I did a bedside ultrasound today. There appears to be either consolidated or atelectatic lung next to a small rim of pleural effusion. This appeared to be free-flowing based on my bedside ultrasound evaluation. I tried to sit her up on the side of the bed in order to get a better look, but she was just simply too weak at baseline in order to perform this maneuver. Looking at her trajectory over the past several months, my suspicion is that the patient is on a progressive decline which we are not going to be able to intervene on. I do think the hospice would be an appropriate disposition for Ms. Curiel. Pulmonary will continue to follow while she remains in-house, but from my perspective, she is stable for transition out of the hospital. Job ID: [id number]
--- NOTE | 2018-07-29 10:48 | PRG ---
DATE OF SERVICE: RENAL MEDICINE SUBJECTIVE: Ms. Curiel is an 88-year-old white female with ESRD, currently on maintenance hemodialysis. She was admitted for shortness of breath. We have been attempting to max out fluid removal as tolerated by the patient. She has received extra dialysis for fluid removal. This morning, she is feeling a little better. Shortness of breath is slightly improved. Currently, on BiPAP. No other events noted last night. Repeat chest x-ray has been done, but still currently pending. OBJECTIVE: VITAL SIGNS: Blood pressure is currently 127/70, heart rate 70. GENERAL: Awake, supine, comfortable, not in overt distress. SKIN: Adequate turgor. HEENT: Slightly pale conjunctivae. Anicteric sclerae. NECK: No neck mass. No carotid bruits. No JVD. CHEST: No deformities. LUNGS: Decreased breath sounds. No wheezing. No crackles. HEART: Normal sinus rhythm. No murmurs. No gallops. No rubs. ABDOMEN: Globular, soft, nontender. No masses. EXTREMITIES: Positive for edema, but no deformities. MEDICATIONS: Medications of July 29, 2018, reviewed. LABORATORY DATA: Laboratories of July 29, 2018, hemoglobin is 8.1. Sodium 135, potassium 3.6, carbon dioxide 97, BUN 32, creatinine 3.53, glucose 197, phosphorus 4.8, and calcium is 9.5. ASSESSMENT AND PLAN: 1. End-stage renal disease - my plan is to do an one-hour pure ultrafiltration and then 2 hours of hemodialysis. I am doing this maneuver in the hope of we will be able to remove more fluid and she will tolerate the dialysis without significantly dropping her blood pressure. 2. Congestive heart failure/hypoxemia, max out fluid removal with dialysis. 3. Anemia. Continuing weekly Epogen - p.r.n. blood transfusion. We will check CBC in a.m. Job ID: [id number]
[2018-07-29] MEDS ORDERED: Morphine 4 MG/ML VIAL SLOW IVP PRN (13:01)
[2018-07-29] MEDS ORDERED: Lorazepam 1 MG TAB PO PRN (13:01)
[2018-07-29] MEDS ORDERED: Morphine 4 MG/ML VIAL SLOW IVP SCH (13:15)
[2018-07-29] MEDS ORDERED: Loperamide HCl 2 MG CAP PO PRN (13:32)
[2018-07-29] MEDS ORDERED: diphenhydrAMINE 25 MG CAP PO PRN (13:32)
[2018-07-29] MEDS ORDERED: Hyoscyamine Sulfate SL 0.125 mg Tablet SL PRN (13:32)
[2018-07-29] MEDS ORDERED: Scopolamine 1.5 mg/72 hour Patch TD PRN (13:32)
[2018-07-29] MEDS ORDERED: diphenhydrAMINE 50 MG/ML VIAL IVP PRN (13:32)
[2018-07-29] MEDS ORDERED: Milk Of Magnesia 30 ML UDCUP PO PRN (13:32)
[2018-07-29] MEDS ORDERED: Zolpidem Tartrate 5 MG TAB PO PRN (13:32)
--- NOTE | 2018-07-29 14:18 | PDOC.CTH ---
Cardiology Progress Note - Subjective The pt seen and examined. No overnight events. She is on Bipap. She is having HD today. - Objective Vital Signs Temp Pulse Resp BP Pulse Ox 07/29/18 13:00 79 17 100 07/29/18 11:11 98.6 F 96 23 H 132/68 07/29/18 08:48 113 H 07/29/18 08:03 113 H 22 H 87 L 07/29/18 08:00 88 L 07/29/18 07:24 98.0 F 80 22 H 121/74 94 L 07/29/18 04:00 97.0 F L 68 20 145/57 H 100 07/29/18 02:19 91 13 Admit Weight 160 lb 4 oz Weight 152 lb 8.958 oz 07/28/18 07/29/18 07/30/18 06:59 06:59 06:59 Intake Total 240 Output Total 1400 Balance -1160 - Physical Examination General/Neuro: alert & oriented x3 Lungs: other: (diminished at bases) Heart: RRR Abdomen: soft Extremities: other: (no edema) - Telemetry Telemetry Rhythm: SR - Labs Result Diagrams: 07/29/18 04:27 07/29/18 04:27 Troponin/CKMB CK-MB (CK-2) 1.1 ng/mL (0-6.6) 07/20/18 20:21 Troponin I 0.254 ng/mL (< 0.028) H 07/20/18 20:21 - Assessment/Plan 1. ESRD: on hemodialysis. Difficult to dialyze due to drop in BP. Pt. does have diastolic dysfunction and some degree of . The Syst. fx. is normal. Continue with dialysis for vol. overload. Managed by renal dialysis technician 2. Anemia. On Epoetin; Would try to keep Hgb. around 10. 3. S/P AVR. Normal function by echo. 4. Diastolic dysfunction - the pt's breathing is slowly improving 5. Hospital vs Community aquired PNA. 6. Deconditioned. MAR reviewed Pt. seen and eval. by me. I agree with the A/P by the LOG RAFTER. Multiple medical issues. Poor prognosis.Pt. has decided to be placed on hospice. I will sign off . If any changes then please inform me. Review of Systems - Review of Systems Constitutional: reports: weakness EENTM: reports: no symptoms reported Respiratory: reports: shortness of breath Cardiac (ROS): reports: no symptoms reported ABD/GI: reports: no symptoms reported : reports: no symptoms reported Musculoskeletal: reports: no symptoms reported
[2018-07-29 19:39] VITALS: BP 120/61; TEMP 97.6
--- NOTE | 2018-07-30 15:14 | DIS ---
DATE OF ADMISSION: 07/20/2018 DATE OF DISCHARGE: 07/29/2018 PRIMARY CARE PHYSICIAN: Jerry Robles MD CHIEF COMPLAINT: Shortness of breath. HISTORY OF PRESENT ILLNESS/HOSPITAL COURSE: The patient had been diagnosed with pleural effusion and pulmonary congestion secondary to the patient's diastolic heart failure and pneumonia on an outpatient basis. Continued to grow weaker despite oxygen and CPAP at night and initiation of outpatient antibiotics for less than 24 hours, who presented to the emergency department in the evening of the hospital admit, transitioned from Wednesday, Wednesday, and Wednesday dialysis with Dr. Oakes's care to daily dialysis as the patient has significant respiratory decompensation secondary to fluid overload. The patient responded well as far as chest x-rays appeared regarding infection. Never spiked a fever or showed any positive cultures. We would deescalated on antibiotics, however, with reduction of IV fluids from antibiotic treatment, the patient still struggled on daily dialysis given hypotension was removed off the patient's blood pressure medications and placed on midodrine and steroids with aid of Critical Care, Pulmonary, yet continued to not tolerate fluid removal with dialysis. Did tolerate euvolemic dialysis as well. The patient suffered from symptomatic anemia with respiratory decompensation part way through hospitalization and was transferred to [facility] with BiPAP treatment and transfused 1 unit of PRBCs. Again secondary to her volume overload status, the 2nd unit of PRBCs was not given. The patient did have appropriate rise, but never fully returned to ease of breath while sleeping without CPAP, BiPAP machine. The patient had signed out of hospital DNAR and initially on admit revoked that was full code. Following initiation of further respiratory management and daily dialysis, the patient reaffirmed her prior desire to be a DNAR and Palliative Care was contacted. The patient on an outpatient basis had been essentially bed-bound or wheelchair-bound for approximately 3 weeks prior to hospitalization. She had been hospitalized several times in the last 6 months on Sundays prior to getting her dialysis on Wednesday for volume overload. Given her pattern of decompensation, physicians, the patient, and family at bedside including her medical power of deputy county attorney, all agreed that hospice would be best case scenario for patient as she stated she was tired of dialysis and shortness of breath. The patient had already been accepted with aid of Case Management to [facility] and was transferred on the evening of 07/29/2018 to inpatient hospice where she will discontinue dialysis. Continue comfort care measures were initiated prior to discharge, as well as any respiratory relief on CPAP or nasal cannula. Consultations included Dr. Clint Oakes, Nephrology; Dr. Blakely, Gastroenterology for dysphagia; speech Therapy consultation; Dr. Zamora, Cardiology; Dr. Prince, Critical Care/Pulmonology as well as pertinent repeat echocardiogram showing preserved ejection fraction, continue diastolic function on 07/23/2018. The patient is unable to unable to participate in any meaningful amount with Speech Therapy, so no barium swallow was performed, however, did recommend a mechanical soft diet. Their opinion was that the patient was not going to intake any amount of orals to regain any sort of strength and family did not want to look at tube feeds as that is going to prolong her suffering a life that she did not wish. Most of the patient's home medications were discontinued. Comfort medications including p.r.n. clonidine, oxygen, breathing treatments, Ativan, morphine, nausea medication, anti-secretion medications such as scopolamine and Levsin were recommended. However, she will likely have all Therapy Services provided by hospice on transfer. No followup required as she will likely not last longer than a week. Job ID: [id number]
[2018-08-01 13:21] LABS: Cytoplasmic (C-ANCA) <1:20 titer (Neg:<1:20); Myeloperoxidase AutoAbs <9.0 U/mL (0.0-9.0); Perinuclear (P-ANCA) <1:20 titer (Neg:<1:20); Proteinase-3 AutoAbs Less than 3.5 U/mL (0.0-3.5)
== END 2018-07-29 20:45 | disposition hospice, inpatient (51) | DRG 291 ==
LOC: ERS 20:08 → ERHOLD 22:36 → 2NO 07-22 03:01 → IMCU/EMU 07-25 21:51
PROVIDERS: ADMIT Family Medicine; ATTEND Family Medicine
PROC: 5A1D70Z Performance of Urinary Filtration, Intermittent, Less than 6 Hours Per Day (ICD-10-PCS; principal; 2018-07-21)
PROC: 5A1D70Z Performance of Urinary Filtration, Intermittent, Less than 6 Hours Per Day (ICD-10-PCS; 2018-07-22)
PROC: 5A1D70Z Performance of Urinary Filtration, Intermittent, Less than 6 Hours Per Day (ICD-10-PCS; 2018-07-24)
PROC: 5A1D70Z Performance of Urinary Filtration, Intermittent, Less than 6 Hours Per Day (ICD-10-PCS; 2018-07-25)
PROC: 5A09357 Assistance with Respiratory Ventilation, Less than 24 Consecutive Hours, Continuous Positive Airway Pressure (ICD-10-PCS; 2018-07-25)
PROC: 30233N1 Transfusion of Nonautologous Red Blood Cells into Peripheral Vein, Percutaneous Approach (ICD-10-PCS; 2018-07-25)
PROC: 5A1D70Z Performance of Urinary Filtration, Intermittent, Less than 6 Hours Per Day (ICD-10-PCS; 2018-07-26)
PROC: 5A1D70Z Performance of Urinary Filtration, Intermittent, Less than 6 Hours Per Day (ICD-10-PCS; 2018-07-27)
PROC: 5A1D70Z Performance of Urinary Filtration, Intermittent, Less than 6 Hours Per Day (ICD-10-PCS; 2018-07-29)
DX: I11.0 Hypertensive heart disease with heart failure (principal); J18.9 Pneumonia, unspecified organism; J96.01 Acute respiratory failure with hypoxia; N18.6 End stage renal disease; N01.9 Rapidly progressive nephritic syndrome with unspecified morphologic changes; E43 Unspecified severe protein-calorie malnutrition; I50.33 Acute on chronic diastolic (congestive) heart failure; Z51.5 Encounter for palliative care; Z66 Do not resuscitate; E11.9 Type 2 diabetes mellitus without complications; Y95 Nosocomial condition; E04.2 Nontoxic multinodular goiter; K21.9 Gastro-esophageal reflux disease without esophagitis; E78.5 Hyperlipidemia, unspecified; G47.33 Obstructive sleep apnea (adult) (pediatric); Z68.25 Body mass index [BMI] 25.0-25.9, adult; D63.1 Anemia in chronic kidney disease; R13.10 Dysphagia, unspecified; Z99.2 Dependence on renal dialysis; Z99.3 Dependence on wheelchair; Z74.01 Bed confinement status; Z85.3 Personal history of malignant neoplasm of breast; Z79.01 Long term (current) use of anticoagulants; Z79.84 Long term (current) use of oral hypoglycemic drugs; Z79.52 Long term (current) use of systemic steroids; Z79.899 Other long term (current) drug therapy; Z90.13 Acquired absence of bilateral breasts and nipples; Z95.2 Presence of prosthetic heart valve
CPT/HCPCS: 36415; 36416; 36430; 71045; 71046; 80048; 80053; 80202; 82550; 82553; 83520; 83605; 83690; 83735; 83880; 84100; 84484; 85014; 85018; 85025; 86256; 86850; 86900; 86901; 87040; 87804; 90935; 93005; 93010; 93306; 94640; 94660; 94760; 96361; 96365; 96366; 96367; 96368; 96375; G0257; J1720; J1940; J1956; J2543; J3370; J7050; J7500; J7620; P9016; Q4081